=== PATIENT | female | born 1960 | race Caucasian/White ===

== ENCOUNTER 2016-11-11 08:10 | Outpatient (CLI) ==
[2015-05-18 16:23] VITALS: BMI 30.6
[2016-11-11 08:29] LABS: BASOPHILS % (AUTO) 0.4 % (0.0-3.0); EOSINOPHILS # (AUTO) 0.2 K/ul (0.0-0.7); EOSINOPHILS % (AUTO) 1.6 % (0.0-7.0); HEMOGLOBIN 14.2 g/dl (12.0-16.0); IMMATURE GRANULOCYTE % (AUTO) 0.6 % (0.0-5.0); MEAN CORPUSCULAR HEMOGLOBIN 30.6 pg (27.0-31.0); MEAN CORPUSCULAR HGB CONC 33.8 (31.8-35.4); MEAN CORPUSCULAR VOLUME 90.5 fl (81.0-99.0); MONOCYTES # (AUTO) 0.5 K/uL (0.4-2.0); MONOCYTES % (AUTO) 5.2 (0-10); NEUTROPHILS # (AUTO) 7.5 K/ul (2.0-6.9); NEUTROPHILS % (AUTO) 73.2; PLATELET COUNT 241 10^3/uL (140-440); RED BLOOD COUNT 4.64 10^6/ul (4.20-5.40); WHITE BLOOD COUNT 10.26 K/ul (4.6-10.2)
[2016-11-11 08:52] LABS: ALBUMIN 3.2 g/dL (3.4-5.0); ALBUMIN/GLOBULIN RATIO 1.03; ANION GAP 11.4; BILIRUBIN,TOTAL 0.73 mg/dL (0.00-1.20); BUN/CREATININE RATIO 14.47; CALCIUM 8.9 mg/dL (8.2-10.2); CHOL/HDL RATIO 3.5 (4.5-5.5); CREATININE 0.76 mg/dL (0.60-1.30); POTASSIUM 4.4 mmol/L (3.5-5.10); TOTAL PROTEIN 6.3 g/dL (6.4-8.2)
== END 2016-11-11 08:11 | disposition home or self-care (01) ==
LOC: LAB 08:10
PROVIDERS: ATTEND Nurse Practitioner Family
DX: E11.9 Type 2 diabetes mellitus without complications (principal); E78.5 Hyperlipidemia, unspecified; I10 Essential (primary) hypertension
CPT/HCPCS: 36415; 80053; 80061; 83036; 85025

== ENCOUNTER 2017-01-25 09:29 | Emergency (ER) ==
[2017-01-25 09:38] VITALS: BP 137/97; TEMP 98; BMI 30.2
[2017-01-25] MEDS ORDERED: DILAUDID 1 MG/ML SYRINGE ONE (09:46)
[2017-01-25] MEDS ORDERED: SODIUM CHLORIDE 1,000 ML IV STA (09:46)
[2017-01-25] MEDS ORDERED: ZOFRAN 4 MG/2 ML IVP STA (09:46)
[2017-01-25] MEDS ORDERED: DILAUDID 1 MG/ML SYRINGE IVP STA (09:46)
[2017-01-25] MEDS ORDERED: DUONEB NEB STA (09:47)
[2017-01-25] MEDS ORDERED: TORADOL IVP STA (09:50)
[2017-01-25 09:55] LABS: ABG PCO2 41.9 mmHg (35-45); ABG PH 7.372 (7.35-7.45)
[2017-01-25 09:56] LABS: ABG BASE EXCESS -1 (-2.0-2.0); ABG HCO3 24.4 (22.0-26.0); ABG TCO2 26 (22.0-28.0)
[2017-01-25 10:07] LABS: BASOPHILS # (AUTO) 0.1 K/uL (0-0.2); BASOPHILS % (AUTO) 0.5 % (0.0-3.0); EOSINOPHILS # (AUTO) 0.1 K/ul (0.0-0.7); EOSINOPHILS % (AUTO) 1.2 % (0.0-7.0); HEMOGLOBIN 14.8 g/dl (12.0-16.0); IMMATURE GRANULOCYTE % (AUTO) 0.6 % (0.0-5.0); LYMPHOCYTES % (AUTO) 20.2 (10.0-50.0); MEAN CORPUSCULAR HEMOGLOBIN 30.8 pg (27.0-31.0); MEAN CORPUSCULAR HGB CONC 34.4 (31.8-35.4); MEAN CORPUSCULAR VOLUME 89.6 fl (81.0-99.0); MONOCYTES # (AUTO) 0.5 K/uL (0.4-2.0); MONOCYTES % (AUTO) 4.6 (0-10); NEUTROPHILS # (AUTO) 7.4 K/ul (2.0-6.9); NEUTROPHILS % (AUTO) 72.9; PLATELET COUNT 250 10^3/uL (140-440); WHITE BLOOD COUNT 10.09 K/ul (4.6-10.2)
--- NOTE | 2017-01-25 10:22 | CT ---
Exam: CT of the chest without contrast History: Fall with back pain Technique: [address] of the chest without intravascular contrast FINDINGS: Moderate sized right pneumothorax accounting for about 60% lung volume. The left lung is clear. There is no pleural fluid. Atherosclerotic calcification of the aorta and coronary arterie s. Small hiatus hernia is present. Right chest wall subcutaneous emphysema. Right posterolateral 8th, 7th, 6th rib fractures. Rib fractures are nondisplaced. The thoracic spine is intact. Sternu m is intact. No acute findings of the upper abdomen. Impression: 1. Critical result: Right pneumothorax accounting for about 60% lung volume 2. Right posterior sixth, seventh, eighth rib fractures are nondisplaced. The findings were discussed with ordering physician at 1018 hours Central time.
[2017-01-25 10:38] LABS: ALANINE AMINOTRANSFERASE 17 U/L (12-78); ALBUMIN 3.3 g/dL (3.4-5.0); ALBUMIN/GLOBULIN RATIO 1.06; ALKALINE PHOSPHATASE 91 U/L (42-98); ASPARTATE AMINO TRANSFERASE 15 U/L (15-37); BILIRUBIN,TOTAL 1.05 mg/dL (0.00-1.20); BLOOD UREA NITROGEN 11 mg/dL (7-18); BUN/CREATININE RATIO 14.66; CALCIUM 8.8 mg/dL (8.2-10.2); CARBON DIOXIDE 24 mmol/L (21-32); CHLORIDE 108 mmol/L (98-107); CREATINE KINASE 26 U/L; CREATININE 0.75 mg/dL (0.60-1.30); GLUCOSE 234 mg/dL (70-110); SODIUM 140 mmol/L (136-145); TOTAL PROTEIN 6.4 g/dL (6.4-8.2)
--- NOTE | 2017-01-25 10:44 | ED.PDOC ---
General ED Provider: Dr. FENG MILLAN Chief Complaint: Fall Stated Complaint: Patient is a 56 year old female who has a history of DM and COPD who comes to the ER with right chest pain with difficuly breathing due to pain each time she tries to take a breath. She fell 7 steps also hit her head. Time Seen by Physician: 09:30 Mode of Arrival: Wheelchair Information Source: Patient, Family Exam Limitations: No limitations Primary Care Provider: SERA [facility] Nursing and Triage Documentation Reviewed and Agree: Yes Trauma/Injury Complaint Exam - Truncal Trauma Complaint/Exam Location of Pain: Reports: Right, Posterior, Chest Onset: just prior to arrival Symptoms Are: Still present Onset of Pain: Reports: Post accident Initial Severity: Severe Current Severity: Severe Mechanism: Reports: Blunt trauma, Fall Aggravating: Reports: Movement, Deep breathing Alleviating: Reports: None Associated Signs and Symptoms: Reports: Short of air, Chest pain Related History: Reports: COPD. Denies: Similar episode, Occupational injury, Anticoagulants, Prior rib fracture Immobilization Removed Post Exam: No Vertebral Tenderness Present: No Vertebral Deformity Present: No Trachial Deviation Present: No JVD Present: No Crepitus Present: No Diminished Breath Sounds: No Paradoxical Chest Wall Movement Present: No Abdominal Guarding Present: No Abdominal Rigidity Present: No Skin Findings: Present: Contusion Chest and Back Picture: 1 - subcutenous emphazema. Differential Diagnoses: Pneumothorax, Rib Fracture - Trauma Complaint/Exam Location of Pain or Injury: Reports: Head Mechanism of Injury: Reports: Fall Onset/Duration: just prior to arrival Symptoms Are: Still present Timing of Treatment: Immediate Initial Severity: Mild Current Severity: Mild Character: Reports: Aching Aggravating: Reports: None Alleviating: Reports: None Associated Signs and Symptoms: Reports: Swelling. Denies: LOC, Confusion, Memory loss, Lethargy, Vomiting, Bleeding, Extremity disuse, Painful respiration , Hoarseness, Dysphagia, Hemoptysis, Significant blood loss Related History: Denies: Similar episode, Alcohol abuse, Drug abuse, Alleged assault, Anticoagulants, Occupational injury Trauma Findings: Present: Decreased breath sounds (right lower lung ). Absent: Dental tenderness Skin Findings: Present: Normal findings, Tenderness Differential Diagnoses: Fracture Review of Systems - Review Of Systems Constitutional: Reports: No symptoms Eyes: Reports: No symptoms Ears, Nose, Mouth, Throat: Reports: No symptoms Respiratory: Reports: Short of air Cardiac: Reports: Chest pain GI: Reports: No symptoms : Reports: No symptoms Musculoskeletal: Reports: No symptoms Skin: Reports: No symptoms Neurological: Reports: Anxiety Endocrine: Reports: No symptoms Hematologic/Lymphatic: Reports: No symptoms All Other Systems: Reviewed and Negative Past Medical History - Past Medical History Endocrine: Reports: DM 2 Cardiovascular: Reports: Hypertension Respiratory: Reports: COPD Hematological: Reports: None Gastrointestinal: Reports: None Genitourinary: Reports: None Neuro/Psych: Reports: None Musculoskeletal: Reports: Arthritis Cancer: Reports: None Last Menstrual Period: menopause Other Pertinent Past Medical History: GALLBLADDER REMOVAL, APPENDECTOMY, HYSTERECTOMY - Surgical History General Surgical History: Reports: Hysterectomy, Appendectomy, Cholecystectomy - Family History Family History: Reports: Unknown - Social History Smoking Status: Current every day smoker Hx Substance Use: No Alcohol Screening: None Physical Exam - Physical Exam Appearance: Ill-appearing, Obese Ill-appearing: Severe Pain Distress: Severe Eyes: MELISSA, EOMI, Conjunctiva clear Neck: Supple (Trachia Midline.) Respiratory: Airway patent, Breath sounds equal, Breath sounds diminished (on the right base, good breath sounds on the right upper anterior chest. ), Respirations nonlabored Cardiovascular: RRR, Pulses normal, No rub, No murmur GI/: Soft, Nontender, No masses, Bowel sounds normal, No Organomegaly Musculoskeletal: Normal strength, ROM intact, No edema, No calf tenderness Skin: Warm, Dry Neurological: Sensation intact, Motor intact Psychiatric: Anxious Interpretation - Radiology Interpretation Radiology Interpretation By: Radiologist Radiology Results: Positive Exam Interpreted: CT Scan (6,7.8 non displaced rib fracture with 60% pneumonthorax. 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 hence no signs of Tension pneumothorax at this time. VS stable. Course - Course Hematology/Chemistry: 01/25/17 09:55 01/25/17 09:55 Orders, Labs, Meds: Lab Review 01/25/17 01/25/17 09:53 09:55 WBC 10.09 RBC 4.80 Hgb 14.8 Hct 43.0 MCV 89.6 MCH 30.8 MCHC 34.4 RDW Coeff of Balwinder 11.9 Plt Count 250 Immature Gran % (Auto) 0.6 Neut % (Auto) 72.9 Lymph % (Auto) 20.2 Graves % (Auto) 4.6 Eos % (Auto) 1.2 Baso % (Auto) 0.5 Immature Gran # (Auto) 0.1 Neut # 7.4 H Lymph # 2.0 Graves # 0.5 Eos # 0.1 Baso # 0.1 D-Dimer (Manual) 1254.43 Puncture Site Rrad O2 Saturation 89.0 L ABG pH 7.372 ABG pCO2 41.9 ABG pO2 57.0 L* ABG HCO3 24.4 ABG Total CO2 26 ABG Base Excess -1 Aniket Test + FiO2 % 21.0 Sodium 140 Potassium 4.0 Chloride 108 H Carbon Dioxide 24 Anion Gap 12.0 BUN 11 Creatinine 0.75 Estimated GFR (MDRD) 79.00 BUN/Creatinine Ratio 14.66 Glucose 234 H Lactic Acid 12.0 Calcium 8.8 Total Bilirubin 1.05 AST 15 ALT 17 Alkaline Phosphatase 91 Total Creatine Kinase 26 Troponin I < 0.0100 B-Natriuretic Peptide 118 H Total Protein 6.4 Albumin 3.3 L Globulin 3.1 Albumin/Globulin Ratio 1.06 Procalcitonin < 0.05 Orders Category Date Time Status ABG DRAW REQUEST Stat CARDIO 01/25/17 09:52 Completed EKG-(ED ONLY) Stat CARDIO 01/25/17 09:45 Completed NEBULIZER TREATMENT Stat CARDIO 01/25/17 09:47 Completed ABG Routine LAB 01/25/17 09:53 Completed B-TYPE NATRIURETIC PEPTIDE Stat LAB 01/25/17 09:55 Completed BLOOD CULTURE Stat LAB 01/25/17 09:55 Received CBC W/ AUTO DIFF Stat LAB 01/25/17 09:55 Completed COMPREHENSIVE METABOLIC PANEL Stat LAB 01/25/17 09:55 Completed CREATINE KINASE Stat LAB 01/25/17 09:55 Completed D-DIMER Stat LAB 01/25/17 09:55 Completed LACTIC ACID Stat LAB 01/25/17 09:55 Completed PROCALCITONIN Stat LAB 01/25/17 09:55 Completed TROPONIN I Stat LAB 01/25/17 09:55 Completed Hydromorphone HCl [Dilaudid 1 mg/ml Syringe] MEDS 01/25/17 09:46 Discontinued 1 mg .ROUTE .STK-MED ONE Hydromorphone HCl [Dilaudid 1 mg/ml Syringe] MEDS 01/25/17 09:46 Discontinued 1 mg IVP ONCE STA Ipratropium/Albuterol Neb [Duoneb] MEDS 01/25/17 09:47 Discontinued 1 vial NEB ONCE STA Ketorolac Tromethamine [Toradol] MEDS 01/25/17 09:50 Discontinued 30 mg IVP ONCE STA Ondansetron HCl/Pf [Zofran 4 mg/2 ml] MEDS 01/25/17 09:46 Discontinued 4 mg IVP ONCE STA Sodium Chloride 0.9% [Sodium Chloride] 1,000 ml MEDS 01/25/17 09:[address] CHEST W/O CONTRAST Stat RADS 01/25/17 09:[address] HEAD W/O CONTRAST Stat RADS 01/25/17 10:44 Completed Medications Discontinued Medications Generic Name Dose Route Start Last Admin Trade Name Freq PRN Reason Stop Dose Admin Albuterol/Ipratropium 1 vial 01/25/17 09:47 01/25/17 10:22 Duoneb NEB 01/25/17 09:48 1 vial ONCE STA Administration Hydromorphone HCl 1 mg 01/25/17 09:46 01/25/17 09:51 Dilaudid 1 Mg/Ml Syringe IVP 01/25/17 09:47 1 mg ONCE STA Administration Sodium Chloride 1,000 mls @ 1,000 mls/hr 01/25/17 09:46 01/25/17 10:14 Sodium Chloride IV 01/25/17 10:45 1,000 mls/hr BOLUS STA Administration Ketorolac Tromethamine 30 mg 01/25/17 09:50 01/25/17 10:17 Toradol IVP 01/25/17 09:51 30 mg ONCE STA Administration Ondansetron HCl 4 mg 01/25/17 09:46 01/25/17 10:14 Zofran 4 Mg/2 Ml IVP 01/25/17 09:47 4 mg ONCE STA Administration Vital Signs: Temp Pulse Resp BP Pulse Ox 01/25/17 09:29 98 F 101 H 20 137/97 H 94 L Departure - Departure Time of Disposition: 10:45 Disposition: TSF SHORT-TRM HOSP Discharge Problem: Ribs, multiple fractures Qualifiers: Encounter type: initial encounter Fracture type: closed Laterality: right Qualifier Code: (S22.41XA) Multiple fractures of ribs, right side, initial encounter for closed fracture Pneumothorax, closed, traumatic Qualifiers: Encounter type: initial encounter Qualifier Code: (S27.0XXA) Traumatic pneumothorax, initial encounter Condition: Stable Pt referred to PMD for follow-up: No Allergies/Adverse Reactions: Allergies iodine Adverse Reaction (Verified 01/25/17 09:50) Home Medications: Ambulatory Orders Glipizide [Glucotrol] 10 mg PO BID #60 tablet 01/02/15 Omeprazole [Prilosec] 20 mg PO DAILY #30 01/02/15 Aspirin 81 mg PO ONCE 05/25/15 Nitroglycerin 0.4 mg SL PRN 05/25/15 Metoprolol Succinate 75 mg PO BID 10/09/15 Clopidogrel Bisulfate [Clopidogrel] 75 mg PO DAILY 01/25/17 Mirabegron [Myrbetriq] 25 mg PO DAILY 01/25/17 Multivitamin [Multi-Vitamin Daily] 1 each PO DAILY 01/25/17
--- NOTE | 2017-01-25 11:07 | CT ---
EXAM: CT brain without contrast HISTORY: Fall with injury and pain TECHNIQUE: CT of the brain without intravenous contrast FINDINGS: There is no acute hemorrhage midline shift or mass effect. No hydrocephalus or abnormal extra-axial fluid collection. Generalized involutional atrophy, mild. Chronic microvascular change s of the white matter tracts, mild. No acute large vessel territorial infarct is seen. The bony cr anium appears normal. The visualized paranasal sinuses are clear. Right parietal scalp swelling. IMPRESSION: 1. Chronic changes as described. No acute intracranial abnormality is seen.
== END 2017-01-25 11:05 | disposition short-term general hospital (02) ==
LOC: ED 09:29
DX: S22.41XA Multiple fractures of ribs, right side, initial encounter for closed fracture (principal); S27.0XXA Traumatic pneumothorax, initial encounter; S09.90XA Unspecified injury of head, initial encounter; W10.9XXA Fall (on) (from) unspecified stairs and steps, initial encounter; E11.9 Type 2 diabetes mellitus without complications; I10 Essential (primary) hypertension; J44.9 Chronic obstructive pulmonary disease, unspecified; F17.210 Nicotine dependence, cigarettes, uncomplicated; Z79.899 Other long term (current) drug therapy
CPT/HCPCS: 36415; 80053; 82550; 82803; 83605; 83880; 84145; 84484; 85025; 85379; 87040; 93005; 93010; 94640; 96360; 96375; 99285

== ENCOUNTER 2017-01-25 11:15 | Outpatient (CLI) ==
[2017-01-25 09:38] VITALS: BMI 30.2
== END 2017-01-25 11:16 | disposition home or self-care (01) ==
LOC: AMBL 11:15
PROVIDERS: ATTEND Internal Medicine Geriatric Medicine
DX: S27.0XXA Traumatic pneumothorax, initial encounter (principal); S22.41XA Multiple fractures of ribs, right side, initial encounter for closed fracture; R06.9 Unspecified abnormalities of breathing; S09.90XA Unspecified injury of head, initial encounter; I49.3 Ventricular premature depolarization; W10.9XXA Fall (on) (from) unspecified stairs and steps, initial encounter

== ENCOUNTER 2017-02-24 16:06 | Outpatient (CLI) ==
--- NOTE | 2017-02-24 16:43 | DI ---
EXAM: Two views of the chest. History: Trauma and known rib fractures. Comparison: Chest radiograph 05/18/2015, chest CT 01/25/2017 Findings: Heart size is normal. No pneumothorax. No consolidation. No pleural fluid. Multiple d isplaced right rib fractures again noted with probable early callus formation. Impression: No acute cardiopulmonary process. Healing right rib fractures.
== END 2017-02-24 16:07 | disposition home or self-care (01) ==
LOC: RAD 16:06
PROVIDERS: ATTEND Nurse Practitioner Family
DX: S22.49XA Multiple fractures of ribs, unspecified side, initial encounter for closed fracture (principal); Z72.0 Tobacco use

== ENCOUNTER 2017-03-27 16:40 | Outpatient (CLI) ==
[2017-03-27 16:55] LABS: BASOPHILS % (AUTO) 0.6 % (0.0-3.0); EOSINOPHILS # (AUTO) 0.1 K/ul (0.0-0.7); EOSINOPHILS % (AUTO) 1.3 % (0.0-7.0); HEMATOCRIT 43.8 % (37.0-47.0); HEMOGLOBIN 14.7 g/dl (12.0-16.0); IMMATURE GRANULOCYTE % (AUTO) 0.4 % (0.0-5.0); LYMPHOCYTES # (AUTO) 2.4 K/uL (0.60-3.4); LYMPHOCYTES % (AUTO) 34.4 (10.0-50.0); MEAN CORPUSCULAR HEMOGLOBIN 29.9 pg (27.0-31.0); MEAN CORPUSCULAR HGB CONC 33.6 (31.8-35.4); MONOCYTES # (AUTO) 0.5 K/uL (0.4-2.0); MONOCYTES % (AUTO) 6.6 (0-10); NEUTROPHILS # (AUTO) 3.9 K/ul (2.0-6.9); NEUTROPHILS % (AUTO) 56.7; PLATELET COUNT 320 10^3/uL (140-440); RED BLOOD COUNT 4.92 10^6/ul (4.20-5.40); WHITE BLOOD COUNT 6.87 K/ul (4.6-10.2)
[2017-03-27 17:02] LABS: ALBUMIN 3.5 g/dL (3.4-5.0); ALBUMIN/GLOBULIN RATIO 1.06; ANION GAP 15.1; BILIRUBIN,TOTAL 1.11 mg/dL (0.00-1.20); BUN/CREATININE RATIO 16.16; CALCIUM 9.4 mg/dL (8.2-10.2); CREATININE 0.99 mg/dL (0.60-1.30); POTASSIUM 4.1 mmol/L (3.5-5.10); TOTAL PROTEIN 6.8 g/dL (6.4-8.2)
== END 2017-03-27 16:41 | disposition home or self-care (01) ==
LOC: LAB 16:40
PROVIDERS: ATTEND Nurse Practitioner Family
DX: E11.9 Type 2 diabetes mellitus without complications (principal); R11.2 Nausea with vomiting, unspecified; R53.83 Other fatigue
CPT/HCPCS: 36415; 80053; 83036; 85025

== ENCOUNTER 2017-04-10 08:17 | Emergency (ER) ==
[2017-04-10] MEDS ORDERED: ASPIRIN CHEWABLE ONE (08:21)
[2017-04-10] MEDS ORDERED: ASPIRIN CHEWABLE PO STA (08:21)
[2017-04-10 08:32] VITALS: BP 132/84; TEMP 96.3; BMI 32.5
[2017-04-10 08:35] LABS: BASOPHILS # (AUTO) 0.1 K/uL (0-0.2); BASOPHILS % (AUTO) 0.6 % (0.0-3.0); EOSINOPHILS # (AUTO) 0.1 K/ul (0.0-0.7); EOSINOPHILS % (AUTO) 0.7 % (0.0-7.0); HEMATOCRIT 40.1 % (37.0-47.0); HEMOGLOBIN 13.9 g/dl (12.0-16.0); IMMATURE GRANULOCYTE % (AUTO) 0.6 % (0.0-5.0); LYMPHOCYTES # (AUTO) 2.8 K/uL (0.60-3.4); MEAN CORPUSCULAR HEMOGLOBIN 30.2 pg (27.0-31.0); MEAN CORPUSCULAR HGB CONC 34.7 (31.8-35.4); MEAN CORPUSCULAR VOLUME 87.2 fl (81.0-99.0); MONOCYTES # (AUTO) 0.6 K/uL (0.4-2.0); MONOCYTES % (AUTO) 5.6 (0-10); NEUTROPHILS # (AUTO) 6.7 K/ul (2.0-6.9); NEUTROPHILS % (AUTO) 65.5; PLATELET COUNT 397 10^3/uL (140-440)
--- NOTE | 2017-04-10 08:50 | ED.PDOC ---
General ED Provider: Dr. SACHI SANCHEZ-ER Chief Complaint: Chest Pain Stated Complaint: im hurting and it feels like my heart attack last fall Time Seen by Physician: 08:30 Mode of Arrival: Walk-In Information Source: Patient Exam Limitations: No limitations [facility] and Triage Documentation Reviewed and Agree: Yes Cardiovascular Complaint Exam - Chest Pain Complaint/Exam Onset: Sudden Duration: 30 min Symptoms Are: Still present Timing: Constant Initial Severity: Moderate Current Severity: Moderate Location: Reports: Diffuse, Discrete Pain Radiates: Reports: Neck Character: Reports: Dull, Aching, Burning, Heaviness Aggravating: Reports: None Alleviating: Reports: Nitro Associated Signs and Symptoms: Reports: Diaphoresis, Nausea. Denies: Vomiting, Fever, Palpitations, Cough, Hemoptysis, Back pain, Abdominal pain, Dizziness, Short of air, Calf pain, Calf swelling Related History: Reports: Similar episode Related Surgical History: Reports: Cardiac Cath History of Healthcare-Acquired Pneumonia: Reports: No AMI/ACS Risk Factors: Reports: Myocardial Infarction TAD Risk Factors: Reports: None Pulmonary Embolism Risk Factors: Reports: None Prior Care for this Complaint: No Recent Stress Test: No Recent Echo/LV Function: No JVD Present: No Subcutaneous Emphysema Present: No Diminshed Breath Sounds: No Reproducible Chest Wall Pain: No Bilateral Pulses Present: Yes Unequal Pulses Noted: No If Risk Factors for AMI/ACS Consider: EKG, Cardiac Enzymes, Oxygen, Aspirin 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 Differential Diagnoses: Acute [place], ACS Quality Indicator For Non-Traumatic Chest Pain/Syncope: EKG Performed Review of Systems - Review Of Systems Constitutional: Reports: No symptoms Eyes: Reports: No symptoms Ears, Nose, Mouth, Throat: Reports: No symptoms Respiratory: Reports: Short of air Cardiac: Reports: Chest pain GI: Reports: No symptoms : Reports: No symptoms Musculoskeletal: Reports: No symptoms Skin: Reports: No symptoms Neurological: Reports: No symptoms Endocrine: Reports: No symptoms Hematologic/Lymphatic: Reports: No symptoms All Other Systems: Reviewed and Negative Past Medical History - Past Medical History Previously Healthy: No Endocrine: Reports: DM 2 Cardiovascular: Reports: CAD, UT, Hypertension Respiratory: Reports: COPD Hematological: Reports: None Gastrointestinal: Reports: None Genitourinary: Reports: None Neuro/Psych: Reports: None Musculoskeletal: Reports: Arthritis Cancer: Reports: None Last Menstrual Period: hysterectomy Other Pertinent Past Medical History: GALLBLADDER REMOVAL, APPENDECTOMY, HYSTERECTOMY - Surgical History General Surgical History: Reports: Hysterectomy, Appendectomy, Cholecystectomy - Family History Family History: Reports: Unknown - Social History Smoking Status: Former smoker Hx Substance Use: No Alcohol Screening: None Lives: With family Physical Exam - Physical Exam Appearance: Well-appearing, No pain distress, Well-nourished Pain Distress: Moderate Eyes: MELISSA, EOMI, Conjunctiva clear ENT: Ears normal, Nose normal, Oropharynx normal Neck: Supple Respiratory: Airway patent Cardiovascular: RRR, Pulses normal, No rub, No murmur GI/: Soft, Nontender, No masses, Bowel sounds normal, No Organomegaly Musculoskeletal: Normal strength, ROM intact, No edema, No calf tenderness Skin: Warm, Dry, Normal color Neurological: Sensation intact, Motor intact, Reflexes intact, Cranial nerves intact, Alert, Oriented Psychiatric: Affect appropriate, Mood appropriate Interpretation - EKG Interpretation Time of EKG #1: 08:50 Rate: Normal Rhythm: Sinus Ectopy: None [place]: NL ST Segment: Other Interpretation: st-t wave changes Re-Evaluation - Re-Evaluation Time of Re-Evaluation: 08:45 Status: Improved Vital Signs Stable: Yes Pain Level: 1 Appearance: NAD Lungs: Clear Skin: Warm and Dry Neuro: Alert and Oriented X3 CV: RRR Physician Notification - Case Discussed Physician Notified: dr jones(called transfer center--left two messages--we called dr cheung in [place] Critical Care Note - Critical Care Note Total Time (mins): 15 Course - Course Orders, Labs, Meds: Orders Category Date Time Status EKG-(ED ONLY) Stat CARDIO 04/10/17 08:20 Completed [employer] Analyst [ED DUMPSTER OPERATOR APPLIED] .ONCE EMERGENCY 04/10/17 08:21 Active IV [ED IV/MEDIPORT/POWERPORT] .ONCE EMERGENCY 04/10/17 08:20 Active OXYGEN [ED APPLY O2] .ONCE EMERGENCY 04/10/17 08:20 Active AMYLASE Stat LAB 04/10/17 08:24 Received BNP [B-TYPE NATRIURETIC PEPTIDE] Stat LAB 04/10/17 08:24 Received CBC W/ AUTO DIFF Stat LAB 04/10/17 08:24 Received COMPREHENSIVE METABOLIC PANEL Stat LAB 04/10/17 08:24 Received CREATINE KINASE Stat LAB 04/10/17 08:24 Received LIPASE Stat LAB 04/10/17 08:24 Received TROPONIN I Stat LAB 04/10/17 08:24 Received 0.9 % Sodium Chloride [Saline Flush] MEDS 04/10/17 08:20 Active 1 syr IVF PRN PRN Aspirin [Aspirin Chewable] MEDS 04/10/17 08:21 Discontinued 324 mg .ROUTE .STK-MED ONE Aspirin [Aspirin Chewable] MEDS 04/10/17 08:21 Discontinued 324 mg PO ONCE STA Medications Generic Name Dose Route Start Last Admin Trade Name Freq PRN Reason Stop Dose Admin Sodium Chloride 1 syr 04/10/17 08:20 Saline Flush IVF PRN PRN To flush IV Discontinued Medications Generic Name Dose Route Start Last Admin Trade Name Freq PRN Reason Stop Dose Admin Aspirin 324 mg 04/10/17 08:21 Aspirin Chewable PO 04/10/17 08:22 ONCE STA Vital Signs: Temp Pulse Resp BP Pulse Ox 04/10/17 08:25 96.3 F L 124 H 24 132/84 95 AKIL Risk Score AKIL Risk Score: Risk Score Odds of by 30D 0 0.1 (0.1-0.2) 1 0.3 (0.2-0.3) 2 0.4 (0.3-0.5) 3 0.7 (0.6-0.9) 4 1.2 (1.0-1.5) 5 2.2 (1.9-2.6) 6 3.0 (2.5-3.6) 7 4.8 (3.8-6.1) Departure - Departure Time of Disposition: 08:52 Disposition: TSF SHORT-TRM HOSP Discharge Problem: Chest pain Instructions: Chest Pain (ED) Condition: Fair Pt referred to PMD for follow-up: Yes Allergies/Adverse Reactions: Allergies iodine Adverse Reaction (Verified 01/25/17 09:50) Home Medications: Ambulatory Orders Glipizide [Glucotrol] 10 mg PO BID #60 tablet 01/02/15 Omeprazole [Prilosec] 20 mg PO DAILY #30 01/02/15 Aspirin 81 mg PO ONCE 05/25/15 Nitroglycerin 0.4 mg SL PRN 05/25/15 Clopidogrel Bisulfate [Clopidogrel] 75 mg PO DAILY 01/25/17 Mirabegron [Myrbetriq] 25 mg PO DAILY 01/25/17 Multivitamin [Multi-Vitamin Daily] 1 each PO DAILY 01/25/17 Aspirin 81 mg PO d 02/14/17 Cyanocobalamin (Vitamin B-12) [Liquid B-12] 5,000 mcg PO d 02/14/17 Glipizide 10 mg PO BID 02/14/17 Metoprolol Succinate 75 mg PO d 02/14/17 Transfer Form Completed: Yes Disposition Discussed With: Patient
[2017-04-10 09:06] LABS: ALBUMIN 3.7 g/dL (3.4-5.0); ALBUMIN/GLOBULIN RATIO 1.12; ANION GAP 19.8; BILIRUBIN,TOTAL 1.21 mg/dL (0.00-1.20); BUN/CREATININE RATIO 13.84; CALCIUM 10.1 mg/dL (8.2-10.2); CREATININE 1.95 mg/dL (0.60-1.30); POTASSIUM 3.8 mmol/L (3.5-5.10); TROPONIN I 0.017 ng/ml (0.0000-0.4000)
== END 2017-04-10 08:47 | disposition short-term general hospital (02) ==
LOC: ED 08:17
DX: R07.9 Chest pain, unspecified (principal); R06.02 Shortness of breath; I25.10 Atherosclerotic heart disease of native coronary artery without angina pectoris; E11.9 Type 2 diabetes mellitus without complications; I10 Essential (primary) hypertension; I25.2 Old myocardial infarction; J44.9 Chronic obstructive pulmonary disease, unspecified; Z79.899 Other long term (current) drug therapy
CPT/HCPCS: 36415; 80053; 82150; 82550; 83690; 83880; 84484; 85025; 93005; 93010; 99285

== ENCOUNTER 2017-04-10 08:47 | Outpatient (CLI) ==
[2017-04-10 08:32] VITALS: BMI 32.5
== END 2017-04-10 08:48 | disposition short-term general hospital (02) ==
LOC: AMBL 08:47
PROVIDERS: ATTEND Family Medicine
DX: R07.9 Chest pain, unspecified (principal)

== ENCOUNTER 2017-05-14 07:20 | Outpatient (CLI) ==
--- NOTE | 2017-05-14 08:31 | US ---
EXAM: Ultrasound retroperitoneal complete. HISTORY: Hematuria. Right renal cyst COMPARISON: CT 05/09/2017. TECHNIQUE: Multiple varghese scale and color Doppler images. FINDINGS: Right kidney measures 9.1 x 3.8 x 3.5 cm and contains a simple cyst measuring approximate ly 2.3 x 1.3 x 1.5 cm. The left kidney measures 11.6 x 4.7 x 4.3 cm. 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 Thi s makes assessment for focal cortical lesions in the left kidney difficult. The focal hypoechoic ar ea measuring approximately 3.7 x 3.4 cm in the mid left renal cortex was measured by the technologis t. Cortical echogenicity in both kidneys is normal. There is no hydronephrosis. Urinary bladder is unremarkable. IMPRESSION: 1. 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 Consider follow-up abdominal MRI contrast e nhanced CT to exclude a mass. 2. Simple right renal cyst.
== END 2017-05-14 07:21 | disposition home or self-care (01) ==
LOC: RAD 07:20
PROVIDERS: ATTEND Nurse Practitioner Family
DX: R31.9 Hematuria, unspecified (principal); N28.1 Cyst of kidney, acquired
CPT/HCPCS: 76770

== ENCOUNTER 2017-06-28 15:32 | Emergency (ER) ==
[2017-06-28 15:42] VITALS: BP 110/64; TEMP 98; BMI 33.6
--- NOTE | 2017-06-28 16:18 | ED.PDOC ---
General ED Provider: Dr. ADY JUAREZ Chief Complaint: Diabetes Stated Complaint: Feeling run down for one week. Home accuchecks running >400 every day, and >600 today. No dysuria but has increased urinary frequency. Also dx'd with "mass on my kidney" for which she's getting more work up on Friday. Time Seen by Physician: 16:06 Mode of Arrival: Walk-In Information Source: Patient Exam Limitations: No limitations [facility] and Triage Documentation Reviewed and Agree: Yes Miscellaneous Complaint Exam - Complex/Multi-System Complaint/Exam Onset/Duration: 1 week Symptoms Are: Still present Initial Severity: Mild Current Severity: Moderate Location of Pain: No pain Associated Signs and Symptoms: Reports: Weakness, Dysuria (no difficulty urinating but much increased frequency of urination) Recent Echo/LV Function: No Respiratory Distress: None JVD Present: No Tachypnea Present: No Stridor Present: No Abdominal Findings: Present: Normal findings (mild generalized tenderness, no rebound or guarding) Meningeal Signs Positive: No Focal Weakness: Present: None Gag Reflex Present: Yes Babinski Sign: Negative Right, Negative Left Skin Findings: Present: Normal findings Joint Swelling Present: No In-Dwelling Device Present: No Differential Diagnosis: Cardiac Ischemia, Metabolic Abnormality, Sepsis, UTI Quality Indicators For Pneumonia/CAP: SpO2 assessed, Vital signs, Mental status assessed Review of Systems - Review Of Systems Constitutional: Reports: Malaise Eyes: Reports: No symptoms Ears, Nose, Mouth, Throat: Reports: No symptoms Respiratory: Reports: No symptoms Cardiac: Reports: No symptoms GI: Reports: No symptoms : Reports: Frequency Musculoskeletal: Reports: No symptoms Skin: Reports: No symptoms Neurological: Reports: No symptoms Endocrine: Reports: Increased urine Hematologic/Lymphatic: Reports: No symptoms All Other Systems: Reviewed and Negative Past Medical History - Past Medical History Previously Healthy: No Endocrine: Reports: DM 2 Cardiovascular: Reports: CAD, ID, Hypertension Respiratory: Reports: COPD Hematological: Reports: None Gastrointestinal: Reports: GERD Genitourinary: Reports: None Neuro/Psych: Reports: None Musculoskeletal: Reports: Arthritis Cancer: Reports: None Last Menstrual Period: unknown Other Pertinent Past Medical History: GALLBLADDER REMOVAL, APPENDECTOMY, HYSTERECTOMY - Surgical History General Surgical History: Reports: Hysterectomy, Appendectomy, Cholecystectomy - Family History Family History: Reports: Unknown - Social History Smoking Status: Former smoker (quit Jan, 2017) Hx Substance Use: No Alcohol Screening: Occasionally Lives: With family - Immunizations Tetanus Shot up to Date: No Influenza Vaccine within 12 Months: No Pneumococcal Vaccine up to Date: No Physical Exam - Physical Exam Appearance: Ill-appearing, No pain distress, Well-nourished, Obese Ill-appearing: Moderate Pain Distress: None Eyes: MELISSA, EOMI, Conjunctiva clear ENT: Ears normal, Nose normal, Oropharynx normal Neck: Supple Respiratory: Airway patent, Breath sounds clear, Breath sounds equal, Respirations nonlabored Cardiovascular: RRR, Pulses normal, No rub, No murmur GI/: Soft, No masses, Bowel sounds normal, No Organomegaly, Tender (mild generalized tenderness) Musculoskeletal: Normal strength, ROM intact, No edema, No calf tenderness Skin: Warm, Dry, Normal color Neurological: Sensation intact, Motor intact, Reflexes intact, Cranial nerves intact, Alert, Oriented Psychiatric: Affect appropriate, Mood appropriate Interpretation - EKG Interpretation Time of EKG #1: 16:23 Rate: Normal Rhythm: Sinus Ectopy: None [place]: NL ST Segment: Normal Interpretation: possible anterolateral infarct, age undetermined Physician Notification - Case Discussed Endorsed To/Discussed With: Dr. Mao Time of Discussion: 19:00 Critical Care Note - Critical Care Note Total Time (mins): 0 Course - Course Hematology/Chemistry: 06/28/17 16:30 06/28/17 16:30 Orders, Labs, Meds: Lab Review 06/28/17 06/28/17 06/28/17 16:30 16:30 16:30 WBC 8.31 RBC 4.86 Hgb 14.4 Hct 42.2 MCV 86.8 MCH 29.6 MCHC 34.1 RDW Coeff of Balwinder 11.9 Plt Count 290 Immature Gran % (Auto) 0.6 Neut % (Auto) 73.5 Lymph % (Auto) 19.0 Glenn % (Auto) 5.7 Eos % (Auto) 0.6 Baso % (Auto) 0.6 Immature Gran # (Auto) 0.1 Neut # 6.1 Lymph # 1.6 Glenn # 0.5 Eos # 0.1 Baso # 0.1 Sodium Cancelled Potassium Cancelled Chloride Cancelled Carbon Dioxide Cancelled Anion Gap Cancelled BUN Cancelled Creatinine Cancelled Est Cr Clr Drug Dosing Cancelled Estimated GFR (MDRD) Cancelled BUN/Creatinine Ratio Cancelled Glucose Cancelled Lactic Acid 16.1 Calcium Cancelled Total Bilirubin Cancelled AST Cancelled ALT Cancelled Alkaline Phosphatase Cancelled Total Creatine Kinase Cancelled Troponin I Cancelled Total Protein Cancelled Albumin Cancelled Globulin Cancelled Albumin/Globulin Ratio Cancelled Urine Color Urine Clarity Urine pH Ur Specific [place] Urine Protein Urine Glucose (UA) Urine Ketones Urine Blood Urine Nitrite Urine Bilirubin Urine Urobilinogen Ur Leukocyte Esterase Urine Microscopic RBC Urine Microscopic WBC Ur Squamous Epith Cells 06/28/17 06/28/17 16:30 16:30 WBC RBC Hgb Hct MCV MCH MCHC RDW Coeff of Balwinder Plt Count Immature Gran % (Auto) Neut % (Auto) Lymph % (Auto) Glenn % (Auto) Eos % (Auto) Baso % (Auto) Immature Gran # (Auto) Neut # Lymph # Glenn # Eos # Baso # Sodium 134 L Potassium 3.8 Chloride 100 Carbon Dioxide 27 Anion Gap 10.8 BUN 15 Creatinine 1.29 Est Cr Clr Drug Dosing Estimated GFR (MDRD) 42.00 BUN/Creatinine Ratio 11.62 Glucose 498 H Lactic Acid Calcium 9.0 Total Bilirubin 0.96 AST 18 ALT 21 Alkaline Phosphatase 110 H Total Creatine Kinase 25 Troponin I 0.0160 Total Protein 6.7 Albumin 3.3 L Globulin 3.4 Albumin/Globulin Ratio 0.97 Urine Color Yellow Urine Clarity Clear Urine pH 5.0 Ur Specific [place] <=1.005 Urine Protein Negative Urine Glucose (UA) 2+ Urine Ketones Negative Urine Blood Trace-lysed Urine Nitrite Negative Urine Bilirubin Negative Urine Urobilinogen 0.2 Ur Leukocyte Esterase Negative Urine Microscopic RBC 5-10 Urine Microscopic WBC 0-2 Ur Squamous Epith Cells 0-2 Orders Category Date Time Status EKG-(ED ONLY) Stat CARDIO 06/28/17 16:15 Completed BLOOD GLUCOSE MONITORING Q1HR CARE 06/28/17 18:24 Active CBC W/ AUTO DIFF Stat LAB 06/28/17 16:30 Completed COMPREHENSIVE METABOLIC PANEL Routine LAB 06/28/17 16:30 Completed CREATINE KINASE Routine LAB 06/28/17 16:30 Completed LACTIC ACID Stat LAB 06/28/17 16:30 Completed TROPONIN I Routine LAB 06/28/17 16:30 Completed URINALYSIS C & S IF INDICATED Stat LAB 06/28/17 16:30 Completed Insulin Regular, Human [Humulin R] MEDS 06/28/17 18:23 Discontinued 15 unit SUBCUT ONCE STA Medications Discontinued Medications Generic Name Dose Route Start Last Admin Trade Name Zuri PRN Reason Stop Dose Admin Insulin Human Regular 15 unit 06/28/17 18:23 06/28/17 18:32 Humulin R SUBCUT 06/28/17 18:24 15 unit ONCE STA Administration Vital Signs: Temp Pulse Resp BP Pulse Ox 06/28/17 15:33 98.0 F 110 H 20 110/64 97 Departure - Departure Time of Disposition: 20:30 Disposition: HOME SELF-CARE Discharge Problem: Diabetes mellitus type 2, uncontrolled Instructions: Type 2 Diabetes in Adults (ED) Condition: Stable Pt referred to PMD for follow-up: Yes (follow up with own doctor LUZ MARIA) Additional Instructions: Follow up with your PCP as soon as possible Allergies/Adverse Reactions: Allergies iodine Adverse Reaction (Verified 06/28/17 15:43) Home Medications: Ambulatory Orders Glipizide [Glucotrol] 10 mg PO BID #60 tablet 01/02/15 Omeprazole [Prilosec] 20 mg PO DAILY #30 01/02/15 Nitroglycerin 0.4 mg SL PRN 05/25/15 Clopidogrel Bisulfate [Clopidogrel] 75 mg PO DAILY 01/25/17 Multivitamin [Multi-Vitamin Daily] 1 each PO DAILY 01/25/17 Aspirin 81 mg PO d 02/14/17 Cyanocobalamin (Vitamin B-12) [Liquid B-12] 5,000 mcg PO d 02/14/17 Metoprolol Succinate 75 mg PO d 02/14/17 Disposition Discussed With: Patient
[2017-06-28 16:36] LABS: BASOPHILS # (AUTO) 0.1 K/uL (0-0.2); BASOPHILS % (AUTO) 0.6 % (0.0-3.0); EOSINOPHILS # (AUTO) 0.1 K/ul (0.0-0.7); EOSINOPHILS % (AUTO) 0.6 % (0.0-7.0); HEMATOCRIT 42.2 % (37.0-47.0); HEMOGLOBIN 14.4 g/dl (12.0-16.0); IMMATURE GRANULOCYTE % (AUTO) 0.6 % (0.0-5.0); LYMPHOCYTES # (AUTO) 1.6 K/uL (0.60-3.4); MEAN CORPUSCULAR HEMOGLOBIN 29.6 pg (27.0-31.0); MEAN CORPUSCULAR HGB CONC 34.1 (31.8-35.4); MEAN CORPUSCULAR VOLUME 86.8 fl (81.0-99.0); MONOCYTES # (AUTO) 0.5 K/uL (0.4-2.0); MONOCYTES % (AUTO) 5.7 (0-10); NEUTROPHILS # (AUTO) 6.1 K/ul (2.0-6.9); NEUTROPHILS % (AUTO) 73.5; PLATELET COUNT 290 10^3/uL (140-440); RED BLOOD COUNT 4.86 10^6/ul (4.20-5.40); WHITE BLOOD COUNT 8.31 K/ul (4.6-10.2)
[2017-06-28 16:46] LABS: BILIRUBIN,URINE Negative (NEGATIVE); KETONES,URINE Negative (NEGATIVE); LEUKOCYTE ESTERASE ,URINE Negative (NEGATIVE); NITRITE,URINE Negative (NEGATIVE); PROTEIN,URINE Negative (NEGATIVE); URINE, BLOOD Trace-lysed (NEGATIVE)
[2017-06-28 16:49] LABS: ADD URINE MICROSCOPIC YES
[2017-06-28 18:15] LABS: ANION GAP 10.8; BUN/CREATININE RATIO 11.62; CREATININE 1.29 mg/dL (0.60-1.30); POTASSIUM 3.8 mmol/L (3.5-5.10)
[2017-06-28 18:16] LABS: ALBUMIN 3.3 g/dL (3.4-5.0); ALBUMIN/GLOBULIN RATIO 0.97; BILIRUBIN,TOTAL 0.96 mg/dL (0.00-1.20); TOTAL PROTEIN 6.7 g/dL (6.4-8.2); TROPONIN I 0.016 ng/ml (0.0000-0.4000)
[2017-06-28] MEDS: HUMULIN R SUBCUT STA (18:32)
== END 2017-06-28 20:33 | disposition home or self-care (01) ==
LOC: ED 15:32
DX: E11.65 Type 2 diabetes mellitus with hyperglycemia (principal); R53.1 Weakness; R35.0 Frequency of micturition; I25.2 Old myocardial infarction; I25.10 Atherosclerotic heart disease of native coronary artery without angina pectoris; I10 Essential (primary) hypertension; Z79.899 Other long term (current) drug therapy
CPT/HCPCS: 36415; 80053; 81001; 82550; 82962; 83605; 84484; 85025; 93005; 93010; 96372; 99284

== ENCOUNTER 2017-07-15 19:59 | Inpatient (IN) ==
[2017-07-15] MEDS ORDERED: SODIUM CHLORIDE 1,000 ML IV STA (20:01)
[2017-07-15] MEDS ORDERED: ZOFRAN 4 MG/2 ML IVP STA (20:07)
[2017-07-15 20:08] VITALS: BMI 33.0
[2017-07-15 20:22] LABS: BILIRUBIN,URINE Negative (NEGATIVE); KETONES,URINE Negative (NEGATIVE); LEUKOCYTE ESTERASE ,URINE Trace (NEGATIVE); NITRITE,URINE Negative (NEGATIVE); PROTEIN,URINE Negative (NEGATIVE); URINE, BLOOD 3+ (NEGATIVE)
--- NOTE | 2017-07-15 20:22 | ED.PDOC ---
General ED Provider: Dr. SACHI SANCHEZ-ER Chief Complaint: Diabetes Stated Complaint: joanie been vomiting and my bs is up Time Seen by Physician: 20:05 Mode of Arrival: Walk-In Information Source: Patient, Family Exam Limitations: No limitations Primary Care Provider: SERA B[facility] Nursing and Triage Documentation Reviewed and Agree: Yes GI Complaint Exam - Vomiting/Diarrhea Complaint/Exam Onset/Duration: 3 days Symptoms Are: Still present Episodes of Vomiting over last 24 Hours: 3 Initial Severity: Mild Current Severity: Mild Character of Vomiting: Reports: Non-bilious Aggravating: Reports: None Alleviating: Reports: None Associated Signs and Symptoms: Reports: Abdominal pain, Cramping Non-GI Risk Factors: Reports: None Abdominal Findings: Present: None Kussmaul Respirations Present: No Differential Diagnoses: Dehydration, Viral Gastroenteritis, Bacterial Gastroenteritis, Pancreatitis, UTI Review of Systems - Review Of Systems Constitutional: Reports: No symptoms Eyes: Reports: No symptoms Ears, Nose, Mouth, Throat: Reports: No symptoms Respiratory: Reports: No symptoms Cardiac: Reports: No symptoms GI: Reports: Nausea, Vomiting : Reports: No symptoms Musculoskeletal: Reports: No symptoms Skin: Reports: No symptoms Neurological: Reports: No symptoms Endocrine: Reports: No symptoms Hematologic/Lymphatic: Reports: No symptoms All Other Systems: Reviewed and Negative Past Medical History - Past Medical History Previously Healthy: No Endocrine: Reports: DM 2 Cardiovascular: Reports: CAD, OR, Hypertension Respiratory: Reports: COPD Hematological: Reports: None Gastrointestinal: Reports: GERD Genitourinary: Reports: None Neuro/Psych: Reports: None Musculoskeletal: Reports: Arthritis Cancer: Reports: None Last Menstrual Period: n/a Other Pertinent Past Medical History: GALLBLADDER REMOVAL, APPENDECTOMY, HYSTERECTOMY - Surgical History General Surgical History: Reports: Hysterectomy, Appendectomy, Cholecystectomy - Family History Family History: Reports: Unknown - Social History Smoking Status: Former smoker Hx Substance Use: No Alcohol Screening: Occasionally Lives: With family - Immunizations Influenza Vaccine within 12 Months: No Pneumococcal Vaccine up to Date: No Physical Exam - Physical Exam Appearance: Well-appearing Eyes: MELISSA, EOMI, Conjunctiva clear ENT: Ears normal, Nose normal, Oropharynx normal Neck: Supple Respiratory: Airway patent, Breath sounds clear, Breath sounds equal, Respirations nonlabored Cardiovascular: RRR, Pulses normal, No rub, No murmur GI/: Soft, Nontender, No masses, Bowel sounds normal, No Organomegaly Musculoskeletal: Normal strength, ROM intact, No edema, No calf tenderness Skin: Warm Neurological: Sensation intact Psychiatric: Affect appropriate, Mood appropriate Interpretation - Radiology Interpretation Radiology Interpretation By: Radiologist Radiology Results: Positive Exam Interpreted: CT Scan Physician Notification - Case Discussed Physician Notified: dr he Time of Notification: 21:01 Critical Care Note - Critical Care Note Total Time (mins): 0 Course - Course Hematology/Chemistry: 07/15/17 20:20 07/15/17 20:20 Orders, Labs, Meds: Lab Review 07/15/17 07/15/17 07/15/17 20:00 20:08 20:08 WBC RBC Hgb Hct MCV MCH MCHC RDW Coeff of Balwinder Plt Count Neutrophils % (Manual) Lymphocytes % (Manual) Monocytes % (Manual) Eosinophils % (Manual) Anisocytosis ESR Puncture Site Lb O2 Saturation 96.0 ABG pH 7.374 ABG pCO2 39.7 ABG pO2 84.0 L ABG HCO3 23.2 ABG Total CO2 24 ABG Base Excess -2 Aniket Test + FiO2 % 21.0 Sodium Potassium Chloride Carbon Dioxide Anion Gap BUN Creatinine Estimated GFR (MDRD) BUN/Creatinine Ratio Glucose Calcium Total Bilirubin AST ALT Alkaline Phosphatase Total Protein Albumin Globulin Albumin/Globulin Ratio Amylase Lipase Urine Color Yellow Urine Clarity Cloudy Urine pH 5.0 Ur Specific [place] <=1.005 Urine Protein Negative Urine Glucose (UA) 2+ Urine Ketones Negative Urine Blood 3+ Urine Nitrite Negative Urine Bilirubin Negative Urine Urobilinogen 0.2 Ur Leukocyte Esterase Trace Urine Microscopic RBC 30-50 Urine Microscopic WBC 5-10 Ur Squamous Epith Cells Not present Influenza A (Rapid) Negative Influenza B (Rapid) Negative 07/15/17 07/15/17 20:20 20:20 WBC 8.07 RBC 4.68 Hgb 13.9 Hct 40.6 MCV 86.8 MCH 29.7 MCHC 34.2 RDW Coeff of Balwinder 11.8 Plt Count 296 Neutrophils % (Manual) 70.0 Lymphocytes % (Manual) 22.0 Monocytes % (Manual) 7.0 Eosinophils % (Manual) 1.0 Anisocytosis Not present ESR 38 H Puncture Site O2 Saturation ABG pH ABG pCO2 ABG pO2 ABG HCO3 ABG Total CO2 ABG Base Excess Aniket Test FiO2 % Sodium 137 Potassium 3.9 Chloride 101 Carbon Dioxide 24 Anion Gap 15.9 BUN 15 Creatinine 1.13 Estimated GFR (MDRD) 49.00 BUN/Creatinine Ratio 13.27 Glucose 571 H* Calcium 9.3 Total Bilirubin 0.97 AST 14 L ALT 15 Alkaline Phosphatase 130 H Total Protein 7.0 Albumin 3.0 L Globulin 4.0 Albumin/Globulin Ratio 0.75 Amylase 34 Lipase 30 Urine Color Urine Clarity Urine pH Ur Specific [place] Urine Protein Urine Glucose (UA) Urine Ketones Urine Blood Urine Nitrite Urine Bilirubin Urine Urobilinogen Ur Leukocyte Esterase Urine Microscopic RBC Urine Microscopic WBC Ur Squamous Epith Cells Influenza A (Rapid) Influenza B (Rapid) Orders Category Date Time Status ABG DRAW REQUEST Stat CARDIO 07/15/17 20:00 Completed EKG-(ED ONLY) Stat CARDIO 07/15/17 20:00 Completed ACCUCHECK (ED) [ED ACCUCHECK ASSESSMENT] .ONCE EMERGENCY 07/15/17 20:05 Active IV [ED IV/MEDIPORT/POWERPORT] .ONCE EMERGENCY 07/15/17 20:00 Active ABG Stat LAB 07/15/17 20:00 Completed AMYLASE Stat LAB 07/15/17 20:20 Completed BLOOD CULTURE (ED ONLY) Stat LAB 07/15/17 20:20 Received CBC W/ AUTO DIFF Stat LAB 07/15/17 20:20 Completed COMPREHENSIVE METABOLIC PANEL Stat LAB 07/15/17 20:20 Completed ESR Stat LAB 07/15/17 20:20 Completed LIPASE Stat LAB 07/15/17 20:20 Completed MANUAL DIFFERENTIAL Stat LAB 07/15/17 20:20 Completed MOLECULAR GROUP A STREP Stat LAB 07/15/17 20:08 Results RAPID FLU A/B Stat LAB 07/15/17 20:08 Completed STREP SCREEN Stat LAB 07/15/17 20:08 Results URINALYSIS C & S IF INDICATED Stat LAB 07/15/17 20:08 Completed URINE CULTURE Stat LAB 07/15/17 20:29 Received 0.9 % Sodium Chloride [Saline Flush] MEDS 07/15/17 20:00 Ordered 1 syr IVF PRN PRN Ondansetron HCl/Pf [Zofran 4 mg/2 ml] MEDS 07/15/17 20:07 Discontinued 4 mg IVP ONCE STA Sodium Chloride 0.9% [Sodium Chloride] 1,000 ml MEDS 07/15/17 20:01 Active IV 100 mls/hr CT ABDOMEN/PELVIS WO CONTRAST Stat RADS 07/15/17 20:06 Completed CXR [CHEST, 2 VIEWS PA & LAT] Stat RADS 07/15/17 20:05 Taken Medications Generic Name Dose Route Start Last Admin Trade Name Freq PRN Reason Stop Dose Admin Sodium Chloride 1,000 mls @ 100 mls/hr 07/15/17 20:01 07/15/17 20:24 Sodium Chloride IV 07/16/17 06:00 100 mls/hr .Q10H STA Administration Sodium Chloride 1 syr 07/15/17 20:00 07/15/17 20:32 Saline Flush IVF 1 syr PRN PRN Administration To flush IV Discontinued Medications Generic Name Dose Route Start Last Admin Trade Name Freq PRN Reason Stop Dose Admin Ondansetron HCl 4 mg 07/15/17 20:07 07/15/17 20:26 Zofran 4 Mg/2 Ml IVP 07/15/17 20:08 4 mg ONCE STA Administration Vital Signs: Temp Pulse Resp BP Pulse Ox 07/15/17 20:00 98.6 F 80 16 144/79 H 96 Departure - Departure Time of Disposition: 21:01 Disposition: ADMITTED INPATIENT Discharge Problem: Pyelonephritis, acute Diabetes type 2, uncontrolled Qualifiers: Diabetes mellitus complication status: without complication 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 Qualified Code(s): E11.65 - Type 2 diabetes mellitus with hyperglycemia Instructions: Urinary Tract Infection in Women (ED) Condition: Good Pt referred to PMD for follow-up: Yes Allergies/Adverse Reactions: Allergies iodine Adverse Reaction (Verified 07/15/17 20:02) Home Medications: Ambulatory Orders Glipizide [Glucotrol] 10 mg PO BID #60 tablet 01/02/15 Omeprazole [Prilosec] 20 mg PO DAILY #30 01/02/15 Nitroglycerin 0.4 mg SL PRN 05/25/15 Multivitamin [Multi-Vitamin Daily] 1 each PO DAILY 01/25/17 Aspirin 81 mg PO d 02/14/17 Cyanocobalamin (Vitamin B-12) [Liquid B-12] 5,000 mcg PO d 02/14/17 Metoprolol Succinate 75 mg PO d 02/14/17 Disposition Discussed With: Patient
[2017-07-15 20:25] LABS: HEMATOCRIT 40.6 % (37.0-47.0); HEMOGLOBIN 13.9 g/dl (12.0-16.0); MEAN CORPUSCULAR HEMOGLOBIN 29.7 pg (27.0-31.0); MEAN CORPUSCULAR HGB CONC 34.2 (31.8-35.4); MEAN CORPUSCULAR VOLUME 86.8 fl (81.0-99.0); PLATELET COUNT 296 10^3/uL (140-440); RED BLOOD COUNT 4.68 10^6/ul (4.20-5.40); WHITE BLOOD COUNT 8.07 K/ul (4.6-10.2)
[2017-07-15 20:25] LABS: ADD URINE MICROSCOPIC YES
[2017-07-15 20:29] LABS: ANISOCYTOSIS NOT PRESENT (NOT PRESENT)
[2017-07-15 20:34] LABS: ABG BASE EXCESS -2 (-2.0-2.0); ABG PCO2 39.7 mmHg (35-45); ABG PH 7.374 (7.35-7.45)
[2017-07-15 20:35] LABS: ABG HCO3 23.2 (22.0-26.0); ABG TCO2 24 (22.0-28.0)
[2017-07-15 20:38] LABS: FLU INTERNAL QC INTERNAL QC VALID; RAPID FLU A NEGATIVE (NEGATIVE); RAPID FLU B NEGATIVE (NEGATIVE)
[2017-07-15 20:42] LABS: ALBUMIN/GLOBULIN RATIO 0.75; ANION GAP 15.9; BILIRUBIN,TOTAL 0.97 mg/dL (0.00-1.20); BUN/CREATININE RATIO 13.27; CALCIUM 9.3 mg/dL (8.2-10.2); CREATININE 1.13 mg/dL (0.60-1.30); POTASSIUM 3.9 mmol/L (3.5-5.10)
--- NOTE | 2017-07-15 20:51 | CT ---
EXAM: CT scan of the abdomen and pelvis without contrast HISTORY: Vomiting TECHNIQUE: Imaging of the abdomen and pelvis was performed without contrast. 3 mm thin axial images and coronal and sagittal reconstructions were provided for interpretation. Comparison to 05/09/2017 CT scan of the abdomen and pelvis. FINDINGS: The patient has had previous cholecystectomy. The liver, spleen, pancreas, adrenal glands appear within normal limits. The proximal ureters are normal size. Inflammatory changes are seen s urrounding the right kidney. There is no evidence of ureteral calculi. The small and large bowel lo ops are normal caliber. No acute abnormalities are seen within the anterior abdominal wall. The appe ndix was not seen. No definite inflammatory changes are seen in the right lower quadrant. There is s carring seen within the left kidney lower pole. The helical images obtained through the pelvis demonstrate a normal appearance of the rectum, urinary bladder. There is no free fluid seen within the pelvis. Scattered diverticula are seen within the sigmoid colon without acute inflammation. Lung bases are clear. No lytic or blastic lesions are seen within the osseous structures. IMPRESSION: No evidence for small bowel obstruction. Inflammatory changes are seen surrounding the right ureter suspicious for an ascending urinary tract infection on the right. No definite ureteral calculi are seen. Pyelonephritis of the right kidney ca nnot be excluded. The evaluation was limited without intravenous contrast.
[2017-07-15 20:54] LABS: ERYTHROCYTE SEDIMENTATION RATE 38 mm/hr (0-20); ESR INTERNAL QC INTERNAL QC VALID
[2017-07-15] MEDS ORDERED: NON-FORMULARY MEDICATION (Hydroxyzine Hcl [Hydroxyzine Hcl] 50 MG) PO PRN ×22 (21:05)
[2017-07-15] MEDS ORDERED: ZOFRAN 4 MG/2 ML IVP PRN (21:05)
[2017-07-15] MEDS ORDERED: HUMULIN R IVP STA (21:16)
[2017-07-15] MEDS ORDERED: TOPROL XL PO SCH (21:30)
[2017-07-15] MEDS ORDERED: NITROSTAT SL SCH (21:30)
[2017-07-15] MEDS: SODIUM CHLORIDE 1,000 ML IV SCH (22:30)
[2017-07-15] MEDS ORDERED: LEVAQUIN 500 MG in PREMIX 100 ML D5W 1 BAG IV STA (23:50)
[2017-07-15] MEDS ORDERED: TYLENOL ONE (23:53)
[2017-07-15] MEDS ORDERED: LEVAQUIN 100 ML IV ONE (23:53)
[2017-07-15] MEDS ORDERED: TYLENOL PO STA (23:54)
[2017-07-16 05:28] LABS: BASOPHILS % (AUTO) 0.5 % (0.0-3.0); EOSINOPHILS # (AUTO) 0.1 K/ul (0.0-0.7); EOSINOPHILS % (AUTO) 1.8 % (0.0-7.0); HEMATOCRIT 34.8 % (37.0-47.0); HEMOGLOBIN 12.1 g/dl (12.0-16.0); IMMATURE GRANULOCYTE % (AUTO) 0.5 % (0.0-5.0); LYMPHOCYTES # (AUTO) 2.1 K/uL (0.60-3.4); MEAN CORPUSCULAR HGB CONC 34.8 (31.8-35.4); MEAN CORPUSCULAR VOLUME 86.4 fl (81.0-99.0); MONOCYTES # (AUTO) 0.6 K/uL (0.4-2.0); MONOCYTES % (AUTO) 8.6 (0-10); NEUTROPHILS # (AUTO) 4.3 K/ul (2.0-6.9); NEUTROPHILS % (AUTO) 59.6; PLATELET COUNT 240 10^3/uL (140-440); RED BLOOD COUNT 4.03 10^6/ul (4.20-5.40)
[2017-07-16 05:53] LABS: ALBUMIN 2.5 g/dL (3.4-5.0); ALBUMIN/GLOBULIN RATIO 0.76; ANION GAP 10.8; BILIRUBIN,TOTAL 1.06 mg/dL (0.00-1.20); CALCIUM 8.7 mg/dL (8.2-10.2); CREATININE 0.75 mg/dL (0.60-1.30); POTASSIUM 3.8 mmol/L (3.5-5.10); TOTAL PROTEIN 5.8 g/dL (6.4-8.2)
[2017-07-16] MEDS: HUMULIN R SUBCUT PRN ×4 (06:40→20:55)
[2017-07-16] MEDS ORDERED: ATARAX PO PRN (07:30)
--- NOTE | 2017-07-16 07:30 | DI ---
EXAM: Chest two view, frontal and lateral views. HISTORY: Cough. COMPARISON: 05/09/2017, 12/30/2012. FINDINGS: The heart size is normal. Coronary artery stent is present. There is no pulmonary vascul ar congestion. The lungs are clear. No pleural effusion or pneumothorax is seen. No acute osseous abnormality identified. Old bilateral rib fractures noted. Since the prior study, there has been no significant interval change. IMPRESSION: No acute cardiopulmonary process.
[2017-07-16] MEDS: LOVENOX SUBCUT SCH (08:49)
[2017-07-16] MEDS: PROZAC PO SCH (08:49)
[2017-07-16] MEDS: TOPROL XL PO SCH ×2 (08:49→08:50)
[2017-07-16] MEDS: LIPITOR PO SCH (08:49)
[2017-07-16] MEDS: ZESTRIL PO SCH (08:49)
[2017-07-16] MEDS: ASPIRIN CHEWABLE PO SCH (08:49)
[2017-07-16] MEDS: PRILOSEC PO SCH (08:50)
[2017-07-16] MEDS: LEVAQUIN 500 MG in PREMIX 100 ML D5W 1 BAG IV SCH (08:50)
[2017-07-16] MEDS: TRADJENTA PO SCH (08:50)
[2017-07-16] MEDS ORDERED: NON-FORMULARY MEDICATION (Omeprazole [Prilosec] 20 MG) PO SCH ×22 (09:00)
[2017-07-16] MEDS ORDERED: NON-FORMULARY MEDICATION (Lisinopril [Zestril] 20 MG) PO SCH ×22 (09:00)
[2017-07-16] MEDS ORDERED: TYLENOL PO PRN (10:38)
[2017-07-16] MEDS: SODIUM CHLORIDE 1,000 ML IV SCH (11:54)
[2017-07-16] MEDS: TYLENOL PO PRN (15:46)
[2017-07-17] MEDS: SODIUM CHLORIDE 1,000 ML IV SCH (00:20)
[2017-07-17] MEDS: HUMULIN R SUBCUT PRN ×4 (05:49→20:38)
[2017-07-17] MEDS: PRILOSEC PO SCH (05:49)
[2017-07-17 06:11] LABS: BASOPHILS % (AUTO) 0.5 % (0.0-3.0); EOSINOPHILS # (AUTO) 0.1 K/ul (0.0-0.7); EOSINOPHILS % (AUTO) 1.6 % (0.0-7.0); HEMATOCRIT 37.5 % (37.0-47.0); HEMOGLOBIN 12.7 g/dl (12.0-16.0); IMMATURE GRANULOCYTE % (AUTO) 0.7 % (0.0-5.0); LYMPHOCYTES # (AUTO) 1.7 K/uL (0.60-3.4); LYMPHOCYTES % (AUTO) 31.1 (10.0-50.0); MEAN CORPUSCULAR HEMOGLOBIN 29.4 pg (27.0-31.0); MEAN CORPUSCULAR HGB CONC 33.9 (31.8-35.4); MEAN CORPUSCULAR VOLUME 86.8 fl (81.0-99.0); MONOCYTES # (AUTO) 0.4 K/uL (0.4-2.0); MONOCYTES % (AUTO) 7.3 (0-10); NEUTROPHILS # (AUTO) 3.2 K/ul (2.0-6.9); NEUTROPHILS % (AUTO) 58.8; PLATELET COUNT 262 10^3/uL (140-440); RED BLOOD COUNT 4.32 10^6/ul (4.20-5.40); WHITE BLOOD COUNT 5.46 K/ul (4.6-10.2)
[2017-07-17 06:39] LABS: ALBUMIN 2.4 g/dL (3.4-5.0); ALBUMIN/GLOBULIN RATIO 0.75; ANION GAP 10.9; BILIRUBIN,TOTAL 0.96 mg/dL (0.00-1.20); BUN/CREATININE RATIO 16.21; CALCIUM 8.8 mg/dL (8.2-10.2); CREATININE 0.74 mg/dL (0.60-1.30); POTASSIUM 3.9 mmol/L (3.5-5.10); TOTAL PROTEIN 5.6 g/dL (6.4-8.2)
[2017-07-17] MEDS: LOVENOX SUBCUT SCH (09:41)
[2017-07-17] MEDS: ASPIRIN CHEWABLE PO SCH (09:41)
[2017-07-17] MEDS: TRADJENTA PO SCH (09:41)
[2017-07-17] MEDS: LEVAQUIN 500 MG in PREMIX 100 ML D5W 1 BAG IV SCH (09:41)
[2017-07-17] MEDS: PROZAC PO SCH (09:42)
[2017-07-17] MEDS: LIPITOR PO SCH (09:42)
[2017-07-17] MEDS: TOPROL XL PO SCH ×2 (09:42)
[2017-07-17] MEDS: ZESTRIL PO SCH (09:42)
[2017-07-17] MEDS: JARDIANCE 10 MG PO SCH (10:16)
[2017-07-17] MEDS: TYLENOL PO PRN (20:38)
[2017-07-18] MEDS: SODIUM CHLORIDE 1,000 ML IV SCH (03:40)
[2017-07-18] MEDS: TYLENOL PO PRN (04:21)
[2017-07-18 05:21] VITALS: BP 151/76; TEMP 97.9
[2017-07-18 05:34] LABS: BASOPHILS % (AUTO) 0.8 % (0.0-3.0); EOSINOPHILS # (AUTO) 0.1 K/ul (0.0-0.7); EOSINOPHILS % (AUTO) 2.1 % (0.0-7.0); HEMATOCRIT 34.5 % (37.0-47.0); HEMOGLOBIN 12.3 g/dl (12.0-16.0); IMMATURE GRANULOCYTE % (AUTO) 0.8 % (0.0-5.0); LYMPHOCYTES # (AUTO) 1.9 K/uL (0.60-3.4); LYMPHOCYTES % (AUTO) 36.1 (10.0-50.0); MEAN CORPUSCULAR HEMOGLOBIN 30.4 pg (27.0-31.0); MEAN CORPUSCULAR HGB CONC 35.7 (31.8-35.4); MEAN CORPUSCULAR VOLUME 85.2 fl (81.0-99.0); MONOCYTES # (AUTO) 0.4 K/uL (0.4-2.0); NEUTROPHILS # (AUTO) 2.8 K/ul (2.0-6.9); NEUTROPHILS % (AUTO) 52.2; PLATELET COUNT 276 10^3/uL (140-440); RED BLOOD COUNT 4.05 10^6/ul (4.20-5.40); WHITE BLOOD COUNT 5.27 K/ul (4.6-10.2)
[2017-07-18] MEDS: HUMULIN R SUBCUT PRN (05:47)
[2017-07-18] MEDS: PRILOSEC PO SCH (05:47)
[2017-07-18 06:03] LABS: ALBUMIN 2.5 g/dL (3.4-5.0); ALBUMIN/GLOBULIN RATIO 0.76; ANION GAP 9.6; BILIRUBIN,TOTAL 0.57 mg/dL (0.00-1.20); CALCIUM 8.9 mg/dL (8.2-10.2); CREATININE 0.75 mg/dL (0.60-1.30); POTASSIUM 3.6 mmol/L (3.5-5.10); TOTAL PROTEIN 5.8 g/dL (6.4-8.2)
--- NOTE | 2017-07-18 07:13 | HP ---
DATE OF SERVICE: 07/15/17 CHIEF COMPLAINT: Elevated sugar and burning on urination HISTORY OF PRESENT ILLNESS: This is a 56-year-old female who has a history of diabetes. Her sugars have been running high and the machine is showing high. Also having burning on urination with frequency and foul smelling urine, nasal drainage, coughing, some congestion, body aches, feeling feverish with chills. She came to the emergency room and seen by Dr. Mao in the emergency room. Labs showed white count 8, ESR 38, ABGs: p02 84, blood sugar 571. AST/ALT was normal. Urine was positive for leukocyte esterase trace and blood 3+. Serology negative. CT of abdomen and pelvis was done which showed inflammatory changes surrounding the right ureter suspicious for an ascending urinary tract infection on the right, pylenonephritis of the right kidney cannot be excluded. The patient was also having some back pain and flank pain. At that time, the patient was admitted to the hospital with uncontrolled diabetes and right-sided pyelonephritis for IV antibiotics and control of sugars. REVIEW OF SYSTEMS: CONSTITUTIONAL: Feverish feeling. HEENT: Sinus congestion. ENDOCRINE: No weight gain; no weight loss. Elevated blood sugar. CVS: No chest pain. No PND, no orthopnea. No shortness of breath. No PND, no orthopnea. RESPIRATORY: Cough and congestion. No hemoptysis. GI: No nausea, no vomiting. No abdominal pain. No melena. : Burning and frequency of urination. Foul smelling urine. MUSCULOSKELETAL: Body aches. PSYCHIATRIC: Not anxious. No depression. No suicidal thoughts. No homicidal thoughts. SKIN: Intact, no open lesions. PAST MEDICAL HISTORY: Coronary artery disease 05/18/15 Status post stent Diabetes mellitus Hypertension Dyslipidemia Sleep apnea Headaches GERD Depression Sleep apnea PAST SURGICAL HISTORY: Hysterectomy PERSONAL HISTORY: Does not smoke now quitting January 2017. FAMILY HISTORY: Heart problems MEDICATIONS: (HOME) Glucotrol Prilosec Nitroglycerin Glucophage Hydroxyzine Tradgenta Multivitamin Metoprolol Aspirin Vitamin B12 Lisinopril Atorvastatin Fluoxetine ALLERGIES: IODINE PHYSICAL EXAMINATION: V/S: BP 144/79, respiratory rate 16, heart rate 80, temperature 98.6, saturation 96. GENERAL: Sick looking lady lying in bed not in any distress. HEENT: Atraumatic, normocephalic. No scleral icterus. Pallor positive. Mucosa dry. NECK: Supple. No JVD, no bruit. No lymphadenopathy. No thyromegaly. HEART: S1, S2 normal. No murmur. No cyanosis or clubbing. No ascites. LUNGS: Clear to auscultation. No rales or rhonchi. ABDOMEN: Soft, nontender. Bowel sounds are active. No CVA tenderness. No rigidity or guarding. EXTREMITIES: No cyanosis, clubbing or pedal edema. MUSCULOSKELETAL: Right lower back pain and flank pain, paraspinal tenderness is present. Warm to touch. NEUROLOGIC: The patient is awake, alert and oriented times three. SKIN: Intact; no open lesions. LYMPHATIC: No lymph nodes palpable. LABS: White count 8.07, hemoglobin 13.9, hematocrit 40.6, platelet count 296. Sodium 137, potassium 3.9, chloride 101, bicarb 24, BUN 15, creatinine 1.13, glucose 551. Alkaline phosphatase 130. Urine - blood positive. Leukocyste esterase is trace. CT scan showed right-sided acute pyelonephritis. ASSESSMENT: 1. UNCONTROLLED DIABETES WITH ELEVATED BLOOD SUGARS 2. UTI WITH PYELONEPHRITIS PER CT SCAN 3. HISTORY OF DIABETES 4. CORONARY ARTERY DISEASE STATUS POST STENT 5. HYPERTENSION 6. DYSLIPIDEMIA 7. DEPRESSION PLAN: 1. Admit the patient to the regular floor 2. CBC, CMP today and daily 3. Cardiac enzymes and troponins 4. IV fluids 5. Accu-Cheks with coverage 6. Tylenol for fever 7. Lovenox for DVT prophylaxis 8. Levaquin 9. Accu-Cheks with coverage 10. Continue home medications 11. Diabetic diet TIME SPENT: MORE THAN 70 minutes MTDD
[2017-07-18] MEDS: LEVAQUIN 500 MG in PREMIX 100 ML D5W 1 BAG IV SCH (08:55)
[2017-07-18] MEDS: ZESTRIL PO SCH (08:55)
[2017-07-18] MEDS: TOPROL XL PO SCH ×2 (08:55)
[2017-07-18] MEDS: ASPIRIN CHEWABLE PO SCH (08:55)
[2017-07-18] MEDS: TRADJENTA PO SCH (08:55)
[2017-07-18] MEDS: LOVENOX SUBCUT SCH (08:55)
[2017-07-18] MEDS: LIPITOR PO SCH (08:55)
[2017-07-18] MEDS: PROZAC PO SCH (08:55)
[2017-07-18] MEDS: JARDIANCE 10 MG PO SCH (08:55)
--- NOTE | 2017-07-18 10:59 | PN ---
DATE OF SERVICE: 07/16/17 SUBJECTIVE: The patient was admitted with hyperglycemia, uncontrolled diabetes and sugars in the morning 266. Still having the flank pain. REVIEW OF SYSTEMS: CONSTITUTIONAL: No fever, no chills. HEENT: Normal. ENDOCRINE: No weight gain, no weight loss. CVS: No angina symptoms. No CHF symptoms. No palpitations. No atypical chest pain for CAD. No shortness of breath. No PND, no orthopnea. RESPIRATORY: No cough, no hemoptysis. GI: No nausea, no vomiting. No abdominal pain. : No hematuria. No polyuria. MUSCULOSKELETAL:. No joint swelling. PSYCHIATRIC: Not anxious. No depression. No suicidal thoughts. No homicidal thoughts. SKIN: Intact. No rash. PHYSICAL EXAMINATION: V/S: blood pressure 144/78, temperature 97.9, saturation 97%, heart rate 60. HEENT: Normocephalic, atraumatic. Mucosa dry. Pallor positive. No icterus. NECK: Supple. No JVD, no carotid bruit. No lymphadenopathy. LUNGS: Clear to auscultation. No rales or rhonchi. HEART: S1, S2 normal. No S3. No murmur, gallop or regurgitation. ABDOMEN: Soft, nontender. Bowel sounds active. No rigidity. No rebound or guarding. No CVA tenderness. Right sided flank pain and left sided flank pain is present. EXTREMITIES: No clubbing, cyanosis or pedal edema. MUSCULOSKELETAL: No joint swelling. NEUROLOGIC: Awake, alert, oriented times three. No focal deficit. LYMPHATIC: No lymph nodes palpable. SKIN: Intact. LABS: Sodium 138, potassium 3.8, chloride 102, bicarb 28, BUN 12, creatinine 0.75, glucose 266. WBC 4.03, hgb 12.1, hct 34.8, plt count 240. ASSESSMENT: 1. Acute right sided pyelonephritis 2. Uncontrolled diabetes 3. Coronary artery disease status post stent 4. Hypertension 5. Dyslipidemia 6. Sleep apnea 7. Depression PLAN: 1. Continue the Levaquin 2. IV fluids 3. Accu-check with coverage 4. Will check the HPA1c TIME SPENT: More than 35 minutes MTDD
--- NOTE | 2017-08-24 16:37 | PN ---
DATE OF SERVICE: 07/17/17 SUBJECTIVE: The patient is admitted with uncontrolled diabetes, pyelonephritis. No fever. Sugars were still elevated. The patient refuses to take insulin so we stopped the Glipizide in view of hypoglycemia episodes in the past, started Jardiance, samples given from office along with Glucophage. We did explain that this dosage is not enough and the patient has to be on more medication. The patient again clearly said that she doesn't want to use insulin. REVIEW OF SYSTEMS: CONSTITUTIONAL: No fever, no chills. HEENT: Normal. ENDOCRINE: No weight gain, no weight loss. CVS: No angina symptoms. No CHF symptoms. No palpitations. No atypical chest pain for CAD. No shortness of breath. No PND, no orthopnea. RESPIRATORY: No cough, no hemoptysis. GI: No nausea, no vomiting. No abdominal pain. : No hematuria. No polyuria. MUSCULOSKELETAL:. No joint swelling. PSYCHIATRIC: Not anxious. No depression. No suicidal thoughts. No homicidal thoughts. SKIN: Intact. No rash. PHYSICAL EXAMINATION: V/S: BP 158/83, respiratory rate 18, heart rate 66, temperature 98. HEENT: Normocephalic, atraumatic. Mucosa dry, pallor positive. No icterus. NECK: Supple. No JVD, no carotid bruit. No lymphadenopathy. LUNGS: Clear to auscultation. No rales or rhonchi. HEART: S1, S2 normal. No S3. No murmur, gallop or regurgitation. ABDOMEN: Soft, nontender. Bowel sounds active. No rigidity. No rebound or guarding. Left-sided CVA tenderness is positive. EXTREMITIES: No clubbing, cyanosis or pedal edema. MUSCULOSKELETAL: No joint swelling. NEUROLOGIC: Awake, alert, oriented times three. No focal deficit. LYMPHATIC: No lymph nodes palpable. SKIN: Intact. LABS: Sodium 140, potassium 3.9, chloride 105, bicarb 28, BUN 12, creatinine 0.74, glucose 213. White count 5.46, hemoglobin 12.7, hematocrit 37.5, platelet count 262. ASSESSMENT: 1. PYELONEPHRITIS 2. UNCONTROLLED DIABETES 3. HYPERTENSION 4. OBESITY 5. DYSLIPIDEMIA 6. SLEEP APNEA 7. HISTORY OF HEADACHES 8. CAD STATUS POST STENT 9. DEPRESSION PLAN: 1. Jardiance 10 mg p.o. daily 2. Glucophage 1000 mg twice a day 3. Accu-Cheks with coverage 4. Out of bed to chair 5. Activity as tolerated 6. Hypoglycemia discussed. TIME SPENT: More than 35 minutes MTDD
--- NOTE | 2017-08-24 16:56 | DS ---
DATE OF SERVICE: 07/18/17 FINAL DIAGNOSIS: 1. ACUTE PYELONEPHRITIS 2. DIABETES MELLITUS, UNCONTROLLED 3. HYPERTENSION 4. DYSLIPIDEMIA 5. METABOLIC SYNDROME 6. OBESITY 7. CAD STATUS POST STENTING 8. HISTORY OF HEADACHES 9. DEPRESSION DISCHARGE INSTRUCTIONS: Discharge the patient home. Followup appointment: Return to [facility] to see Dr. Carvalho on 07/25/17 at 9:30 a.m. MEDICATIONS AT DISCHARGE: Aspirin Atorvastatin B12 Prozac Prilosec NEW PRESCRIPTIONS: Jardiance 10 mg p.o. daily Levaquin 500 mg twice daily for four days Humulin R as per sliding scale Accu-Cheks a.c. and h.s. Glucophage 1000 mg twice a day Stop Glucotrol DIET INSTRUCTIONS: 1800 ADA diet ACTIVITY: As much as tolerated SMOKING: Former smoker DISEASE SPECIFIC EDUCATION: Diabetes DKA Hyperosmolar/hyperglycemia Urinary tract infection Increasing hydration discussed All the above discussed and patient verbalized understanding HOSPITAL COURSE: This is a 56-year-old female with a history of diabetes, poorly controlled with A1C of 10.1 came to the emergency room with burning, frequency of urination and flank pain. CT of abdomen and pelvis done which showed pyelonephritis. White count was normal. Sugars were 571, ABGs done which was not acidotic. Serology acetones were negative. Influenza was negative. Ketones were negative in the urine. At that time, the patient was admitted to the hospital, started on IV fluids and antibiotic, Levaquin. Accu-Cheks were done with coverage. Urine did grow E. coli due to Levaquin. Gradually patient was feeling better from pain, burning and frequency of urination. Sugars were persistently high, 266, 213, 170. The patient was covered with Accu-Cheks and coverage. Glipizide was discontinued as the patient had history of hypoglycemic episodes, started on Jardiance 10 mg along with Glucophage 1000 twice a day. The patient refused again to take insulin. Advised that if she can take temporary insulin for one week so that meanwhile we can add more medication, verbalized understanding as the patient was up and about walking, did not have any complications, patient was discharged home. TIME SPENT: MORE THAN 55 MINUTES MTDD
== END 2017-07-18 11:00 | disposition home or self-care (01) | DRG 690 ==
LOC: ED 19:59 → MEDSURG B 21:17
PROVIDERS: ADMIT Emergency Medicine; ATTEND Emergency Medicine
DX: N10 Acute pyelonephritis (principal); E11.65 Type 2 diabetes mellitus with hyperglycemia; I10 Essential (primary) hypertension; R10.9 Unspecified abdominal pain; I25.2 Old myocardial infarction; E78.5 Hyperlipidemia, unspecified; E88.81 Metabolic syndrome and other insulin resistance; E66.9 Obesity, unspecified; I25.10 Atherosclerotic heart disease of native coronary artery without angina pectoris; F32.9 Major depressive disorder, single episode, unspecified; G47.30 Sleep apnea, unspecified; R11.10 Vomiting, unspecified; Z95.5 Presence of coronary angioplasty implant and graft; Z86.69 Personal history of other diseases of the nervous system and sense organs; Z79.899 Other long term (current) drug therapy
CPT/HCPCS: 36415; 80053; 81001; 82150; 82803; 82962; 83036; 83690; 85007; 85025; 85651; 87040; 87086; 87186; 87651; 87804; 87880; 93005; 93010; 96374; 96375; 99284

== ENCOUNTER 2017-11-03 20:09 | Emergency (ER) ==
[2017-11-03 20:13] VITALS: BP 131/54; TEMP 98.1; BMI 34.7
[2017-11-03] MEDS ORDERED: SODIUM CHLORIDE 1,000 ML IV STA (21:19)
[2017-11-03] MEDS ORDERED: ANCEF 1 GM in SODIUM CHLORIDE 100 ML IV STA (21:19)
[2017-11-03] MEDS ORDERED: HUMALOG SUBCUT STA (21:59)
[2017-11-03] MEDS ORDERED: BACTRIM DS 800/160 MG PO STA (22:00)
--- NOTE | 2017-11-03 22:01 | ED.PDOC ---
General ED Provider: Dr. FENG MILLAN Chief Complaint: Abscess Stated Complaint: Patient states she has an abscess on he left buttock. The states that by the way her blood glucose has been elevated at 600 and has not been able to bring it down. She states that she could not afford to get her other diabetic medication. state she has had some mild chest pain this morning. Time Seen by Physician: 21:00 Mode of Arrival: Walk-In Information Source: Patient Exam Limitations: No limitations Primary Care Provider: SERA [facility] Nursing and Triage Documentation Reviewed and Agree: Yes Reviewed sepsis parameters & appropriate labs ordered?: Yes System Inflammatory Response Syndrome: Not Applicable Sepsis Protocol: For patient's 13 years and over: Temp is 96.8 and below OR 101 and greater Pulse >90 BPM Resp >20/minute Acutely Altered Mental Status Are patient's symptoms suggestive of a new infection, such as: -Pneumonia -Skin, Soft Tissue -Endocarditis -UTI -Bone, Joint Infection -Implantable Device -Acute Abdominal Infection -Wound Infection -Meningitis -Blood Stream Catheter Infection -Unknown System Inflammatory Response Syndrome: Not Applicable Skin Complaint Exam - Skin/Soft Tissue Complaint/Exam Onset/Duration: 3 days Symptoms Are: Still present Timing: Constant Initial Severity: Moderate Current Severity: Moderate Location: Left Buttock Character: Reports: Redness, Painful. Denies: Swelling (flat and not flactuate ), Raised Aggravating: Reports: None Alleviating: Reports: None Associated Signs and Symptoms: Reports: Drainage (minimal ), Tenderness. Denies : Fever, Chills, Itching, Bruising, Red streaks, Joint swelling Related History: Denies: Recent travel Related Surgical History: Reports: None Recent Exposure to Others w/Similar Symptoms: No Skin Findings: Present: Erythema, Induration. Absent: Fluctuant mass Joint Tenderness Present: No Differential Diagnoses: Abscess, Cellulitis Review of Systems - Review Of Systems Constitutional: Reports: No symptoms Eyes: Reports: No symptoms Ears, Nose, Mouth, Throat: Reports: No symptoms Respiratory: Reports: No symptoms Cardiac: Reports: Chest pain (mild chest pain this morning none right now. ) GI: Reports: No symptoms : Reports: No symptoms Musculoskeletal: Reports: No symptoms Skin: Reports: Rash Neurological: Reports: Anxiety Endocrine: Reports: No symptoms Hematologic/Lymphatic: Reports: No symptoms All Other Systems: Reviewed and Negative Past Medical History - Past Medical History Previously Healthy: No Endocrine: Reports: DM 2 Cardiovascular: Reports: CAD, HI, Hypertension Respiratory: Reports: COPD Hematological: Reports: None Gastrointestinal: Reports: GERD Genitourinary: Reports: None Neuro/Psych: Reports: None Musculoskeletal: Reports: Arthritis Cancer: Reports: None Last Menstrual Period: HYSTERECTOMY Other Pertinent Past Medical History: GALLBLADDER REMOVAL, APPENDECTOMY, HYSTERECTOMY - Surgical History General Surgical History: Reports: Hysterectomy, Appendectomy, Cholecystectomy - Family History Family History: Reports: Unknown - Social History Smoking Status: Former smoker Hx Substance Use: No Alcohol Screening: Occasionally - Immunizations Tetanus Shot up to Date: Yes Influenza Vaccine within 12 Months: No Pneumococcal Vaccine up to Date: No Physical Exam - Physical Exam Appearance: Well-appearing, No pain distress, Well-nourished Eyes: MELISSA, EOMI, Conjunctiva clear ENT: Ears normal, Nose normal, Oropharynx normal Respiratory: Airway patent, Breath sounds clear, Breath sounds equal, Respirations nonlabored Cardiovascular: RRR, Pulses normal, No rub, No murmur GI/: Soft, Nontender, No masses, Bowel sounds normal, No Organomegaly Musculoskeletal: Normal strength, ROM intact, No edema, No calf tenderness Skin: Warm, Dry Neurological: Sensation intact, Motor intact, Reflexes intact, Cranial nerves intact, Alert, Oriented Psychiatric: Anxious Interpretation - Radiology Interpretation Radiology Interpretation By: Radiologist Radiology Results: Negative Exam Interpreted: Portable CXR - EKG Interpretation Time of EKG #1: 21:24 Rate: Normal Rhythm: Sinus Ectopy: None [place]: [place] Interpretation: Low voltage EKG Critical Care Note - Critical Care Note Total Time (mins): 0 Course - Course Hematology/Chemistry: 11/03/17 21:20 11/03/17 23:00 Orders, Labs, Meds: Lab Review 11/03/17 11/03/17 11/03/17 21:20 21:20 21:20 WBC 6.90 RBC 4.60 Hgb 13.5 Hct 37.9 MCV 82.4 MCH 29.3 MCHC 35.6 H RDW Coeff of Balwinder 12.5 Plt Count 227 Immature Gran % (Auto) 1.0 Neut % (Auto) 64.0 Lymph % (Auto) 26.1 [facility] % (Auto) 7.8 Eos % (Auto) 0.7 Baso % (Auto) 0.4 Immature Gran # (Auto) 0.1 Neut # 4.4 Lymph # 1.8 [facility] # 0.5 Eos # 0.1 Baso # 0.0 Sodium 133 L Potassium 4.3 Chloride 97 L Carbon Dioxide 27 Anion Gap 13.3 BUN 14 Creatinine 1.08 Estimated GFR (MDRD) 52.00 BUN/Creatinine Ratio 12.96 Glucose 602 H* Calcium 8.7 Total Bilirubin 0.9 AST 15 ALT 23 Alkaline Phosphatase 101 Total Creatine Kinase 27 Troponin I 0.0100 Total Protein 6.3 L Albumin 3.1 L Globulin 3.2 Albumin/Globulin Ratio 0.97 Acetone, Qual None 11/03/17 23:00 WBC RBC Hgb Hct MCV MCH MCHC RDW Coeff of Balwinder Plt Count Immature Gran % (Auto) Neut % (Auto) Lymph % (Auto) [facility] % (Auto) Eos % (Auto) Baso % (Auto) Immature Gran # (Auto) Neut # Lymph # [facility] # Eos # Baso # Sodium Potassium Chloride Carbon Dioxide Anion Gap BUN Creatinine Estimated GFR (MDRD) BUN/Creatinine Ratio Glucose 477 H D Calcium Total Bilirubin AST ALT Alkaline Phosphatase Total Creatine Kinase Troponin I 0.0100 Total Protein Albumin Globulin Albumin/Globulin Ratio Acetone, Qual Orders Category Date Time Status EKG-(ED ONLY) Stat CARDIO 11/03/17 21:16 Completed BLOOD GLUCOSE MONITORING Q1HR CARE 11/03/17 22:00 Active ED IV/MEDIPORT/POWERPORT .ONCE EMERGENCY 11/03/17 21:19 Inactive ACETONE, QUALITATIVE Stat LAB 11/03/17 21:20 Completed CBC W/ AUTO DIFF Stat LAB 11/03/17 21:20 Completed COMPREHENSIVE METABOLIC PANEL Stat LAB 11/03/17 21:20 Completed CREATINE KINASE Stat LAB 11/03/17 21:20 Completed GLUCOSE Stat LAB 11/03/17 23:00 Completed TROPONIN I Stat LAB 11/03/17 21:20 Completed TROPONIN I Stat LAB 11/03/17 23:00 Completed Insulin Regular, Human [Humulin R] MEDS 11/03/17 23:38 Discontinued 12 unit .ROUTE .STK-MED ONE Insulin Regular, Human [Humulin R] MEDS 11/03/17 22:18 Discontinued 12 unit SUBCUT ONCE STA Sulfamethoxazole/Trimethoprim [Bactrim Ds 800/160 mg] MEDS 11/03/17 22:00 Discontinued 1 tab PO ONCE STA CHEST, 1V AP ONLY Stat RADS 11/03/17 21:16 Taken Medications Discontinued Medications Generic Name Dose Route Start Last Admin Trade Name Zuri PRN Reason Stop Dose Admin Insulin Human Regular 12 unit 11/03/17 22:18 11/03/17 22:27 Humulin R SUBCUT 11/03/17 22:19 12 unit ONCE STA Administration Trimethoprim/Sulfamethoxazole 1 tab 11/03/17 22:00 11/03/17 22:27 Bactrim Ds 800/160 Mg PO 11/03/17 22:01 1 tab ONCE STA Administration Vital Signs: Temp Pulse Resp BP Pulse Ox 11/03/17 20:10 98.1 F 74 20 131/54 L 97 Departure - Departure Time of Disposition: 21:58 Disposition: HOME SELF-CARE Discharge Problem: Abscess, Hyperglycemia Instructions: Abscess (ED), Diabetic Hyperglycemia (ED) Condition: Fair Pt referred to PMD for follow-up: Yes IPMP verified?: No Additional Instructions: FOLLOW UP WITH PCP ABOUT MEDICATION FOR BLOOD SUGAR WITH PCP. Prescriptions: Sulfamethoxazole/Trimethoprim [Bactrim Ds Tablet] 1 each PO BID #20 tablet Allergies/Adverse Reactions: Allergies iodine Adverse Reaction (Verified 11/03/17 20:14) INCLUDES IV CONTRAST Home Medications: Ambulatory Orders Omeprazole [Prilosec] 20 mg PO DAILY #30 01/02/15 Nitroglycerin 0.4 mg SL PRN 05/25/15 Multivitamin [Multi-Vitamin Daily] 1 each PO DAILY 01/25/17 Aspirin 81 mg PO d 02/14/17 Cyanocobalamin (Vitamin B-12) [Liquid B-12] 5,000 mcg PO d 02/14/17 Metoprolol Succinate 75 mg PO d 02/14/17 Insulin Regular, Human [Humulin R] 100 unit IJ ACHS PRN #1 vial 07/18/17 Sulfamethoxazole/Trimethoprim [Bactrim Ds Tablet] 1 each PO BID #20 tablet 11/04 Disposition Discussed With: Patient
[2017-11-03] MEDS ORDERED: HUMULIN R SUBCUT STA (22:18)
[2017-11-03] MEDS ORDERED: HUMULIN R ONE (23:38)
--- NOTE | 2017-11-04 07:32 | DI ---
EXAM: Chest one view, frontal view only. HISTORY: Chest pain. COMPARISON: 07/15/2017. FINDINGS: The heart size is normal. There is no pulmonary vascular congestion. The lungs are clear . No pleural effusion or pneumothorax is seen. No acute osseous abnormality is identified. Old rig ht rib fractures noted. Since the prior study, there has been no significant interval change. IMPRESSION: No acute cardiopulmonary process.
== END 2017-11-03 23:40 | disposition home or self-care (01) ==
LOC: ED 20:09
DX: L02.31 Cutaneous abscess of buttock (principal); E11.65 Type 2 diabetes mellitus with hyperglycemia; R07.9 Chest pain, unspecified; I10 Essential (primary) hypertension; I25.10 Atherosclerotic heart disease of native coronary artery without angina pectoris; I25.2 Old myocardial infarction; J44.9 Chronic obstructive pulmonary disease, unspecified
CPT/HCPCS: 36415; 80053; 82009; 82550; 82947; 84484; 85025; 93005; 93010; 96372; 96375; 99283

== ENCOUNTER 2017-11-06 16:41 | Outpatient (CLI) | END 2017-11-06 16:42 | disposition home or self-care (01) | LOC: RHC-LAB 16:41 | PROVIDERS: ATTEND Nurse Practitioner Family | DX: E11.9 Type 2 diabetes mellitus without complications (principal) | CPT/HCPCS: 36415; 83037 ==

== ENCOUNTER 2017-11-12 12:10 | Outpatient (CLI) | END 2017-11-12 12:11 | disposition home or self-care (01) | LOC: RHC-LAB 12:10 | PROVIDERS: ATTEND Nurse Practitioner Family | DX: J02.9 Acute pharyngitis, unspecified (principal); R52 Pain, unspecified; R68.83 Chills (without fever) | CPT/HCPCS: 87651; 87804 ==

== ENCOUNTER 2017-11-12 12:46 | Inpatient (IN) ==
[2017-11-12] MEDS ORDERED: TOPROL XL PO SCH (13:30)
[2017-11-12] MEDS ORDERED: NITROSTAT SL SCH (13:30)
[2017-11-12 13:36] VITALS: BMI 33.7
--- NOTE | 2017-11-12 15:14 | DI ---
Exam: Two x-rays of the chest. Comparison: 11/03/2017. Reason for exam: Coughing. FINDINGS: No pneumothorax, pleural effusion, or focal consolidation. The cardiac silhouette is not enlarged. The imaged osseous structures appear grossly unremarkable without acute fracture. Impression: No acute cardiopulmonary process.
[2017-11-12] MEDS: HUMULIN R SUBCUT STA ×2 (15:15→16:14)
--- NOTE | 2017-11-12 15:15 | CT ---
EXAM: CT abdomen pelvis without contrast HISTORY: Nausea and vomiting with history of hysterectomy and cholecystectomy COMPARISON: CT abdomen pelvis 07/15/2017 and multiple priors TECHNIQUE: Serial axial images of the abdomen pelvis were performed from the lung bases through the inferior pelvis without contrast. These were viewed in multiple planes. FINDINGS: The lung bases are clear. The heart demonstrates mild fatty hypertrophy of the interatria l septum. This is unchanged. Evaluation is limited due to lack of contrast. There is a small hiatal hernia. The liver is unremar kable. The gallbladder has been removed. The adrenal glands are unremarkable. Low attenuation exop hytic lesion off the anterior right kidney is stable. Spleen is unremarkable. The pancreas is unrem arkable. The stomach is nondistended. Small bowel in the abdomen pelvis is unremarkable. The colon is unremarkable. There is mild scatter ed atherosclerotic disease. Urinary bladder is distended. There has been a prior hysterectomy. The re is no free air or free fluid. There is no lymphadenopathy. The osseous structures are unremarkab le. IMPRESSION: 1. No acute intra-abdominal or pelvic process to account for patient's symptoms. 2. Small hiatal hernia. 3. Prior cholecystectomy and hysterectomy. 4. Diverticulosis. 5. Stable fatty hypertrophy of the interatrial septum.
[2017-11-12] MEDS ORDERED: HUMULIN R SUBCUT STA (16:06)
[2017-11-12] MEDS: SODIUM CHLORIDE 1,000 ML IV SCH (16:15)
[2017-11-12] MEDS: PROZAC PO SCH (16:17)
[2017-11-12] MEDS: ZOFRAN 4 MG/2 ML IVP PRN (16:44)
[2017-11-12] MEDS: DEMEROL 25 MG/ML VIAL IVP PRN (17:30)
[2017-11-12] MEDS: HUMULIN R SUBCUT PRN ×2 (19:18→22:57)
[2017-11-13] MEDS: HUMULIN R SUBCUT PRN ×7 (00:42→21:07)
[2017-11-13] MEDS: SODIUM CHLORIDE 1,000 ML IV SCH ×2 (02:21→12:17)
[2017-11-13] MEDS: DEMEROL 25 MG/ML VIAL IVP PRN (06:02)
[2017-11-13] MEDS: ZOFRAN 4 MG/2 ML IVP PRN (06:02)
[2017-11-13] MEDS ORDERED: NON-FORMULARY MEDICATION (Lisinopril [Zestril] 20 MG) PO SCH (09:00)
[2017-11-13] MEDS: LOVENOX SUBCUT SCH (09:12)
[2017-11-13] MEDS: TOPROL XL PO SCH ×2 (09:13→09:14)
[2017-11-13] MEDS: PROZAC PO SCH (09:13)
[2017-11-13] MEDS: ZESTRIL PO SCH (09:13)
[2017-11-13] MEDS ORDERED: NON-FORMULARY MEDICATION (Omeprazole [Prilosec] 20 MG) PO SCH (20:30)
[2017-11-13] MEDS ORDERED: NON-FORMULARY MEDICATION (Hydroxyzine Hcl [Hydroxyzine Hcl] 50 MG) PO SCH (21:00)
[2017-11-13] MEDS ORDERED: LANTUS SUBCUT SCH (21:00)
[2017-11-13] MEDS ORDERED: PRILOSEC ONE (21:04)
[2017-11-13] MEDS ORDERED: ATARAX ONE ×2 (21:12→21:15)
[2017-11-14] MEDS: HUMULIN R SUBCUT PRN ×4 (06:03→21:32)
[2017-11-14] MEDS ORDERED: NITROSTAT SL PRN (07:30)
[2017-11-14] MEDS: LOVENOX SUBCUT SCH (08:42)
[2017-11-14] MEDS: ASPIRIN CHEWABLE PO SCH (08:43)
[2017-11-14] MEDS: TOPROL XL PO SCH ×2 (08:43)
[2017-11-14] MEDS: ZESTRIL PO SCH (08:43)
[2017-11-14] MEDS: LIPITOR PO SCH (08:44)
[2017-11-14] MEDS: MULTIVITAMIN TABLET PO SCH (08:44)
[2017-11-14] MEDS ORDERED: PRILOSEC PO SCH (09:00)
[2017-11-14] MEDS: PROZAC PO SCH (10:01)
[2017-11-14] MEDS: CYMBALTA PO SCH (10:02)
[2017-11-14] MEDS: PRILOSEC PO SCH ×2 (10:02→17:52)
[2017-11-14] MEDS: SODIUM CHLORIDE 1,000 ML IV SCH ×2 (10:18→12:05)
--- NOTE | 2017-11-14 14:15 | PN ---
DATE OF SERVICE: 11/13/17 SUBJECTIVE: The patient was admitted from the office yesterday for the uncontrolled diabetes. Sugar was more than 664 yesterday. She was started on Accu-Checks with coverage every hour. This morning sugar was 137. Nausea and vomiting is better. Amylase, lipase are normal. Flu and strep were negative in the office. REVIEW OF SYSTEMS: CONSTITUTIONAL: No fever, no chills. HEENT: Normal. ENDOCRINE: No weight gain, no weight loss. CVS: No angina symptoms. No CHF symptoms. No palpitations. No atypical chest pain for CAD. No shortness of breath. No PND, no orthopnea. RESPIRATORY: No cough, no hemoptysis. GI: Nausea and vomiting better. No abdominal pain. : No hematuria. No polyuria. MUSCULOSKELETAL: Hurting all over body. PSYCHIATRIC: Not anxious. No depression. No suicidal thoughts. No homicidal thoughts. SKIN: Intact. No rash. PHYSICAL EXAMINATION: GENERAL: Sick-looking lady lying in bed not in any distress, still complains of pain and hurting all over. V/S: BP 124/69, respiratory rate 20, heart rate 69, temperature 98.2, saturation 97. HEENT: Normocephalic, atraumatic. Mucosa dry. Pallor positive. No icterus. NECK: Supple. No JVD, no carotid bruit. No lymphadenopathy. LUNGS: Clear to auscultation. No rales or rhonchi. HEART: S1, S2 normal. No S3. No murmur, gallop or regurgitation. ABDOMEN: Soft, nontender. Bowel sounds active. No rigidity. No rebound or guarding. No CVA tenderness. EXTREMITIES: No pedal edema. No clubbing or cyanosis MUSCULOSKELETAL: No joint swelling. NEUROLOGIC: Awake, alert, oriented times three. No focal deficit. LYMPHATIC: No lymph nodes palpable. SKIN: Intact. LABS: Sodium 139, potassium 3.6, chloride 102, bicarb 26, BUN 16, creatinine 0.84, glucose 137. White count 7.61, hemoglobin 13.3, hematocrit 39.1, platelet count 296. ASSESSMENT: 1. UNCONTROLLED DIABETES 2. ACUTE GASTROENTERITIS 3. CAD STATUS POST STENT 4. SLEEP APNEA 5. DIABETES MELLITUS, LABILE 6. DEPRESSION PLAN: 1. Lovenox for DVT prophylaxis 2. Resume home medications but will not give oral antiglycemics as the patient can be controlled with parenteral insulin. Discussed with the patient and verbalized understanding. 3. Lantus 10 units daily. TIME SPENT: More than 35 minutes MTDD
[2017-11-14] MEDS: ATARAX PO SCH (21:31)
[2017-11-14] MEDS: LANTUS SUBCUT SCH (21:33)
[2017-11-15] MEDS: PRILOSEC PO SCH ×2 (06:04→17:26)
[2017-11-15] MEDS: CYMBALTA PO SCH (09:55)
[2017-11-15] MEDS: ASPIRIN CHEWABLE PO SCH (09:55)
[2017-11-15] MEDS: LOVENOX SUBCUT SCH (09:56)
[2017-11-15] MEDS: LIPITOR PO SCH (09:56)
[2017-11-15] MEDS: PROZAC PO SCH (09:57)
[2017-11-15] MEDS: MULTIVITAMIN TABLET PO SCH (09:57)
[2017-11-15] MEDS: TOPROL XL PO SCH ×2 (09:58)
[2017-11-15] MEDS: ZESTRIL PO SCH (09:58)
[2017-11-15] MEDS: HUMULIN R SUBCUT PRN ×3 (11:30→21:32)
[2017-11-15] MEDS ORDERED: TYLENOL PO STA (20:18)
[2017-11-15] MEDS: LANTUS SUBCUT SCH (21:31)
[2017-11-15] MEDS: ATARAX PO SCH (21:32)
[2017-11-16] MEDS: PRILOSEC PO SCH (05:37)
[2017-11-16] MEDS: ASPIRIN CHEWABLE PO SCH (08:12)
[2017-11-16] MEDS: SODIUM CHLORIDE 1,000 ML IV SCH (08:12)
[2017-11-16] MEDS: LIPITOR PO SCH (09:35)
[2017-11-16] MEDS: PROZAC PO SCH (09:36)
[2017-11-16] MEDS: CYMBALTA PO SCH (09:36)
[2017-11-16] MEDS: ZESTRIL PO SCH (09:36)
[2017-11-16] MEDS: TOPROL XL PO SCH ×2 (09:36→09:37)
[2017-11-16] MEDS: LOVENOX SUBCUT SCH (09:37)
[2017-11-16] MEDS: MULTIVITAMIN TABLET PO SCH (09:37)
[2017-11-16 10:15] VITALS: BP 101/64; TEMP 96.7
[2017-11-16] MEDS: HUMULIN R SUBCUT PRN (11:25)
--- NOTE | 2017-12-12 11:46 | PN ---
DATE OF SERVICE: 11/14/17 SUBJECTIVE: The patient has been tearful and when asked about the depression, she says that she has been depressed and not enjoying her life. Tearful. Also had some homicidal thoughts and crying a lot. Sadness most of the days. She has to take care of almost six grandchildren at home. Hurting all over the body. Nausea, but able to eat food. Sugars are getting better. The patient's oral antidiabetic medication of Metformin, Tradjenta have been on hold. Increasing the Lantus from 10 units to 14 units. REVIEW OF SYSTEMS: CONSTITUTIONAL: No fever, no chills. HEENT: Normal. ENDOCRINE: No weight gain, no weight loss. CVS: No angina symptoms. No CHF symptoms. No palpitations. No atypical chest pain for CAD. No shortness of breath. No PND, no orthopnea. RESPIRATORY: No cough, no hemoptysis. GI: No nausea, no vomiting. No abdominal pain. : No hematuria. No polyuria. MUSCULOSKELETAL: No joint swelling. PSYCHIATRIC: Not anxious. Depression. No suicidal thoughts. No homicidal thoughts. SKIN: Intact. No rash. PHYSICAL EXAMINATION: V/S: Blood pressure 130/72, respiratory rate 12, heart rate 56, temperature 97.8 , saturation 95. HEENT: Normocephalic, atraumatic. Mucosa dry. Pallor positive. No icterus. NECK: Supple. No JVD, no carotid bruit. No lymphadenopathy. LUNGS: Decreased and clear. No rales or rhonchi. HEART: S1, S2 normal. No S3. No murmur, gallop or regurgitation. ABDOMEN: Soft, nontender. Bowel sounds active. No rigidity. No rebound or guarding. No CVA tenderness. EXTREMITIES: No pedal edema. No clubbing or cyanosis MUSCULOSKELETAL: No joint swelling. NEUROLOGIC: Depression, crying episodes and sadness. Awake, alert, oriented times three. No focal deficit. LYMPHATIC: No lymph nodes palpable. SKIN: Intact. LABS: White count 7.04, hemoglobin 12.3, hematocrit 36.7, platelet count 252, sodium 140, potassium 4.1, chloride 107, bicarb 26, BUN 12, creatinine 0.81. Glucose is 151. ASSESSMENT: 1. STATUS UNCONTROLLED DIABETES 2. STATUS POST DEHYDRATION AND GASTROENTERITIS 3. DEPRESSION, NEW DIAGNOSIS 4. DIABETES POORLY CONTROLLED 5. HYPERTENSION 6. DYSLIPIDEMIA 7. CORONARY ARTERY DISEASE 8. STATUS POST STENT IN 2014 PLAN: 1. Start the patient on Cymbalta. 2. Increase the Lantus to 14 units. 3. Continue Prozac. 4. Out of bed to chair. 5. Activity as tolerated. 6. Demerol for pain as needed. TIME SPENT: More than 35 minutes MTDD
--- NOTE | 2017-12-12 13:38 | PN ---
DATE OF SERVICE: 11/15/17 SUBJECTIVE: She is still feeling weak and tired. The patient's home medications of Metformin and Tradjenta have been stopped and the Lantus has been increased to the 14 units. Sugars are 155. Weakness, tiredness with depression and medication Cymbalta was been started. No crying today. REVIEW OF SYSTEMS: CONSTITUTIONAL: No fever, no chills. Weakness and tiredness. HEENT: Normal. ENDOCRINE: No weight gain, no weight loss. CVS: No angina symptoms. No CHF symptoms. No palpitations. No atypical chest pain for CAD. No shortness of breath. No PND, no orthopnea. RESPIRATORY: No cough, no hemoptysis. GI: No nausea, no vomiting. No abdominal pain. : No hematuria. No polyuria. MUSCULOSKELETAL: No joint swelling. PSYCHIATRIC: Not anxious. Depression. No suicidal thoughts. No homicidal thoughts. SKIN: Intact. No rash. PHYSICAL EXAMINATION: V/S: Blood pressure is 129/67, respiratory rate 18, heart rate 59, temperature 97.7, saturation 96. HEENT: Normocephalic, atraumatic. Mucosa dry. NECK: Supple. No JVD, no carotid bruit. No lymphadenopathy. LUNGS: Decreased and clear. No rales or rhonchi. HEART: S1, S2 normal. No S3. No murmur, gallop or regurgitation. ABDOMEN: Soft, nontender. Bowel sounds active. No rigidity. No rebound or guarding. No CVA tenderness. EXTREMITIES: No pedal edema. No clubbing or cyanosis MUSCULOSKELETAL: No joint swelling. NEUROLOGIC:Awake, alert, oriented times three. No focal deficit. LYMPHATIC: No lymph nodes palpable. SKIN: Intact. LABS: Sodium is 140, potassium 4.1, chloride 107, bicarb 27, BUN 12, creatinine 0.81, glucose 155, white count 7.04, hemoglobin 12.3, hematocrit 36.7 , platelet count 252. ASSESSMENT: 1. STATUS POST UNCONTROLLED DIABETES 2. GASTROENTERITIS AND DEHYDRATION 3. DEPRESSION 4. OSTEOARTHRITIS 5. DJD OF THE SPINE 6. ANXIETY DISORDER 7. SLEEP APNEA ON C-PAP 8. CORONARY ARTERY DISEASE, STATUS POST STENT PLAN: 1. Continue the Lantus 14 units. 2. Accuchecks with the coverage. 3. Out of bed to chair. 4. Demerol for pain. 5. Will see the patient on daily rounds. TIME SPENT: More than 35 minutes MTDD
--- NOTE | 2017-12-12 14:49 | DS ---
DATE OF SERVICE: 11/16/17 FINAL DIAGNOSIS: 1. UNCONTROLLED DIABETES WITH A1C 11.9 2. ACUTE GASTROENTERITIS, INFLUENZA NEGATIVE 3. DEPRESSION, WHICH WAS NOT CONTROLLED WITH THE SINGLE MEDICATION 4. CORONARY ARTERY DISEASE, STATUS POST STENT IN 2014 5. HISTORY OF HEADACHES 6. SLEEP APNEA ON C-PAP 7. GERD 8. OSTEOARTHRITIS 9. DJD OF THE SPINE 10. HISTORY OF NICOTINE USE IN THE PAST PLAN: 1. Discharge the patient home. 2. Stop oral antidiabetic medications., Jardiance, Tradjenta and Metformin. 3. New change: Lantus was increased to 14 units, along with Humulin R coverage per sliding scale. 4. Added Cymbalta 60 mg p.o. daily, Despite the patient was on Prozac, which now the Cymbalta is helping more. 5. Continue the rest of the home medications of Aspirin, Lipitor, Dicyclomine, Prozac, Hydroxyzine, Humulin R with regular insulin coverage, Zestril, Metoprolol, Multivitamin, Nitroglycerin, Prilosec. 6. Diet: 1800 ADA diet. 7. Activity: As much as tolerated. DISEASE SPECIFIC EDUCATION: Diabetes, dehydration, risk of diabetic ketoacidosis was discussed. The patient verbalized understanding. HOSPITAL COURSE: Josefina Rivera, who is 57 year old female, came to the [facility] office and seen by Belia Johns. The patient was actually seen 2- 3 days prior for follow up of respiratory infection and symptoms. She did not get better and her condition was getting worse and she came back to see Belia Johns for nausea, vomiting, not able to keep anything down. Sugars were more than 500 when she was seen in the office. At that time, the patient was a direct admission from the hospital office. Toxicology was negative for Acetone. Urine was negative for the ketones. Initial sugar was 664. Bicarb was normal, so ABG was not done. CT of the abdomen showed the gastroenteritis. Chest x-ray was normal. We started accuchecks with the coverage. IV fluids. We keep her NPO for one day and by the next day the patient was hungry and started on clear liquid diet. Zofran was helping her. The patient started feeling better and she was started on a regular diet. She did not have any problems. As the patient's A1C was almost 12 at 11.8, the patient is already on the Lantus 10 units, so I did stop the oral diabetic medications and increased the Lantus to 14 units. Every since the sugars were better, all below 200. Meanwhile, the patient expressed her depression, but she takes Prozac, but she feels like she is still in a hole and not feeling good and does not enjoy her life. At that time, Cymbalta 60 mg was started. The patient was up and about and more happy. The patient has to take care of the six grandkids at home. Meanwhile, the patient is up and about and did not have any problems and was feeling better. At that time, the patient is being discharged today to home and will be followed in the [facility] within 4-5 days. TIME SPENT: MORE THAN 65 MINUTES AMILCAR
== END 2017-11-16 15:10 | disposition home or self-care (01) | DRG 202 ==
LOC: MEDSURG B 12:46
PROVIDERS: ADMIT Emergency Medicine; ATTEND Emergency Medicine
DX: J20.9 Acute bronchitis, unspecified (principal); R45.851 Suicidal ideations; K52.9 Noninfective gastroenteritis and colitis, unspecified; F32.9 Major depressive disorder, single episode, unspecified; I25.10 Atherosclerotic heart disease of native coronary artery without angina pectoris; E11.65 Type 2 diabetes mellitus with hyperglycemia; G47.30 Sleep apnea, unspecified; K21.9 Gastro-esophageal reflux disease without esophagitis; M19.90 Unspecified osteoarthritis, unspecified site; M47.9 Spondylosis, unspecified; Z79.84 Long term (current) use of oral hypoglycemic drugs; Z86.69 Personal history of other diseases of the nervous system and sense organs; Z87.891 Personal history of nicotine dependence; Z95.5 Presence of coronary angioplasty implant and graft; R68.83 Chills (without fever); R52 Pain, unspecified
CPT/HCPCS: 36415; 80053; 81001; 82009; 82150; 82550; 82962; 83690; 84484; 85025; 87651; 87804; 93005; 93010; 97802

== ENCOUNTER 2018-02-27 19:52 | Inpatient (IN) | payer OTHER ==
[2018-02-27] MEDS ORDERED: SODIUM CHLORIDE 1,000 ML IV STA (20:28)
[2018-02-27] MEDS ORDERED: ASPIRIN CHEWABLE PO STA (20:28)
[2018-02-27] MEDS ORDERED: ZOFRAN 4 MG/2 ML IVP STA (20:28)
[2018-02-27] MEDS ORDERED: NITROSTAT SL STA (20:29)
[2018-02-27] MEDS ORDERED: DUONEB NEB STA (20:29)
[2018-02-27] MEDS ORDERED: HUMULIN R SUBCUT STA (21:01)
--- NOTE | 2018-02-27 21:35 | ED.PDOC ---
General ED Provider: Dr. FENG MILLAN Chief Complaint: Chest Pain Stated Complaint: Patient has a history of MT, diabetes, CVA, COPD. who comes to the ER with c/o chest pain, shortness of breath, dizziness, nausea w/ vomiting and hyperglycemia. States she has been drinking regular soda this week. Has been out of her medications and unable to afford them Time Seen by Physician: 20:00 Mode of Arrival: Walk-In Information Source: Patient Exam Limitations: No limitations Primary Care Provider: [facility] Nursing and Triage Documentation Reviewed and Agree: Yes Reviewed sepsis parameters & appropriate labs ordered?: No System Inflammatory Response Syndrome: Not Applicable Sepsis Protocol: For patient's 13 years and over: Temp is 96.8 and below OR 101 and greater Pulse >90 BPM Resp >20/minute Acutely Altered Mental Status Are patient's symptoms suggestive of a new infection, such as: -Pneumonia -Skin, Soft Tissue -Endocarditis -UTI -Bone, Joint Infection -Implantable Device -Acute Abdominal Infection -Wound Infection -Meningitis -Blood Stream Catheter Infection -Unknown Cardiovascular Complaint Exam - Chest Pain Complaint/Exam Onset: Gradual Duration: off and on Symptoms Are: Still present Timing: Constant Length of Chest Pain Episodes: few min Initial Severity: Moderate Current Severity: Mild Location: Reports: Midsternal Pain Radiates: Reports: None Character: Reports: Pressure Aggravating: Reports: None Alleviating: Reports: Nitro Associated Signs and Symptoms: Reports: Nausea, Vomiting, Cough Related History: Reports: Similar episode, Current Beta Demetrius, Other ( nitroglycerine) Related Surgical History: Reports: None History of Healthcare-Acquired Pneumonia: Reports: No AMI/ACS Risk Factors: Reports: Myocardial Infarction, Diabetes, Obesity TAD Risk Factors: Reports: None Pulmonary Embolism Risk Factors: Reports: None Prior Care for this Complaint: Yes Recent Stress Test: No Recent Echo/LV Function: No JVD Present: No Subcutaneous Emphysema Present: No Diminshed Breath Sounds: No Reproducible Chest Wall Pain: No Bilateral Pulses Present: No Unequal Pulses Noted: No If Risk Factors for AMI/ACS Consider: EKG, Cardiac Enzymes, Serial Studies, Oxygen, Aspirin Care and Dx Studies Discussed With: Family, PCP Director [employer] Consulted: No Differential Diagnoses: Stable Angina Review of Systems - Review Of Systems Constitutional: Reports: Loss of appetite Eyes: Reports: No symptoms Respiratory: Reports: No symptoms Cardiac: Reports: Chest pain GI: Reports: Nausea, Poor appetite, Vomiting : Reports: No symptoms Musculoskeletal: Reports: No symptoms Skin: Reports: No symptoms Neurological: Reports: Anxiety, Depressed Endocrine: Reports: Increased thirst, Increased urine All Other Systems: Reviewed and Negative Past Medical History - Past Medical History Previously Healthy: No Endocrine: Reports: DM 2 Cardiovascular: Reports: CAD, MT, Hypertension Respiratory: Reports: COPD Hematological: Reports: None Gastrointestinal: Reports: GERD Genitourinary: Reports: None Neuro/Psych: Reports: None Musculoskeletal: Reports: Arthritis Cancer: Reports: None Last Menstrual Period: hysterectomy Other Pertinent Past Medical History: GALLBLADDER REMOVAL, APPENDECTOMY, HYSTERECTOMY - Surgical History General Surgical History: Reports: Hysterectomy, Appendectomy, Cholecystectomy - Family History Family History: Reports: Unknown - Social History Smoking Status: Former smoker Hx Substance Use: No Alcohol Screening: None - Immunizations Tetanus Shot up to Date: Yes Influenza Vaccine within 12 Months: No Pneumococcal Vaccine up to Date: No Physical Exam - Physical Exam Appearance: Ill-appearing, Obese Ill-appearing: Mild Pain Distress: Mild Neck: Supple Respiratory: Rhonchi Cardiovascular: RRR GI/: Soft, Nontender, No masses, Bowel sounds normal, No Organomegaly Musculoskeletal: Normal strength, ROM intact, No edema, No calf tenderness Skin: Warm, Dry Neurological: Sensation intact, Alert, Oriented Psychiatric: Anxious Interpretation - Radiology Interpretation Radiology Interpretation By: ED Physician Radiology Results: Negative Exam Interpreted: Portable CXR - EKG Interpretation Rate: Tachy Rhythm: Sinus Ectopy: PVCs Re-Evaluation - Re-Evaluation Time of Re-Evaluation: 23:35 Status: Improved (but blood glucose still elevated > 500) Vital Signs Stable: Yes Pain Level: chest pain gone Appearance: NAD Physician Notification - Case Discussed Physician Notified: Dr he Time of Notification: 23:45 (Admits to SCU place on insulin Drip for possible hyperosmolar non ketotic state. ) Critical Care Note - Critical Care Note Total Time (mins): 45 Course - Course Hematology/Chemistry: 02/27/18 20:33 02/27/18 20:33 Orders, Labs, Meds: Lab Review 02/27/18 02/27/18 02/27/18 20:18 20:33 20:33 WBC 6.72 RBC 4.68 Hgb 13.5 Hct 39.6 MCV 84.6 MCH 28.8 MCHC 34.1 RDW Coeff of Balwinder 12.5 Plt Count 238 Neutrophils % (Manual) 76.0 H Lymphocytes % (Manual) 19.0 Monocytes % (Manual) 3.0 Reactive Lymphocytes 2.0 Anisocytosis Not present Puncture Site Lb O2 Saturation 97.0 ABG pH 7.457 H ABG pCO2 32.4 L ABG pO2 80.0 L ABG HCO3 22.9 ABG Total CO2 24 ABG Base Excess -1 Aniket Test + FiO2 % 21.0 Sodium 133 L Potassium 3.1 L Chloride 96 L Carbon Dioxide 25 Anion Gap 15.1 BUN 8 Creatinine 1.24 Estimated GFR (MDRD) 44.00 BUN/Creatinine Ratio 6.45 Glucose 756 H* Hemoglobin A1c Lactic Acid Calcium 8.7 Total Bilirubin 0.5 AST 12 L ALT 16 Alkaline Phosphatase 110 Total Creatine Kinase 19 Troponin I 0.0190 Total Protein 6.1 L Albumin 2.5 L Globulin 3.6 Albumin/Globulin Ratio 0.69 Procalcitonin Acetone, Qual 02/27/18 02/27/18 02/27/18 20:33 20:33 20:33 WBC RBC Hgb Hct MCV MCH MCHC RDW Coeff of Balwinder Plt Count Neutrophils % (Manual) Lymphocytes % (Manual) Monocytes % (Manual) Reactive Lymphocytes Anisocytosis Puncture Site O2 Saturation ABG pH ABG pCO2 ABG pO2 ABG HCO3 ABG Total CO2 ABG Base Excess Aniket Test FiO2 % Sodium Potassium Chloride Carbon Dioxide Anion Gap BUN Creatinine Estimated GFR (MDRD) BUN/Creatinine Ratio Glucose Hemoglobin A1c Lactic Acid 39.8 H Calcium Total Bilirubin AST ALT Alkaline Phosphatase Total Creatine Kinase Troponin I Total Protein Albumin Globulin Albumin/Globulin Ratio Procalcitonin < 0.05 Acetone, Qual None 02/27/18 20:33 WBC RBC Hgb Hct MCV MCH MCHC RDW Coeff of Balwinder Plt Count Neutrophils % (Manual) Lymphocytes % (Manual) Monocytes % (Manual) Reactive Lymphocytes Anisocytosis Puncture Site O2 Saturation ABG pH ABG pCO2 ABG pO2 ABG HCO3 ABG Total CO2 ABG Base Excess Aniket Test FiO2 % Sodium Potassium Chloride Carbon Dioxide Anion Gap BUN Creatinine Estimated GFR (MDRD) BUN/Creatinine Ratio Glucose Hemoglobin A1c 14.4 H D Lactic Acid Calcium Total Bilirubin AST ALT Alkaline Phosphatase Total Creatine Kinase Troponin I Total Protein Albumin Globulin Albumin/Globulin Ratio Procalcitonin Acetone, Qual Orders Category Date Time Status ABG DRAW REQUEST Routine CARDIO 02/27/18 20:18 Completed EKG-(ED ONLY) Stat CARDIO 02/27/18 20:05 Completed NEBULIZER TREATMENT Stat CARDIO 02/27/18 20:32 Completed Glucose [ED ACCUCHECK ASSESSMENT] .ONCE EMERGENCY 02/27/18 20:04 Active O2 [ED APPLY O2] .ONCE EMERGENCY 02/27/18 20:05 Active ABG Stat LAB 02/27/18 20:18 Completed ACETONE, QUALITATIVE Stat LAB 02/27/18 20:33 Completed BLOOD CULTURE (ED ONLY) Stat LAB 02/27/18 20:33 Received CBC W/ AUTO DIFF Stat LAB 02/27/18 20:33 Completed COMPREHENSIVE METABOLIC PANEL Stat LAB 02/27/18 20:33 Completed CREATINE KINASE Stat LAB 02/27/18 20:33 Completed HEMOGLOBIN A1C Stat LAB 02/27/18 20:33 Completed LACTIC ACID Stat LAB 02/27/18 20:33 Completed MANUAL DIFFERENTIAL Stat LAB 02/27/18 20:33 Completed PROCALCITONIN Stat LAB 02/27/18 20:33 Completed TROPONIN I Stat LAB 02/27/18 20:33 Completed Aspirin [Aspirin Chewable] MEDS 02/27/18 20:28 Discontinued 324 mg PO ONCE STA Insulin Regular, Human [Humulin R] MEDS 02/27/18 21:01 Discontinued 12 unit SUBCUT ONCE STA Ipratropium/Albuterol Neb [Duoneb] MEDS 02/27/18 20:29 Discontinued 1 vial NEB ONCE STA Nitroglycerin [Nitrostat] MEDS 02/27/18 20:29 Discontinued 0.4 mg SL ONCE STA Ondansetron HCl/Pf [Zofran 4 mg/2 ml] MEDS 02/27/18 20:28 Discontinued 4 mg IVP ONCE STA Sodium Chloride 0.9% [Sodium Chloride] 1,000 ml MEDS 02/27/18 20:28 Active IV BOLUS CHEST, 1V AP ONLY Stat RADS 02/27/18 20:18 Taken Medications Generic Name Dose Route Start Last Admin Trade Name Freq PRN Reason Stop Dose Admin Albuterol/Ipratropium 1 vial 02/28/18 06:00 Duoneb NEB RTQID CORNELIO Enoxaparin Sodium 40 mg 02/28/18 09:00 Lovenox SUBCUT DAILY CORNELIO Sodium Chloride 1,000 mls @ 100 mls/hr 02/27/18 20:28 02/27/18 20:34 Sodium Chloride IV 02/28/18 06:27 100 mls/hr BOLUS STA Administration Potassium Chloride/Sodium Chloride 1,000 mls @ 125 mls/hr 02/27/18 23:30 00:56 Sodium Chloride 0.9%-Kcl 20 Meq IV 125 mls/hr .Q8H CORNELIO Administration Insulin Human Regular 100 unit 100 mls @ 5 mls/hr 02/27/18 23:45 02/28/18 00: 56 / Sodium Chloride IV 5 unit/hr .Q20H CORNELIO 5 mls/hr Administration Protocol 5 UNIT/HR Ondansetron HCl 4 mg 02/27/18 23:30 Zofran 4 Mg/2 Ml IVP Q6H PRN Nausea / Vomiting Discontinued Medications Generic Name Dose Route Start Last Admin Trade Name Freq PRN Reason Stop Dose Admin Albuterol/Ipratropium 1 vial 02/27/18 20:29 02/27/18 20:30 Duoneb NEB 02/27/18 20:30 1 vial ONCE STA Administration Aspirin 324 mg 02/27/18 20:28 02/27/18 20:34 Aspirin Chewable PO 02/27/18 20:29 324 mg ONCE STA Administration Insulin Human Regular 12 unit 02/27/18 21:01 02/27/18 21:08 Humulin R SUBCUT 02/27/18 21:02 12 unit ONCE STA Administration Nitroglycerin 0.4 mg 02/27/18 20:29 02/27/18 20:34 Nitrostat SL 02/27/18 20:30 0.4 mg ONCE STA Administration Ondansetron HCl 4 mg 02/27/18 20:28 02/27/18 20:34 Zofran 4 Mg/2 Ml IVP 02/27/18 20:29 4 mg ONCE STA Administration Vital Signs: Temp Pulse Resp BP Pulse Ox 02/27/18 19:55 98 F 91 H 24 188/101 H 98 AKIL Risk Score Age >/= 65: No >/= 3 CAD Risk Factors: Yes Known CAD (Stenosis >/= 50%): Yes ASA Use in Past 7 Days: Yes Severe Angina (>/= 2 episodes in 24 hours): No EKG ST Changes >/= 0.5mm: No Postive Cardiac Marker: No AKIL Total Score: 3 AKIL Risk Score: Risk Score Odds of by 30D 0 0.1 (0.1-0.2) 1 0.3 (0.2-0.3) 2 0.4 (0.3-0.5) 3 0.7 (0.6-0.9) 4 1.2 (1.0-1.5) 5 2.2 (1.9-2.6) 6 3.0 (2.5-3.6) 7 4.8 (3.8-6.1) Departure - Departure Time of Disposition: 23:40 Disposition: ADMITTED INPATIENT Discharge Problem: Hyperosmolar non-ketotic state in patient with type 2 diabetes mellitus, Non- compliance with treatment, Angina pectoris syndrome Diabetes type 2, uncontrolled Qualifiers: Diabetes mellitus buttermaker helper insulin use: with buttermaker helper use Diabetes mellitus complication status: with unspecified complications Qualified Code(s): E11.8 - Type 2 diabetes mellitus with unspecified complications Condition: Stable Pt referred to PMD for follow-up: No (admitted ) IPMP verified?: No Allergies/Adverse Reactions: Allergies iodine Adverse Reaction (Verified 02/27/18 20:06) INCLUDES IV CONTRAST Home Medications: Ambulatory Orders Omeprazole [Prilosec] 20 mg PO DAILY #30 01/02/15 Nitroglycerin 0.4 mg SL PRN 05/25/15 Multivitamin [Multi-Vitamin Daily] 1 each PO DAILY 01/25/17 Aspirin 81 mg PO d 02/14/17 Metoprolol Succinate 75 mg PO d 02/14/17 Insulin Glargine,Hum.rec.anlog [Lantus] 14 unit SUBCUT BEDTIME syr 11/16/17
[2018-02-27] MEDS ORDERED: ZOFRAN 4 MG/2 ML IVP PRN (23:30)
[2018-02-27] MEDS ORDERED: HUMULIN R 100 UNIT in SODIUM CHLORIDE 100 ML IV SCH (23:45)
[2018-02-28 00:17] VITALS: BMI 33.1
[2018-02-28] MEDS: SODIUM CHLORIDE 0.9%-KCL 20 MEQ 1,000 ML IV SCH ×3 (00:56→20:39)
[2018-02-28] MEDS ORDERED: HUMULIN R ONE (01:22)
[2018-02-28] MEDS ORDERED: NON-FORMULARY MEDICATION (Hydroxyzine Hcl [Hydroxyzine Hcl] 50 MG) PO PRN (01:27)
[2018-02-28] MEDS ORDERED: NITROSTAT SL PRN (01:30)
[2018-02-28] MEDS: DUONEB NEB SCH ×4 (05:13→22:12)
[2018-02-28] MEDS ORDERED: PRILOSEC ONE (05:56)
[2018-02-28] MEDS ORDERED: NON-FORMULARY MEDICATION (Omeprazole [Prilosec] 20 MG) PO SCH ×2 (06:30→09:00)
--- NOTE | 2018-02-28 07:11 | DI ---
EXAM: Single view of the chest. History: Chest pain. Comparison: Chest radiograph 11/12/2017 Findings: Heart size is within normal limits. No focal consolidation. No appreciable pleural fluid and no pneumothorax. Coronary artery calcifications or stents. Old right-sided rib fractures. Impression: 1. No acute cardiopulmonary process. 2. Coronary artery disease is suspected
[2018-02-28] MEDS ORDERED: ATARAX PO PRN (07:49)
[2018-02-28] MEDS: LIPITOR PO SCH (08:50)
[2018-02-28] MEDS: ZESTRIL PO SCH (08:50)
[2018-02-28] MEDS: ASPIRIN CHEWABLE PO SCH (08:51)
[2018-02-28] MEDS: TOPROL XL PO SCH (08:51)
[2018-02-28] MEDS: PROZAC PO SCH (08:51)
[2018-02-28] MEDS: TYLENOL PO PRN (08:52)
[2018-02-28] MEDS: LOVENOX SUBCUT SCH (08:52)
[2018-02-28] MEDS ORDERED: NON-FORMULARY MEDICATION (Lisinopril [Zestril] 20 MG) PO SCH (09:00)
[2018-02-28] MEDS: MULTIVITAMIN TABLET PO SCH (09:40)
[2018-02-28] MEDS: HUMULIN R 100 UNIT in SODIUM CHLORIDE 100 ML IV SCH (10:26)
[2018-02-28] MEDS ORDERED: K-DUR PO STA (13:09)
[2018-02-28] MEDS ORDERED: POTASSIUM CHLORIDE 20 MEQ VIAL-ADDITIVE ONLY 20 MEQ in SODIUM CHLORIDE 100 ML IV STA (13:09)
--- NOTE | 2018-02-28 14:04 | CT ---
EXAM: CT abdomen pelvis with contrast TECHNIQUE: Helical axial CT of the abdomen and pelvis was performed with contrast with coronal and s agittal reconstructions. COMPARISON: CT abdomen pelvis from 11/12/2017 HISTORY: Abdominal pain FINDINGS: There is no acute abnormality. Specifically there is no mesenteric inflammation, free air, free fluid or bowel wall thickening or edema or pathologic lymph nodes or obstruction or ileus. The liver, spleen, pancreas,and adrenal glands show no acute abnormality. Lung bases are well-aerate d. There is a small hiatal hernia. There has been prior cholecystectomy. There is no biliary or panc reatic ductal dilatation. There are no suspicious renal masses and no hydronephrosis. There is a small exophytic cyst arising from the anterior aspect of the right kidney. There are no kidney stones. Both ureters demonstrate no rmal course and caliber. There is no filling defect in the urinary bladder. There has been prior hys terectomy. The appendix is not definitely seen. There are no inflamed colonic diverticula. There are no abdomin al wall hernias. There is calcific atherosclerosis of the aorta. There are no acute osseous abnormali ties. There is stable fatty hypertrophy of the interatrial septum. IMPRESSION: 1. No acute abnormality in the abdomen or pelvis. 2. Multiple nonacute findings as listed above.
[2018-02-28] MEDS ORDERED: MORPHINE 4 MG/ML VIAL IVP PRN (14:54)
[2018-02-28] MEDS ORDERED: POTASSIUM CHLORIDE 10 MEQ VIAL-ADDITIVE ONLY 20 MEQ in SODIUM CHLORIDE 1,000 ML IV SCH (15:00)
[2018-02-28] MEDS ORDERED: ROCEPHIN ONE (16:26)
[2018-02-28] MEDS ORDERED: SODIUM CHLORIDE 50 ML IV ONE (16:35)
[2018-02-28] MEDS: ROCEPHIN 1 GM in SODIUM CHLORIDE 50 ML IV SCH (16:36)
[2018-02-28] MEDS ORDERED: MORPHINE 2 MG/ML SYRINGE ONE (18:02)
[2018-02-28] MEDS: LANTUS SUBCUT SCH (20:49)
[2018-03-01] MEDS: TYLENOL PO PRN ×2 (00:17→21:44)
[2018-03-01] MEDS: DUONEB NEB SCH ×4 (04:45→20:42)
[2018-03-01] MEDS: SODIUM CHLORIDE 0.9%-KCL 20 MEQ 1,000 ML IV SCH ×3 (05:51→19:02)
[2018-03-01] MEDS: PRILOSEC PO SCH (05:51)
[2018-03-01] MEDS: ASPIRIN CHEWABLE PO SCH (08:40)
[2018-03-01] MEDS: ZESTRIL PO SCH (08:40)
[2018-03-01] MEDS: LIPITOR PO SCH (08:40)
[2018-03-01] MEDS: MULTIVITAMIN TABLET PO SCH (08:40)
[2018-03-01] MEDS: PROZAC PO SCH (08:41)
[2018-03-01] MEDS: LOVENOX SUBCUT SCH (08:41)
[2018-03-01] MEDS: TOPROL XL PO SCH (08:41)
[2018-03-01] MEDS: ROCEPHIN 1 GM in SODIUM CHLORIDE 50 ML IV SCH (08:41)
[2018-03-01] MEDS: HUMULIN R SUBCUT PRN ×4 (10:43→21:42)
[2018-03-01] MEDS ORDERED: HUMULIN R ONE (16:30)
[2018-03-01] MEDS: HUMULIN R 100 UNIT in SODIUM CHLORIDE 100 ML IV SCH (20:55)
[2018-03-01] MEDS: LANTUS SUBCUT SCH (21:43)
[2018-03-02] MEDS: SODIUM CHLORIDE 0.9%-KCL 20 MEQ 1,000 ML IV SCH (03:22)
[2018-03-02] MEDS: DUONEB NEB SCH ×4 (04:33→19:39)
[2018-03-02] MEDS ORDERED: LASIX IVP STA (05:13)
[2018-03-02] MEDS ORDERED: VASOTEC IV IVP STA (05:13)
[2018-03-02] MEDS ORDERED: SODIUM CHLORIDE 0.9%-KCL 20 MEQ 1,000 ML IV SCH (05:30)
[2018-03-02] MEDS: PRILOSEC PO SCH (06:10)
[2018-03-02] MEDS: ROCEPHIN 1 GM in SODIUM CHLORIDE 50 ML IV SCH (09:21)
[2018-03-02] MEDS: ASPIRIN CHEWABLE PO SCH (09:22)
[2018-03-02] MEDS: TOPROL XL PO SCH (09:23)
[2018-03-02] MEDS: ZESTRIL PO SCH (09:23)
[2018-03-02] MEDS: PROZAC PO SCH (09:26)
[2018-03-02] MEDS: MULTIVITAMIN TABLET PO SCH (09:26)
[2018-03-02] MEDS: LIPITOR PO SCH (09:26)
[2018-03-02] MEDS: LOVENOX SUBCUT SCH (09:27)
[2018-03-02] MEDS: HUMULIN R SUBCUT PRN ×3 (11:53→20:15)
--- NOTE | 2018-03-02 13:07 | DI ---
EXAM: Single view of the chest. History: Cough and dyspnea. Comparison: Chest radiograph 02/27/2018 Findings: Heart size is normal. No focal consolidation. No appreciable pleural fluid and no pneumo thorax. No acute osseous abnormalities. Old right-sided rib fractures again noted. Coronary calcifi cations again noted. Impression: No acute cardiopulmonary process. No change compared to the prior study.
--- NOTE | 2018-03-02 13:24 | PN ---
DATE OF SERVICE: 02/28/18 SUBJECTIVE: Still coughing and congested. Still feeling weak and tired and abdomen has been hurting. Blood sugars are 365 and insulin drip is running at the 3 units per hour. REVIEW OF SYSTEMS: CONSTITUTIONAL: No fever, no chills. HEENT: Normal. ENDOCRINE: No weight gain, no weight loss. CVS: No angina symptoms. No CHF symptoms. No palpitations. No atypical chest pain for CAD. No shortness of breath. No PND, no orthopnea. RESPIRATORY: No cough, no hemoptysis. GI: No nausea, no vomiting. No abdominal pain. : No hematuria. No polyuria. MUSCULOSKELETAL: No joint swelling. PSYCHIATRIC: Not anxious. No depression. No suicidal thoughts. No homicidal thoughts. SKIN: Intact. No rash. PHYSICAL EXAMINATION: V/S: Blood pressure 157/84, respiratory rate 18, heart rate 62, temperature 97.9 and saturation 96. HEENT: Normocephalic, atraumatic. Mucosa dry. Pallor positive. No icterus. NECK: Supple. No JVD, no carotid bruit. No lymphadenopathy. LUNGS: Decreased and basilar crackles. Clear to auscultation. No rales or rhonchi. HEART: S1, S2 normal. No S3. No murmur, gallop or regurgitation. ABDOMEN: Soft, nontender. Bowel sounds active. No rigidity. No rebound or guarding. No CVA tenderness. EXTREMITIES: No cyanosis, clubbing or pedal edema. MUSCULOSKELETAL: No joint swelling. NEUROLOGIC: Awake, alert, oriented times three. No focal deficit. LYMPHATIC: No lymph nodes palpable. SKIN: Intact. LABS: WBC 6.90, hgb 12.0, hct 35.1, plt count 197, sodium 141, potassium 2.9, chloride 107, bicarb 27, BUN 8, creatinine 0.75 and glucose 188. ASSESSMENT: 1. Hyperosmolar hyperglycemia 2. Upper respiratory infection 3. Hypokalemia 4. Chest pain rule out ACS 5. History of CAD status post stent 6. Hypertension 7. Dyslipidemia PLAN: 1. CT of abdomen and pelvis 2. Continue the insulin drip at 3 units 3. Replace the potassium 4. Lovenox for the DVT prophylaxis 5. Troponin and cardiac enzymes are within normal limits at this time. TIME SPENT: More than 35 minutes which is critical care time. [facility]
--- NOTE | 2018-03-02 13:46 | HP ---
DATE OF SERVICE: 02/27/18 CHIEF COMPLAINT: Shortness, coughing and congestion getting yellow/green phlegm. HISTORY OF PRESENT ILLNESS: The patient started having the sharp chest pain with the breathing. The patient has history of diabetes and sugars been high. She came to the emergency room and the blood pressure was 188/101. Sugars were 756, sodium 133, potassium 3.1, ABG showed the pH 7.457, pCO2 32.5, pO2 80. Acetone is negative. Dr. Mariano gave the patient 2 more units of insulin and still the sugars were around 300. At that time she was admitted to the hospital with the hyperosmolar hyperglycemia, upper respiratory infection and chest pain most like pleuritic with insulin drip to the SCU. REVIEW OF SYSTEMS: CONSTITUTIONAL: No fever, no chills. Weakness and tiredness. HEENT: Normal. ENDOCRINE: No weight gain; no weight loss. CVS: Chest pain sharp type of pain. No PND, no orthopnea. Shortness of breath. No PND, no orthopnea. RESPIRATORY: Cough, Congestion. No hemoptysis. GI: No nausea, no vomiting. No abdominal pain. No melena. : No hematuria. No polyuria. MUSCULOSKELETAL: No joint swelling. PSYCHIATRIC: Not anxious. No depression. No suicidal thoughts. No homicidal thoughts. SKIN: Intact, no open lesions. PAST MEDICAL HISTORY: CAD status post stent May 18 2015 Hypertension History of TIA CVA Asthma Sleep apnea Diabetes poor controlled Depression PAST SURGICAL HISTORY: Cholecystectomy Appendectomy PERSONAL HISTORY: The patient used to smoking and quit in January 2017. FAMILY HISTORY: Heart problems MEDICATIONS: Prilosec Nitroglycerin Multivitamin Metoprolol Aspirin Zestril Hydroxyzine Insulin regular Insulin Fluoxetine Atorvastatin ALLERGIES: Iodine PHYSICAL EXAMINATION: V/S: Blood pressure 188/101, respiratory rate 24, hear rate 91, temperature 98 and saturation 98%. HEENT: Atraumatic, normocephalic. No scleral icterus. Pallor positive. Mucosa dry. Sick looking lady laying in the bed and not in any distress. NECK: Supple. No JVD, no bruit. No lymphadenopathy. No thyromegaly. HEART: S1, S2 normal. No murmur. No cyanosis or clubbing. No ascites. LUNGS: Decreased and basilar crackles. Expiratory wheezing is present. Clear to auscultation. No rales or rhonchi. ABDOMEN: Soft, Tender in left lower quadrant and right lower quadrant. Bowel sounds are active. No CVA tenderness. No rigidity or guarding. Epigastric discomfort present. EXTREMITIES: No pedal edema. No cyanosis or clubbing MUSCULOSKELETAL: Normal joints, no swelling. NEUROLOGIC: The patient is awake and alert. SKIN: Intact; no open lesions. LYMPHATIC: No lymph nodes palpable. LABS: WBC 6.72, hgb 13.5, hct 39.6, plt count 238, sodium 133, potassium 3.1, chloride 96, bicarb 25, BUN 8, creatinine 1.24, glucose 756, lactic acid is 39.8 and acetone is negative. Troponin and creatinine kinase are negative. A1c 14.4. ASSESSMENT: 1. Hyperosmolar hyperglycemia 2. COPD exacerbation secondary to the bronchitis/pleuritis 3. CAD status post stent 4. Hypertension 5. Dyslipidemia 6. Osteoarthritis 7. DJD spine PLAN: 1. Admit patient to the SCU 2. Insulin drip 3. Lovenox 4. Accu-checks with coverage 5. CMP in the morning 6. Replace the Potassium TIME SPENT: MORE THAN 75 minutes, ICU time. The patient was seen and examined in the emergency room. [facility]
[2018-03-02] MEDS: HUMULIN R 100 UNIT in SODIUM CHLORIDE 100 ML IV SCH (18:52)
[2018-03-02] MEDS ORDERED: HUMULIN R ONE (20:06)
[2018-03-02] MEDS: LANTUS SUBCUT SCH (20:16)
[2018-03-02] MEDS: TYLENOL PO PRN (23:05)
[2018-03-03] MEDS: DUONEB NEB SCH ×4 (05:28→20:09)
[2018-03-03] MEDS: PRILOSEC PO SCH (05:55)
[2018-03-03] MEDS ORDERED: HUMULIN R ONE (06:14)
[2018-03-03] MEDS: HUMULIN R SUBCUT PRN ×3 (06:20→21:50)
[2018-03-03] MEDS: ZESTRIL PO SCH (08:32)
[2018-03-03] MEDS: TOPROL XL PO SCH (08:32)
[2018-03-03] MEDS: ROCEPHIN 1 GM in SODIUM CHLORIDE 50 ML IV SCH (08:32)
[2018-03-03] MEDS: MULTIVITAMIN TABLET PO SCH (08:33)
[2018-03-03] MEDS: ASPIRIN CHEWABLE PO SCH (08:33)
[2018-03-03] MEDS: PROZAC PO SCH (08:33)
[2018-03-03] MEDS: LIPITOR PO SCH (08:33)
[2018-03-03] MEDS: LOVENOX SUBCUT SCH (08:34)
[2018-03-03] MEDS ORDERED: DECADRON 4 MG/ML SDV IM STA (08:47)
[2018-03-03] MEDS: MUCINEX DM ER 600-30 MG TABLET PO SCH ×2 (09:23→21:01)
--- NOTE | 2018-03-03 10:01 | PN ---
DATE OF SERVICE: 03/02/18 SUBJECTIVE: The patient was admitted with the hyperosmolar hyperglycemia and sugars are better 188-180. The patient is off of the insulin drip. Still coughing and congestion. Chest x-ray negative for the pneumonia. Getting breathing treatments and antibiotics. Blood pressure was elevated yesterday for which Vasotec IV push was given. REVIEW OF SYSTEMS: CONSTITUTIONAL: No fever, no chills. HEENT: Normal. ENDOCRINE: No weight gain, no weight loss. CVS: No angina symptoms. No CHF symptoms. No palpitations. No atypical chest pain for CAD. No shortness of breath. No PND, no orthopnea. RESPIRATORY: No cough, no hemoptysis. GI: No nausea, no vomiting. No abdominal pain. : No hematuria. No polyuria. MUSCULOSKELETAL: No joint swelling. PSYCHIATRIC: Not anxious. No depression. No suicidal thoughts. No homicidal thoughts. SKIN: Intact. No rash. PHYSICAL EXAMINATION: V/S: Blood pressure 156/91, respiratory rate 23, heart rate 66, temperature 98.2 with saturation 97%. HEENT: Normocephalic, atraumatic. Mucosa dry. NECK: Supple. No JVD, no carotid bruit. No lymphadenopathy. LUNGS: Decreased and basilar crackles. No rales or rhonchi. HEART: S1, S2 normal. No S3. No murmur, gallop or regurgitation. ABDOMEN: Soft, nontender. Bowel sounds active. No rigidity. No rebound or guarding. No CVA tenderness. EXTREMITIES: No cyanosis, clubbing or pedal edema. MUSCULOSKELETAL: No joint swelling. NEUROLOGIC: Awake, alert, oriented times three. No focal deficit. LYMPHATIC: No lymph nodes palpable. SKIN: Intact. LABS: Sodium 139, potassium 4.0, chloride 108, bicarb 25, BUN 10, creatinine 0.74, glucose 180. WBC 8.0, hgb 12.0, hct 36.2, plt count 195. ASSESSMENT: 1. Hyperosmolar hyperglycemia 2. Uncontrolled hypertension 3. Upper respiratory infection 4. Anxiety 5. Depression 6. CAD status post stent 7. TIA 8. Asthma 9. Sleep apnea on CPAP PLAN: 1. Continue the Rocephin 2. Stop the IV fluids 3. DUO NEBS 4. Daily I&O's 5. Accu-checks with coverage TIME SPENT: More than 35 minutes MTDD
--- NOTE | 2018-03-03 10:27 | PN ---
DATE OF SERVICE: 03/01/18 SUBJECTIVE: Still feeling weak and tired. Cough and congestion with no fever or chills. Sugars are around 300's. Drip was started again. REVIEW OF SYSTEMS: CONSTITUTIONAL: No fever, no chills. HEENT: Normal. ENDOCRINE: No weight gain, no weight loss. CVS: No angina symptoms. No CHF symptoms. No palpitations. No atypical chest pain for CAD. No shortness of breath. No PND, no orthopnea. RESPIRATORY: Cough, no hemoptysis. GI: No nausea, no vomiting. No abdominal pain. : No hematuria. No polyuria. MUSCULOSKELETAL: No joint swelling. PSYCHIATRIC: Not anxious. No depression. No suicidal thoughts. No homicidal thoughts. SKIN: Intact. No rash. PHYSICAL EXAMINATION: V/S: Blood pressure 162/74, respiratory rate 20, heart rate 64, temperature 98.4 with saturation 98%. GENERAL: Sick looking lady laying in the bed not in any distress. HEENT: Normocephalic, atraumatic. Mucosa dry. Pallor positive. No icterus. NECK: Supple. No JVD, no carotid bruit. No lymphadenopathy. LUNGS: Bibasilar crackles and mild expiratory wheezing. Clear to auscultation. No rales or rhonchi. HEART: S1, S2 normal. No S3. No murmur, gallop or regurgitation. ABDOMEN: Soft, nontender. Bowel sounds active. No rigidity. No rebound or guarding. No CVA tenderness. EXTREMITIES: No cyanosis, clubbing or pedal edema. MUSCULOSKELETAL: No joint swelling. NEUROLOGIC: Awake, alert, oriented times three. No focal deficit. LYMPHATIC: No lymph nodes palpable. SKIN: Intact. LABS: WBC 8.0, hgb 12.0, hct 36.2, plt count 195, sodium 139, potassium 4.0, chloride 108, bicarb 25, BUN 10, creatinine 0.70 and glucose 180. A1c 14.4. ASSESSMENT: 1. Hyperosmolar hyperglycemia 2. Upper respiratory infection 3. Chest pain noncardiac 4. Depression 5. Anxiety 6. CAD status post stent, May 18, 2015 7. TIA 8. GERD PLAN: 1. Slowly ween off the insulin 2. DUO NEBS 3. Rocephin 1 gram daily 4. Lovenox for the DVT prophylaxis 5. Continue IV fluids at 70ml per hours. TIME SPENT: More than 35 minutes MTDD
--- NOTE | 2018-03-03 13:47 | US ---
EXAM: Carotid ultrasound HISTORY: Hypertension COMPARISON: 01/02/2015 TECHNIQUE: Carotid ultrasound was performed using varghese scale, color, and Doppler imaging was perform ed. FINDINGS: Right carotid: There is atherosclerotic plaque in the common carotid and bulb/proximal internal lorenzo tid artery. Peak systolic velocity measurement in the right internal carotid artery is 0.8 meters pe r second. End-diastolic velocity measurement in the right internal carotid artery is 0.2 meters per second. Right internal to common carotid artery peak systolic velocity ratio is 1.0. Flow in the ri ght vertebral artery is antegrade. Left carotid: There is atherosclerotic plaque in the common carotid and bulb/proximal internal carot id artery. Peak systolic velocity measurement in the left internal carotid artery is 0.7 meters per second. End-diastolic velocity measurement in the left internal carotid artery is 0.2 meters per sec ond. Left internal to common carotid artery peak systolic velocity ratio measures 1.1. Flow in the left vertebral artery is antegrade. IMPRESSION: 1. Right internal carotid: Peak systolic velocity corresponds with mild (less than 50%) stenosis 2. Left internal carotid: Peak systolic velocity corresponds with mild (less than 50%) stenosis
[2018-03-03] MEDS: HUMULIN R 100 UNIT in SODIUM CHLORIDE 100 ML IV SCH (13:58)
[2018-03-03] MEDS: TYLENOL PO PRN (18:53)
[2018-03-03] MEDS: KEFLEX PO SCH (21:02)
[2018-03-03] MEDS: LANTUS SUBCUT SCH (21:02)
[2018-03-04] MEDS: DUONEB NEB SCH ×4 (05:48→19:55)
[2018-03-04] MEDS: PRILOSEC PO SCH ×3 (05:56→16:32)
[2018-03-04] MEDS: HUMULIN R SUBCUT PRN ×4 (05:56→20:56)
--- NOTE | 2018-03-04 09:02 | PN ---
DATE OF SERVICE: 03/03/18 SUBJECTIVE: Still coughing and congestion feeling somewhat better. Sugars are 188 and 180. REVIEW OF SYSTEMS: CONSTITUTIONAL: No fever, no chills. HEENT: Normal. ENDOCRINE: No weight gain, no weight loss. CVS: No angina symptoms. No CHF symptoms. No palpitations. No atypical chest pain for CAD. No shortness of breath. No PND, no orthopnea. RESPIRATORY: No cough, no hemoptysis. GI: No nausea, no vomiting. No abdominal pain. : No hematuria. No polyuria. MUSCULOSKELETAL: No joint swelling. PSYCHIATRIC: Not anxious. No depression. No suicidal thoughts. No homicidal thoughts. SKIN: Intact. No rash. PHYSICAL EXAMINATION: V/S: Blood pressure 143/87, respiratory rate 20, heart rate 64, temperature 97.8 with saturation 99.%. HEENT: Normocephalic, atraumatic. Mucosa dry, Pallor positive. No icterus. NECK: Supple. No JVD, no carotid bruit. No lymphadenopathy. LUNGS: Decreased and basilar crackles. Clear to auscultation. No rales or rhonchi. HEART: S1, S2 normal. No S3. No murmur, gallop or regurgitation. ABDOMEN: Soft, nontender. Bowel sounds active. No rigidity. No rebound or guarding. No CVA tenderness. EXTREMITIES: No cyanosis, clubbing or pedal edema. MUSCULOSKELETAL: No joint swelling. NEUROLOGIC: Awake, alert, oriented times three. No focal deficit. LYMPHATIC: No lymph nodes palpable. SKIN: Intact. LABS: Sodium 139, potassium 4.0, chloride 108, bicarb 25, BUN 10, creatinine 0.74, glucose 180, A1c 14.4, WBC 8.0, hgb 12.0, hct 36.2, plt count 195. ASSESSMENT: 1. Status post hyperosmolar hyperglycemia 2. Upper respiratory infection 3. CAD status post stent 4. Hypertension 5. Dyslipidemia 6. Osteoarthritis PLAN: 1. Stop the IV fluids 2. Stop the Rocephin 3. Start the Keflex 4. 1cc Decadron 5. Vasotec PRN 6. Daily I&O's TIME SPENT: More than 35 minutes MTDD
[2018-03-04] MEDS: TOPROL XL PO SCH (09:45)
[2018-03-04] MEDS: ASPIRIN CHEWABLE PO SCH (09:45)
[2018-03-04] MEDS: MUCINEX DM ER 600-30 MG TABLET PO SCH ×2 (09:46→20:55)
[2018-03-04] MEDS: LIPITOR PO SCH (09:46)
[2018-03-04] MEDS: MULTIVITAMIN TABLET PO SCH (09:46)
[2018-03-04] MEDS: ZESTRIL PO SCH (09:46)
[2018-03-04] MEDS: PROZAC PO SCH (09:46)
[2018-03-04] MEDS: JARDIANCE PO SCH (09:47)
[2018-03-04] MEDS: LOVENOX SUBCUT SCH (09:47)
[2018-03-04] MEDS: KEFLEX PO SCH ×2 (09:47→20:55)
[2018-03-04] MEDS: LEXAPRO PO SCH (16:32)
[2018-03-04] MEDS ORDERED: LANTUS SUBCUT SCH (21:00)
[2018-03-05] MEDS: DUONEB NEB SCH ×2 (04:45→10:14)
[2018-03-05] MEDS: PRILOSEC PO SCH (05:56)
[2018-03-05] MEDS: HUMULIN R SUBCUT PRN ×2 (06:22→12:14)
[2018-03-05] MEDS: JARDIANCE PO SCH (08:41)
[2018-03-05] MEDS: KEFLEX PO SCH (08:41)
[2018-03-05] MEDS: TOPROL XL PO SCH (08:42)
[2018-03-05] MEDS: LIPITOR PO SCH (08:43)
[2018-03-05] MEDS: ASPIRIN CHEWABLE PO SCH (08:52)
[2018-03-05] MEDS: ZESTRIL PO SCH (08:52)
[2018-03-05] MEDS: LEXAPRO PO SCH (08:52)
[2018-03-05] MEDS: PROZAC PO SCH (08:52)
[2018-03-05] MEDS: MUCINEX DM ER 600-30 MG TABLET PO SCH (08:52)
[2018-03-05] MEDS: MULTIVITAMIN TABLET PO SCH (08:53)
[2018-03-05] MEDS: LOVENOX SUBCUT SCH (08:54)
[2018-03-05 10:19] VITALS: BP 120/62; TEMP 98.1
--- NOTE | 2018-03-05 14:12 | PN ---
DATE OF SERVICE: 03/04/18 SUBJECTIVE: The patient is still coughing and sugars are still up and down. They went up to 500 yesterday night. Extra coverage was given. Up and about walking. REVIEW OF SYSTEMS: CONSTITUTIONAL: No fever, no chills. HEENT: Normal. ENDOCRINE: No weight gain, no weight loss. CVS: No angina symptoms. No CHF symptoms. No palpitations. No atypical chest pain for CAD. No shortness of breath. No PND, no orthopnea. RESPIRATORY: No cough, no hemoptysis. GI: No nausea, no vomiting. No abdominal pain. : No hematuria. No polyuria. MUSCULOSKELETAL: No joint swelling. PSYCHIATRIC: Not anxious. No depression. No suicidal thoughts. No homicidal thoughts. SKIN: Intact. No rash. PHYSICAL EXAMINATION: V/S: Blood pressure 110/60, respiratory rate 20, heart rate 68, temperature 97.9 with saturation 99%. HEENT: Normocephalic, atraumatic. Mucosa dry. Pallor positive. No icterus. NECK: Supple. No JVD, no carotid bruit. No lymphadenopathy. LUNGS: Decreased and basilar crackles. Clear to auscultation. No rales or rhonchi. HEART: S1, S2 normal. No S3. No murmur, gallop or regurgitation. ABDOMEN: Soft, nontender. Bowel sounds active. No rigidity. No rebound or guarding. No CVA tenderness. EXTREMITIES: No cyanosis, clubbing or pedal edema. MUSCULOSKELETAL: No joint swelling. NEUROLOGIC: Awake, alert, oriented times three. No focal deficit. LYMPHATIC: No lymph nodes palpable. SKIN: Intact. LABS: Sodium 135, potassium 3.9, chloride 98, bicarb 27, BUN 13, creatinine 0.85, glucose 397, WBC 8.74, hgb 12.3, hct 36.3, plt count 286. ASSESSMENT: 1. Hyperosmolar hyperglycemia 2. COPD exacerbation secondary to bronchitis 3. CAD status post stent 4. Hypertension 5. Dyslipidemia 6. Osteoarthritis 7. DJD spine PLAN: 1. Continue monitor the Accu-checks 2. Keflex 500mg twice a day 3. DUO NEBS 4. Lovenox for the DVT prophylaxis. 5. Out of bed to chair activity as tolerated 6. Increase the Lantus insulin to 18 units 7. Continue the coverage Will follow the patient in daily rounds. TIME SPENT: More than 35 minutes MTDD
--- NOTE | 2018-03-09 13:59 | DS ---
DATE OF SERVICE: 03/05/18 FINAL DIAGNOSIS: 1. HYPEROSMOLAR HYPERGLYCEMIA 2. UPPER RESPIRATORY INFECTION 3. DEPRESSION/ANXIETY 4. CHRONIC PAIN SYNDROME 5. CAD STATUS POST STENT 05/2015 6. HISTORY OF TIA AND CVA, NO RESIDUAL WEAKNESS 7. HYSTERECTOMY 8. DEPRESSION 9. NICOTINE USE 10. CHOLECYSTECTOMY 11. APPENDECTOMY DISCHARGE INSTRUCTIONS: Followup appointment at the [facility] on 03/10/18 @ 10:30 a.m. MEDICATION CHANGES: Lisinopril 20 mg Stop Lantus 14 units at bedtime MEDICATIONS AT DISCHARGE: Lantus 18 units Lipitor Prozac Hydroxyzine Aspirin Metoprolol Multivitamin Nitroglycerin Jardiance Lexapro Zestril Prilosec NEW PRESCRIPTIONS: Lisinopril 40 mg one daily Lexapro 10 mg one daily DIET INSTRUCTIONS: Diabetic - Consistent carbs (avoid regular sodas) Heart Healthy ACTIVITY: Resume as tolerated DISEASE SPECIFIC EDUCATION: Diabetes, uncontrolled, risk of DKA, hyperosmolar and hyperglycemia discussed, verbalized understanding. Coronary artery disease HOSPITAL COURSE: This is a 57-year-old female having some cough, congestion, and shortness of breath started having elevated sugars, came to the emergency room and sugars were 756. At that time, the patient was admitted with an insulin drip to SCU. The patient's A1C was 14.4, lactic acid 39.8, empirically started treating with Rocephin, potassium 3.1 which was replaced. Gradually tapered the insulin drip, was able to go back to the regular home medications. The patient has cough and congestion. Continued with the Rocephin and breathing treatment, Duonebs. She started feeling better, up and about. Potassium went up to 2.9 which has been replaced. Hemoglobin and hematocrit stable. Chest x-ray and CT scan of the chest were negative. Hospital course was uneventful. As the patient was feeling better, the patient was noticed to have a lot of depression and anxiety problems so Lexapro was added, which did help the patient, more awake and more active. Repeat chest x-ray did not show any acute infiltrates. Meanwhile blood pressure was high. Lisinopril was increased to 40 mg and Lantus insulin drip to 18 units by which measures. Blood pressure was controlled and blood sugars below 200. At that time, the patient was discharged home. TIME SPENT: MORE THAN 65 MINUTES MTDD
== END 2018-03-05 12:25 | disposition home or self-care (01) | DRG 641 ==
LOC: ED 19:52 → SCU 23:22
PROVIDERS: ADMIT Emergency Medicine; ATTEND Emergency Medicine
DX: R73.9 Hyperglycemia, unspecified (principal); J44.1 Chronic obstructive pulmonary disease with (acute) exacerbation; J44.0 Chronic obstructive pulmonary disease with (acute) lower respiratory infection; J06.9 Acute upper respiratory infection, unspecified; J20.9 Acute bronchitis, unspecified; I10 Essential (primary) hypertension; E78.5 Hyperlipidemia, unspecified; E87.6 Hypokalemia; M47.9 Spondylosis, unspecified; M19.90 Unspecified osteoarthritis, unspecified site; F41.8 Other specified anxiety disorders; G89.4 Chronic pain syndrome; K21.9 Gastro-esophageal reflux disease without esophagitis; G47.30 Sleep apnea, unspecified; R06.02 Shortness of breath; R07.9 Chest pain, unspecified; R11.2 Nausea with vomiting, unspecified; R42 Dizziness and giddiness; I25.2 Old myocardial infarction; G45.9 Transient cerebral ischemic attack, unspecified; I25.10 Atherosclerotic heart disease of native coronary artery without angina pectoris; Z72.0 Tobacco use; Z79.4 Long term (current) use of insulin
CPT/HCPCS: 36415; 80048; 80053; 80306; 81001; 82009; 82550; 82803; 82962; 83036; 83605; 84145; 84484; 85007; 85025; 87040; 87081; 93005; 93010; 94640; 96361; 96372; 96374; 96375; 97802; 99285

== ENCOUNTER 2018-04-15 09:09 | Inpatient (IN) | payer OTHER ==
--- NOTE | 2018-04-15 10:35 | DI ---
EXAM: Chest one view, frontal view only. HISTORY: Chest pain. COMPARISON: 03/02/2018. FINDINGS: The heart size is normal. There is no pulmonary vascular congestion. The lungs are clear . No pleural effusion or pneumothorax is seen. No acute osseous abnormality is identified. Old rig ht rib fractures again noted. Since the prior study, there has been no significant interval change. IMPRESSION: No acute cardiopulmonary process.
--- NOTE | 2018-04-15 10:50 | ED.PDOC ---
General ED Provider: Dr. TAMARA EDWARDS Chief Complaint: Chest Pain Stated Complaint: chest pain Time Seen by Physician: 09:14 (seen with entire nursing staff) Mode of Arrival: Walk-In Information Source: Patient Exam Limitations: No limitations [facility] Nursing and Triage Documentation Reviewed and Agree: Yes Does patient meet sepsis criteria?: No System Inflammatory Response Syndrome: Not Applicable Sepsis Protocol: For patient's 13 years and over: Temp is 96.8 and below OR 101 and greater Pulse >90 BPM Resp >20/minute Acutely Altered Mental Status Are patient's symptoms suggestive of a new infection, such as: -Pneumonia -Skin, Soft Tissue -Endocarditis -UTI -Bone, Joint Infection -Implantable Device -Acute Abdominal Infection -Wound Infection -Meningitis -Blood Stream Catheter Infection -Unknown Cardiovascular Complaint Exam - Chest Pain Complaint/Exam Onset: Gradual Duration: 5am today Symptoms Are: Still present Timing: Intermittent Initial Severity: Moderate Current Severity: None Location: Reports: Discrete, Midsternal Pain Radiates: Reports: None Character: Reports: Aching Aggravating: Reports: None Alleviating: Reports: None Associated Signs and Symptoms: Reports: Nausea. Denies: Diaphoresis, Vomiting, Fever, Palpitations, Cough, Hemoptysis, Back pain, Abdominal pain, Dizziness, Short of air, Calf pain, Calf swelling Related History: Reports: Similar episode Related Surgical History: Reports: None History of Healthcare-Acquired Pneumonia: Reports: No AMI/ACS Risk Factors: Reports: Diabetes, Obesity, Hypertension TAD Risk Factors: Reports: Hypertension Pulmonary Embolism Risk Factors: Reports: Bedrest Recent Stress Test: No Recent Echo/LV Function: No JVD Present: No Subcutaneous Emphysema Present: No Diminshed Breath Sounds: No Reproducible Chest Wall Pain: No Bilateral Pulses Present: Yes Unequal Pulses Noted: No If Risk Factors for AMI/ACS Consider: EKG, Cardiac Enzymes Review of Systems - Review Of Systems Constitutional: Reports: Malaise Eyes: Reports: No symptoms Ears, Nose, Mouth, Throat: Reports: No symptoms Respiratory: Reports: Cough Cardiac: Reports: Chest pain GI: Reports: No symptoms : Reports: No symptoms Musculoskeletal: Reports: No symptoms Skin: Reports: No symptoms Neurological: Reports: No symptoms Endocrine: Reports: No symptoms Hematologic/Lymphatic: Reports: No symptoms All Other Systems: Reviewed and Negative Past Medical History - Past Medical History Previously Healthy: No Endocrine: Reports: DM 2 Cardiovascular: Reports: CAD, [place], Hypertension Respiratory: Reports: COPD Hematological: Reports: None Gastrointestinal: Reports: GERD Genitourinary: Reports: None Neuro/Psych: Reports: None Musculoskeletal: Reports: Arthritis Cancer: Reports: None Last Menstrual Period: hysterectomy Other Pertinent Past Medical History: GALLBLADDER REMOVAL, APPENDECTOMY, HYSTERECTOMY - Surgical History General Surgical History: Reports: Hysterectomy, Appendectomy, Cholecystectomy - Family History Family History: Reports: Unknown - Social History Smoking Status: Former smoker Hx Substance Use: No Alcohol Screening: None - Immunizations Influenza Vaccine within 12 Months: No Pneumococcal Vaccine up to Date: No Physical Exam - Physical Exam Appearance: Well-appearing, No pain distress, Well-nourished Eyes: MELISSA, EOMI, Conjunctiva clear ENT: Ears normal, Nose normal, Oropharynx normal Respiratory: Airway patent, Breath sounds clear, Breath sounds equal, Respirations nonlabored Cardiovascular: RRR, Pulses normal, No rub, No murmur GI/: Soft, Nontender, No masses, Bowel sounds normal, No Organomegaly Musculoskeletal: Normal strength, ROM intact, No edema, No calf tenderness Skin: Warm, Dry, Normal color Neurological: Sensation intact, Motor intact, Reflexes intact, Cranial nerves intact, Alert, Oriented Psychiatric: Affect appropriate, Mood appropriate Interpretation - Radiology Interpretation Radiology Interpretation By: Radiologist Radiology Results: No acute changes - Inspector Plating Rate: Tachy Rhythm: Sinus - EKG Interpretation Rate: Tachy Rhythm: Sinus Re-Evaluation - Re-Evaluation Time of Re-Evaluation: 10:00 Status: Improved Vital Signs Stable: Yes Pain Level: 0 Appearance: NAD Lungs: Clear Skin: Warm and Dry Neuro: Alert and Oriented X3 CV: RRR - Re-Evaluation Time of Re-Evaluation: 10:50 Status: Improved Vital Signs Stable: Yes Pain Level: 0 Appearance: NAD Skin: Warm and Dry Neuro: Alert and Oriented X3 CV: RRR Physician Notification - Case Discussed Physician Notified: pmd Time of Notification: 10:50 Admit To: Inpatient Critical Care Note - Critical Care Note Total Time (mins): 0 Course - Course Hematology/Chemistry: 04/15/18 09:15 04/15/18 09:15 Orders, Labs, Meds: Lab Review 04/15/18 04/15/18 09:15 09:15 WBC 10.17 RBC 5.14 Hgb 15.0 Hct 43.1 MCV 83.9 MCH 29.2 MCHC 34.8 RDW Coeff of Balwinder 13.5 Plt Count 325 Immature Gran % (Auto) 0.8 Neut % (Auto) 60.6 Lymph % (Auto) 29.2 [place] % (Auto) 8.6 Eos % (Auto) 0.2 Baso % (Auto) 0.6 Immature Gran # (Auto) 0.1 Neut # (Auto) 6.2 Lymph # (Auto) 3.0 [place] # (Auto) 0.9 Eos # (Auto) 0.0 Baso # (Auto) 0.1 Sodium 129 L Potassium 2.9 L Chloride 90 L Carbon Dioxide 21 Anion Gap 20.9 BUN 11 Creatinine 1.77 H Estimated GFR (MDRD) 29.00 BUN/Creatinine Ratio 6.21 Glucose 647 H* Calcium 10.0 Total Bilirubin 1.3 H AST 18 ALT 23 Alkaline Phosphatase 119 Total Creatine Kinase 29 Troponin I 0.0160 Total Protein 7.2 Albumin 3.6 Globulin 3.6 Albumin/Globulin Ratio 1.00 Orders Category Date Time Status EKG-(ED ONLY) Stat CARDIO 04/15/18 09:20 Completed EKG-(IP & OP ONLY) DAILY CARDIO 04/16/18 06:00 Ordered EKG-(IP & OP ONLY) DAILY CARDIO 04/17/18 06:00 Ordered EKG-(IP & OP ONLY) DAILY CARDIO 04/18/18 06:00 Ordered ACTIVITY .Complete BR CARE 04/15/18 10:45 Ordered BLOOD GLUCOSE MONITORING ACCUCHECK Q6H CARE 04/15/18 10:45 Ordered GIVE HS SNACK 2100 CARE 04/15/18 10:46 Ordered VITAL SIGNS Q8HR CARE 04/15/18 10:45 Ordered ADA 1800 RENÉE. DIET DIETARY 04/15/18 Lunch Ordered HS SNACK DIETARY 04/15/18 Dinner Ordered CBC W/ AUTO DIFF DAILY@0600 LAB 04/16/18 06:00 Ordered CBC W/ AUTO DIFF DAILY@0600 LAB 04/17/18 06:00 Ordered CBC W/ AUTO DIFF Stat LAB 04/15/18 09:15 Completed COMPREHENSIVE METABOLIC PANEL DAILY@0600 LAB 04/16/18 06:00 Ordered COMPREHENSIVE METABOLIC PANEL DAILY@0600 LAB 04/17/18 06:00 Ordered COMPREHENSIVE METABOLIC PANEL Stat LAB 04/15/18 09:15 Completed CREATINE KINASE Q8H LAB 04/15/18 17:00 Ordered CREATINE KINASE Q8H LAB 04/16/18 01:00 Ordered CREATINE KINASE Stat LAB 04/15/18 09:15 Completed TROPONIN I Q8H LAB 04/15/18 17:00 Ordered TROPONIN I Q8H LAB 04/16/18 01:00 Ordered TROPONIN I Stat LAB 04/15/18 09:15 Completed Aspirin [Aspirin Chewable] MEDS 04/15/18 11:00 Ordered 81 mg PO d Atorvastatin Calcium [Lipitor] MEDS 04/16/18 09:00 Ordered 20 mg PO DAILY Dapagliflozin Propanediol [Farxiga] MEDS 04/16/18 09:00 Ordered 10 mg PO DAILY Escitalopram Oxalate [Lexapro] MEDS 04/16/18 09:00 Ordered 10 mg PO DAILY Insulin Regular, Human [Humulin R] MEDS 04/15/18 10:46 Ordered See Protocol SUBCUT PRN PRN Metoprolol Succinate [Toprol Xl] MEDS 04/15/18 11:00 Ordered 75 mg PO d Nitroglycerin [Nitrostat] MEDS 04/15/18 11:00 Ordered 0.4 mg SL PRN Omeprazole [Prilosec] MEDS 04/16/18 09:00 Ordered 20 mg PO DAILY Sodium Chloride 0.9% [Sodium Chloride] 1,000 ml MEDS 04/15/18 11:00 Ordered IV 75 mls/hr CHEST, 1V AP ONLY Stat RADS 04/15/18 09:19 Completed Medications Generic Name Dose Route Start Last Admin Trade Name Freq PRN Reason Stop Dose Admin Aspirin 81 mg 04/15/18 11:00 Aspirin Chewable PO d CORNELIO Atorvastatin Calcium 20 mg 04/16/18 09:00 Lipitor PO DAILY CORNELIO Escitalopram Oxalate 10 mg 04/16/18 09:00 Lexapro PO DAILY CORNELIO Sodium Chloride 1,000 mls @ 75 mls/hr 04/15/18 11:00 Sodium Chloride IV .[id number] CORNELIO Insulin Human Regular 0 unit 04/15/18 10:46 Humulin R SUBCUT PRN PRN Hyperglycemica Protocol Metoprolol Succinate 75 mg 04/15/18 11:00 Toprol Xl PO d CORNELIO Nitroglycerin 0.4 mg 04/15/18 11:00 Nitrostat SL PRN CORNELIO Non-Formulary Medication 10 mg 04/16/18 09:00 Dapagliflozin Propanediol [Farxiga] PO DAILY [facility] Non-Formulary Medication 20 mg 04/16/18 09:00 Omeprazole [Prilosec] PO DAILY CORNELIO Vital Signs: Temp Pulse Resp BP Pulse Ox 04/15/18 09:10 97.0 F L 101 H 24 153/93 H 98 AKIL Risk Score AKIL Risk Score: Risk Score Odds of by 30D 0 0.1 (0.1-0.2) 1 0.3 (0.2-0.3) 2 0.4 (0.3-0.5) 3 0.7 (0.6-0.9) 4 1.2 (1.0-1.5) 5 2.2 (1.9-2.6) 6 3.0 (2.5-3.6) 7 4.8 (3.8-6.1) Departure - Departure Time of Disposition: 10:50 Disposition: HOME SELF-CARE Discharge Problem: Chest pain Instructions: Angina (DC) Condition: Good Pt referred to PMD for follow-up: Yes IPMP verified?: No Additional Instructions: Please call your Family Physician as soon as possible to schedule a follow-up appointment. Allergies/Adverse Reactions: Allergies iodine Adverse Reaction (Verified 04/15/18 09:18) INCLUDES IV CONTRAST Home Medications: Ambulatory Orders Omeprazole [Prilosec] 20 mg PO DAILY #30 01/02/15 Nitroglycerin 0.4 mg SL PRN 05/25/15 Multivitamin [Multi-Vitamin Daily] 1 each PO DAILY 01/25/17 Aspirin 81 mg PO d 02/14/17 Metoprolol Succinate 75 mg PO d 02/14/17 Disposition Discussed With: Patient
[2018-04-15] MEDS ORDERED: NITROSTAT SL PRN (11:00)
[2018-04-15 12:13] VITALS: BMI 30.2
[2018-04-15] MEDS ORDERED: SODIUM CHLORIDE IV STA (12:32)
[2018-04-15] MEDS ORDERED: POTASSIUM CHLORIDE IV STA (12:32)
[2018-04-15] MEDS ORDERED: K-DUR PO STA (12:33)
[2018-04-15] MEDS: TOPROL XL PO SCH (13:28)
[2018-04-15] MEDS: SODIUM CHLORIDE 1,000 ML IV SCH (13:28)
[2018-04-15] MEDS: ASPIRIN CHEWABLE PO SCH (13:29)
[2018-04-15] MEDS: TORADOL IVP PRN (13:36)
[2018-04-15] MEDS ORDERED: PRILOSEC PO STA (13:37)
[2018-04-15] MEDS: HUMULIN R SUBCUT PRN ×3 (13:49→17:56)
[2018-04-15] MEDS ORDERED: ZOFRAN 4 MG/2 ML IVP PRN (15:25)
[2018-04-15] MEDS: PROTONIX PO SCH (16:20)
[2018-04-15] MEDS ORDERED: DEMEROL 100 MG/ML SYRINGE IVP PRN (17:38)
--- NOTE | 2018-04-15 18:25 | CT ---
EXAM: CT of the abdomen pelvis without contrast History: Midsternal chest pain, vomiting. Comparison: CT abdomen pelvis 02/28/2018 Technique: Multiplanar CT images through the abdomen pelvis were obtained without the administration of IV contrast Findings: Lung bases are free of consolidation. No acute osseous abnormalities. Status post cholecystectomy. No focal liver or splenic lesions. Atherosclerotic vascular calcificat ions. No peripancreatic inflammation. Adrenal glands are unremarkable. No renal stones and no hydr onephrosis. No change in the simple right renal cyst. No dilated loops of bowel. The appendix is n ot seen. Scattered colonic stool. Bladder is not well distended. No perirectal inflammation. No f ree air and no ascites. There is circumferential wall thickening of the distal esophagus. Uterus is not seen. Impression: Circumferential wall thickening of the distal esophagus could represent esophagitis or n eoplasm. Recommend correlation with upper endoscopy.
[2018-04-15] MEDS ORDERED: GI COCKTAIL PO PRN (19:40)
[2018-04-16] MEDS: SODIUM CHLORIDE 1,000 ML IV SCH ×2 (02:02→16:27)
[2018-04-16] MEDS: PROTONIX PO SCH ×2 (06:00→16:28)
[2018-04-16] MEDS ORDERED: PRILOSEC PO SCH (06:30)
[2018-04-16] MEDS: HUMULIN R SUBCUT PRN ×4 (06:44→20:21)
[2018-04-16] MEDS: LEXAPRO PO SCH (08:51)
[2018-04-16] MEDS: TOPROL XL PO SCH (08:51)
[2018-04-16] MEDS: LIPITOR PO SCH (08:51)
[2018-04-16] MEDS: JARDIANCE PO SCH (08:52)
[2018-04-16] MEDS ORDERED: NON-FORMULARY MEDICATION (Omeprazole [Prilosec] 20 MG) PO SCH (09:00)
[2018-04-16] MEDS ORDERED: NON-FORMULARY MEDICATION (Dapagliflozin Propanediol [Farxiga] 10 MG) PO SCH (09:00)
[2018-04-16] MEDS: ASPIRIN CHEWABLE PO SCH (10:07)
--- NOTE | 2018-04-16 13:16 | HP ---
DATE OF SERVICE: 04/15/18 CHIEF COMPLAINT: Chest pain. HISTORY OF PRESENT ILLNESS: This is a 57-year-old female, who came to the emergency room with midsternal chest pain, feels like someone is sitting on chest. She woke up at 5:30 a.m. Chest heaviness started a few minutes later. History of [place] a little over a year ago. The patient is anxious. She checked her sugars and sugar was high. At that time, she came to the emergency room and was seen by Dr. Lopez in the emergency room. CBC was normal. Sugars were 647. Creatinine 1.77. Sodium 129. Potassium 2.9. At that time, the patient was admitted to the hospital with chest pain. EKG was normal sinus. Rule out ACS and hyperosmolar, hyperglycemia. REVIEW OF SYSTEMS: CONSTITUTIONAL: Weakness, tiredness. No fever, no chills. HEENT: Normal. ENDOCRINE: Elevated blood sugar. No weight gain; no weight loss. CVS: Chest pain. No PND, no orthopnea. No shortness of breath. No PND, no orthopnea. RESPIRATORY: No cough, no congestion. No hemoptysis. GI: No nausea, no vomiting. No abdominal pain. No melena. : No hematuria. No polyuria. MUSCULOSKELETAL: No joint swelling. PSYCHIATRIC: Not anxious. No depression. No suicidal thoughts. No homicidal thoughts. SKIN: Intact, no open lesions. PAST MEDICAL HISTORY: CAD status post stent in 2014 Dyslipidemia Hypertension CVA TIA Asthma Sleep apnea CPAP GERD Osteoarthritis DJD spine Depression/anxiety PAST SURGICAL HISTORY: Cholecystectomy Appendectomy PERSONAL HISTORY: The patient use to smoke but quit January 2017. FAMILY HISTORY: Cardiac problems. MEDICATIONS: (HOME) Prilosec Nitroglycerin Multivitamin Metoprolol Aspirin Hydroxyzine Humulin Prozac Atorvastatin Lisinopril Farxiga ALLERGIES: IODINE PHYSICAL EXAMINATION: GENERAL: Sick looking lady, lying in bed not in any distress. V/S: BP 153/93, respiratory rate 24, heart rate 101, temperature 97.0, saturation 98. HEENT: Atraumatic, normocephalic. No scleral icterus. Pallor positive. Mucosa dry. NECK: Supple. No JVD, no bruit. No lymphadenopathy. No thyromegaly. HEART: S1, S2 normal. No murmur. No cyanosis or clubbing. No ascites. LUNGS: Decreased entry. Clear to auscultation. No rales or rhonchi. ABDOMEN: Soft, nontender. Bowel sounds are active. No CVA tenderness. No rigidity or guarding. EXTREMITIES: No pedal edema. No cyanosis or clubbing MUSCULOSKELETAL: Normal joints, no swelling. NEUROLOGIC: The patient is awake and alert. SKIN: Intact; no open lesions. LYMPHATIC: No lymph nodes palpable. LABS: Sodium 129, potassium 2.9, chloride 90, bicarb 21, BUN 11, creatinine 1.77, glucose 647. ASSESSMENT: 1. HYPEROSMOLAR 2. HYPERGLYCEMIA 3. CHEST PAIN 4. HISTORY OF CAD STATUS POST STENT 5. DIABETES 6. HYPERTENSION 7. DYSLIPIDEMIA PLAN: 1. Admit the patient to the regular floor. 2. CBC, CMP today and daily. 3. Cardiac enzymes and troponins. 4. IV fluids. 5. Accu-Cheks every hour with coverage. 6. Continue home medications. 7. Zofran for nausea. 8. Replace potassium. TIME SPENT: MORE THAN 75 minutes MTDD
[2018-04-16] MEDS: CARAFATE PO SCH ×3 (13:38→20:12)
[2018-04-16] MEDS: TORADOL IVP PRN (19:51)
[2018-04-16] MEDS: DEMEROL 50 MG/ML SYRINGE IVP PRN (21:56)
[2018-04-17] MEDS: SODIUM CHLORIDE 1,000 ML IV SCH (06:33)
[2018-04-17] MEDS: PROTONIX PO SCH ×2 (09:17→17:13)
[2018-04-17] MEDS: LEXAPRO PO SCH (09:17)
[2018-04-17] MEDS: CARAFATE PO SCH ×4 (09:17→22:22)
[2018-04-17] MEDS: TOPROL XL PO SCH (09:17)
[2018-04-17] MEDS: ASPIRIN CHEWABLE PO SCH (09:18)
[2018-04-17] MEDS: JARDIANCE PO SCH (09:18)
[2018-04-17] MEDS: LIPITOR PO SCH (09:18)
--- NOTE | 2018-04-17 09:31 | DI ---
EXAM: Esophogram HISTORY: Reflux, difficulty swallowing COMPARISON: None FINDINGS: Esophogram was performed using barium. Esophageal motility is normal. Esophageal caliber i s normal. Esophogeal mucosal pattern is grossly normal, noting portions of the esophogus demonstrate single contrast opacification which limits evaluation. No filling defect is seen in the esophagus. Sm all hiatal hernia. During patient maneuvering, reflux was seen to the upper thoracic esophagus. IMPRESSION: Small hiatal hernia. During patient maneuvering, reflux was seen to the upper thoracic e sophagus.
--- NOTE | 2018-04-17 10:13 | PN ---
DATE OF SERVICE: 04/16/18 SUBJECTIVE: The patient was admitted from the emergency room for the hyperosmolar hyperglycemia. Blood sugars been getting better. CT of the abdomen and pelvis was showing thickening of the esophageal wall. She never had endoscopy or colonoscopy. No weight loss. REVIEW OF SYSTEMS: CONSTITUTIONAL: No fever, no chills. HEENT: Normal. ENDOCRINE: No weight gain, no weight loss. CVS: No angina symptoms. No CHF symptoms. No palpitations. No atypical chest pain for CAD. No shortness of breath. No PND, no orthopnea. RESPIRATORY: No cough, no hemoptysis. GI: No nausea, no vomiting. No abdominal pain. : No hematuria. No polyuria. MUSCULOSKELETAL: No joint swelling. PSYCHIATRIC: Not anxious. No depression. No suicidal thoughts. No homicidal thoughts. SKIN: Intact. No rash. PHYSICAL EXAMINATION: V/S: Blood pressure 103/61, respiratory rate 20, heart rate 68, temperature 98.2 with saturation 99%. HEENT: Normocephalic, atraumatic. Mucosa dry. Pallor positive. NECK: Supple. No JVD, no carotid bruit. No lymphadenopathy. LUNGS: Clear to auscultation. No rales or rhonchi. HEART: S1, S2 normal. No S3. No murmur, gallop or regurgitation. ABDOMEN: Soft, nontender. Bowel sounds active. No rigidity. No rebound or guarding. No CVA tenderness. No epigastric tenderness present. EXTREMITIES: No cyanosis, clubbing or pedal edema. MUSCULOSKELETAL: No joint swelling. NEUROLOGIC: Awake, alert. No focal deficit. LYMPHATIC: No lymph nodes palpable. SKIN: Intact. LABS: Sodium 138, potassium 3.5, chloride 100, bicarb 28, BUN 12, creatinine 1.07, glucose 145, WBC 6.73, hgb 13.8, hct 40.1 and plt count 238. ASSESSMENT: 1. Hyperosmolar hypoglycemia 2. Esophageal thickness on CT of abdomen and pelvis 3. COPD 4. Noncompliance 5. CAD status post stent 2014 6. History of CVA and TIA PLAN: 1. Soft diet 2. Barium swallow 3. Accu-checks with coverage 4. Toradol and Demerol 5. IV fluids TIME SPENT: More than 35 minutes MTDD
[2018-04-17] MEDS: DEMEROL 50 MG/ML SYRINGE IVP PRN ×2 (10:56→22:23)
[2018-04-17] MEDS: HUMULIN R SUBCUT PRN (17:54)
[2018-04-17] MEDS: JANUVIA PO SCH (22:22)
[2018-04-18] MEDS: PROTONIX PO SCH ×2 (05:31→16:51)
[2018-04-18] MEDS: CARAFATE PO SCH ×4 (05:31→21:10)
[2018-04-18] MEDS: HUMULIN R SUBCUT PRN ×4 (06:03→22:45)
[2018-04-18] MEDS: LEXAPRO PO SCH (09:07)
[2018-04-18] MEDS: JARDIANCE PO SCH (09:07)
[2018-04-18] MEDS: ASPIRIN CHEWABLE PO SCH (09:07)
[2018-04-18] MEDS: TOPROL XL PO SCH (09:08)
[2018-04-18] MEDS: LIPITOR PO SCH (09:08)
[2018-04-18] MEDS: LANTUS SUBCUT SCH (09:08)
[2018-04-18] MEDS: JANUVIA PO SCH (09:08)
[2018-04-18] MEDS: DEMEROL 50 MG/ML SYRINGE IVP PRN (09:09)
[2018-04-19] MEDS: CARAFATE PO SCH (05:37)
[2018-04-19] MEDS: PROTONIX PO SCH (05:38)
[2018-04-19 05:48] VITALS: BP 135/74; TEMP 98.4
[2018-04-19] MEDS: HUMULIN R SUBCUT PRN (06:44)
[2018-04-19] MEDS: ASPIRIN CHEWABLE PO SCH (08:01)
[2018-04-19] MEDS: JARDIANCE PO SCH (08:02)
[2018-04-19] MEDS: TOPROL XL PO SCH (08:02)
[2018-04-19] MEDS: LIPITOR PO SCH (08:02)
[2018-04-19] MEDS: JANUVIA PO SCH (08:02)
[2018-04-19] MEDS: LEXAPRO PO SCH (08:03)
[2018-04-19] MEDS: LANTUS SUBCUT SCH (08:03)
--- NOTE | 2018-04-19 08:12 | PCM.HOSP ---
- Initial Hospital Care [id number] 70 Minutes Bedside ([id number]): 04/15 - Subsequent Care [id number] 35 Minutes per Day ([id number]): 04/16. /. 04/18 - Hospital Discharge [id number] More than 30 Minutes ([id number]): 04/19
--- NOTE | 2018-04-21 13:40 | PN ---
DATE OF SERVICE: 04/17/18 SUBJECTIVE: The patient was admitted with hyperosmolar hyperglycemia. Sugars have been better. Her A1c is at 15. Abdominal pain and the epigastric pain has improved. REVIEW OF SYSTEMS: CONSTITUTIONAL: No fever, no chills. HEENT: Normal. ENDOCRINE: No weight gain, no weight loss. CVS: No angina symptoms. No CHF symptoms. No palpitations. No atypical chest pain for CAD. No shortness of breath. No PND, no orthopnea. RESPIRATORY: No cough, no hemoptysis. GI: No nausea, no vomiting. No abdominal pain. : No hematuria. No polyuria. MUSCULOSKELETAL: No joint swelling. PSYCHIATRIC: Not anxious. No depression. No suicidal thoughts. No homicidal thoughts. SKIN: Intact. No rash. PHYSICAL EXAMINATION: V/S: blood pressure 112/60, respiratory rate 16, heart rate 62, temperature 98.1 with saturation 98%. HEENT: Normocephalic, atraumatic. Mucosa dry. Pallor positive. No icterus. Epigastric discomfort. NECK: Supple. No JVD, no carotid bruit. No lymphadenopathy. LUNGS: Clear to auscultation. No rales or rhonchi. HEART: S1, S2 normal. No S3. No murmur, gallop or regurgitation. ABDOMEN: Soft, nontender. Bowel sounds active. No rigidity. No rebound or guarding. No CVA tenderness. EXTREMITIES: No cyanosis, clubbing or pedal edema. MUSCULOSKELETAL: No joint swelling. NEUROLOGIC: Awake, alert. No focal deficit. LYMPHATIC: No lymph nodes palpable. SKIN: Intact. LABS: Sodium 139, potassium 4.3, chloride 105, bicarb 29, BUN 7, creatinine 0.12, glucose 122. WBC 5.57, hgb 12.2, hct 36.5, plt count 198. ASSESSMENT: 1. Hyperosmolar hyperglycemia 2. Acid reflux 3. Diabetes, uncontrolled with A1c 16.5 4. Chest pain, noncardiac 5. Hyponatremia from the hyperglycemia 6. History of CVA 7. TIA 8. History of CAD status post stent 9. Hypertension 10.Asthma 11.Pneumonia 12.GERD PLAN: 1. Barium swallow 2. Continue Accu-checks with coverage TIME SPENT: More than 35 minutes MTDD
--- NOTE | 2018-04-21 14:27 | DS ---
DATE OF SERVICE: 04/19/18 FINAL DIAGNOSIS: 1. Hyperosmolar hyperglycemia 2. Noncompliance with diabetes medication, HPA1c is 15.2 3. History of CAD status post stent 4. History of CVA 5. Pneumonia 6. Sleep apnea 7. Osteoarthritis 8. DJD spine 9. Thickening of the esophageal wall per CAT scan, the patient is going to see Dr. Evangelista for the endoscopy. Again, explained to the patient how important it is to have endoscopy in review of high risk for the cancer. 10.Hysterectomy 11.Cholecystectomy 12.Appendectomy 13.Status post hypernatremia 14.Status post Hypokalemia DISCHARGE INSTRUCTIONS: Discharge the patient home. Continue the rest of the home medications. MEDICATIONS AT DISCHARGE: Metoprolol Lexapro Jardiance Lipitor NEW PRESCRIPTIONS: Lantus 10 SUBCUT daily Protonix 10mg twice a day Carafate HS Januvia 50mg PO daily DIET INSTRUCTIONS: Cardiac and healthy diet ACTIVITY: As much as tolerated DISEASE SPECIFIC EDUCATION: Diabetes DKA Hyperosmolar hyperglycemia been discussed and verbalized understanding. HOSPITAL COURSE: Josefina Rivera 57 year old female came to the emergency room with the epigastric pain, nausea and vomiting for 2-3 days only food material, whatever she is eating. Seen by Dr. Lopez in the emergency room. Sugar was 647 with sodium 129, potassium 2.9. WBC was normal. Chest x-ray was negative. Cardiac enzymes and Troponin are negative. At that time she was admitted to the hospital for the hyperosmolar hyperglycemia. Accu-checks with the coverage done. Gradually the sugars were coming down. She is on the Accu-checks and she is on the Jardiance. HPA1c was 15.2 so we added the Januvia 50 and the Lantus 10 units and sugars were getting better. CT abdomen and pelvis done for the epigastric pain which did show the thickening of the lower esophageal wall. 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 Evangelista in review of high risk for the cancer. Barium swallow which did show the reflux and reassure of her diagnosis. The patient been up and about still she eating [employer] food and potato chips and fried food despite telling her multiple times she does not listen. Explained about high risk for coronary artery disease and stroke and verbalized understanding. As sugars were getting better the patient being discharged home. TIME SPENT: MORE THAN 65 MINUTES MTDHenrik
== END 2018-04-19 08:43 | disposition home or self-care (01) | DRG 391 ==
LOC: ED 09:09 → MEDSURG B 10:58
PROVIDERS: ADMIT Emergency Medicine; ATTEND Emergency Medicine
DX: R11.0 Nausea (principal); E11.00 Type 2 diabetes mellitus with hyperosmolarity without nonketotic hyperglycemic-hyperosmolar coma (NKHHC); J18.9 Pneumonia, unspecified organism; J45.909 Unspecified asthma, uncomplicated; I10 Essential (primary) hypertension; I25.10 Atherosclerotic heart disease of native coronary artery without angina pectoris; R73.9 Hyperglycemia, unspecified; E78.5 Hyperlipidemia, unspecified; G47.30 Sleep apnea, unspecified; M19.90 Unspecified osteoarthritis, unspecified site; M47.9 Spondylosis, unspecified; K21.9 Gastro-esophageal reflux disease without esophagitis; F41.9 Anxiety disorder, unspecified; Z79.4 Long term (current) use of insulin; Z91.14 Patient's other noncompliance with medication regimen; Z86.73 Personal history of transient ischemic attack (TIA), and cerebral infarction without residual deficits
CPT/HCPCS: 36415; 80053; 81001; 82550; 82947; 82962; 83036; 83735; 84484; 85025; 93005; 93010; 99284

== ENCOUNTER 2018-08-03 13:38 | Inpatient (IN) ==
--- NOTE | 2018-08-03 16:21 | DI ---
EXAM: CHEST FRONTAL AND LATERAL VIEWS HISTORY: Cough. COMPARISON: 04/15/2018 FINDINGS: Heart size remains within normal limits. Lungs are mildly hyperinflated. No acute infiltr ates are seen. No vascular congestion. There is no consolidation, visible pleural fluid or pneumoth orax. Bones reveal no acute fracture. Old right-sided rib fractures. IMPRESSION: No acute cardiopulmonary process.
[2018-08-03] MEDS ORDERED: HUMULIN R SUBCUT PRN (16:57)
[2018-08-03] MEDS: SODIUM CHLORIDE 1,000 ML IV STA ×2 (16:58→17:14)
[2018-08-03] MEDS ORDERED: HUMULIN R 100 UNIT in SODIUM CHLORIDE 100 ML IV SCH (17:00)
[2018-08-03] MEDS ORDERED: HUMULIN R ONE ×2 (17:02→23:16)
--- NOTE | 2018-08-03 17:06 | ED.PDOC ---
General ED Provider: Dr. TAMARA EDWARDS Chief Complaint: Non-specific Complaint Stated Complaint: HIGH BLOOD SUGAR HAS NOT TAKEN HER INSULIN FOR 1 MONTH Time Seen by Physician: 13:40 Mode of Arrival: Walk-In Information Source: Patient Exam Limitations: No limitations Primary Care Provider: SERA BAH Nursing and Triage Documentation Reviewed and Agree: Yes Does patient meet sepsis criteria?: No If yes, has appropriate treatment been initiated?: No System Inflammatory Response Syndrome: Not Applicable Sepsis Protocol: For patient's 13 years and over: Temp is 96.8 and below OR 101 and greater Pulse >90 BPM Resp >20/minute Acutely Altered Mental Status Are patient's symptoms suggestive of a new infection, such as: -Pneumonia -Skin, Soft Tissue -Endocarditis -UTI -Bone, Joint Infection -Implantable Device -Acute Abdominal Infection -Wound Infection -Meningitis -Blood Stream Catheter Infection -Unknown Endocrine Complaint Exam - Diabetic Complication Complaint/Exam Onset/Duration: ONGOING X 1 MONTH Symptoms Are: Still present Timing: Constant Initial Severity: Moderate Current Severity: Moderate Character: Unresponsive Aggravating: Reports: None Alleviating: Reports: None Associated Signs and Symptoms: Denies: Decreased LOC, Polydipsia, Polyuria, Polyphagia, Weight loss, Abdominal pain, Nausea, Vomiting, Fever, Diaphoresis, Fruity breath Related History: Reports: Similar episode Cardiac Risk Factors: Reports: None CVA Risk Factors: Reports: None Serious Bacterial Infection Risk Factors: Reports: None Related Surgical History: Reports: None Acetone on Breath: No Dry Mucous Membranes: Yes Kussmaul Respirations: No Glascow Coma Scale (see protocol): 15 Meningeal Signs: No Focal Weakness: None Focal Sensory Loss: None Gait: Normal Nystagmus Present: No Gag Reflex Present: Yes Romberg Test Positive: No Babinski Sign: Negative Right, Negative Left Differential Diagnoses: Hyperosmolar State Quality Indicator For Non-Traumatic Chest Pain/Syncope: EKG Performed Review of Systems - Review Of Systems Constitutional: Reports: No symptoms Eyes: Reports: No symptoms Ears, Nose, Mouth, Throat: Reports: No symptoms Respiratory: Reports: No symptoms Cardiac: Reports: No symptoms GI: Reports: No symptoms : Reports: Dysuria (VAGINAL ITCHING) Musculoskeletal: Reports: No symptoms Skin: Reports: No symptoms Neurological: Reports: No symptoms Endocrine: Reports: No symptoms Hematologic/Lymphatic: Reports: No symptoms All Other Systems: Reviewed and Negative Past Medical History - Past Medical History Previously Healthy: No Endocrine: Reports: DM 2 Cardiovascular: Reports: CAD, HI, Hypertension Respiratory: Reports: COPD Hematological: Reports: None Gastrointestinal: Reports: GERD Genitourinary: Reports: None Neuro/Psych: Reports: None Musculoskeletal: Reports: Arthritis Cancer: Reports: None Last Menstrual Period: none Other Pertinent Past Medical History: GALLBLADDER REMOVAL, APPENDECTOMY, HYSTERECTOMY - Surgical History General Surgical History: Reports: Hysterectomy, Appendectomy, Cholecystectomy - Family History Family History: Reports: Unknown - Social History Smoking Status: Former smoker Hx Substance Use: No Alcohol Screening: None - Immunizations Influenza Vaccine within 12 Months: No Pneumococcal Vaccine up to Date: No Physical Exam - Physical Exam Appearance: Well-appearing, No pain distress, Well-nourished Eyes: MELISSA, EOMI, Conjunctiva clear ENT: Ears normal, Nose normal, Oropharynx normal Respiratory: Airway patent, Breath sounds clear, Breath sounds equal, Respirations nonlabored Cardiovascular: RRR, Pulses normal, No rub, No murmur GI/: Soft, Nontender, No masses, Bowel sounds normal, No Organomegaly Musculoskeletal: Normal strength, ROM intact, No edema, No calf tenderness Skin: Warm, Dry, Normal color Neurological: Sensation intact, Motor intact, Reflexes intact, Cranial nerves intact, Alert, Oriented Psychiatric: Affect appropriate, Mood appropriate Interpretation - Radiology Interpretation Radiology Results: Negative Exam Interpreted: 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 Rhythm: Sinus Ectopy: None - EKG Interpretation Rate: Normal Rhythm: Sinus Ectopy: None Neeses: Left ST Segment: Normal Physician Notification - Case Discussed Physician Notified: HOSPITALIST Time of Notification: 17:07 Admit To: Inpatient Critical Care Note - Critical Care Note Total Time (mins): 0 Course - Course Hematology/Chemistry: 08/03/18 14:10 08/03/18 14:10 Orders, Labs, Meds: Lab Review 08/03/18 08/03/18 08/03/18 14:10 14:10 14:10 WBC 6.00 RBC 5.43 H Hgb 15.5 Hct 46.0 MCV 84.7 MCH 28.5 MCHC 33.7 RDW Coeff of Balwinder 12.1 Plt Count 301 Immature Gran % (Auto) 0.5 Neut % (Auto) 77.5 Lymph % (Auto) 15.8 [place] % (Auto) 4.8 Eos % (Auto) 0.2 Baso % (Auto) 1.2 Immature Gran # (Auto) 0.0 Neut # (Auto) 4.7 Lymph # (Auto) 1.0 Davie # (Auto) 0.3 L Eos # (Auto) 0.0 Baso # (Auto) 0.1 Puncture Site O2 Saturation ABG pH ABG pCO2 ABG pO2 ABG HCO3 ABG Total CO2 ABG Base Excess Aniket Test FiO2 % Sodium 122.0 L Potassium 4.80 Chloride 80.0 L Carbon Dioxide 25.0 Anion Gap 21.80 BUN 17.0 Creatinine 0.80 Estimated GFR (MDRD) 73.00 BUN/Creatinine Ratio 21.25 Glucose 1047.0 H* Calcium 8.80 Total Bilirubin 1.30 AST 35.0 ALT 26.0 Alkaline Phosphatase 189.0 H Total Creatine Kinase < 20.0 L Troponin I 0.019 Total Protein 6.60 Albumin 3.60 Globulin 3.00 Albumin/Globulin Ratio 1.20 Urine Color Urine Clarity Urine pH Ur Specific [place] Urine Protein Urine Glucose (UA) Urine Ketones Urine Blood Urine Nitrite Urine Bilirubin Urine Urobilinogen Ur Leukocyte Esterase 08/03/18 08/03/18 14:35 16:03 WBC RBC Hgb Hct MCV MCH MCHC RDW Coeff of Balwinder Plt Count Immature Gran % (Auto) Neut % (Auto) Lymph % (Auto) [place] % (Auto) Eos % (Auto) Baso % (Auto) Immature Gran # (Auto) Neut # (Auto) Lymph # (Auto) [place] # (Auto) Eos # (Auto) Baso # (Auto) Puncture Site rrad O2 Saturation 96.0 ABG pH 7.426 ABG pCO2 35.3 ABG pO2 79.0 L ABG HCO3 23.2 ABG Total CO2 24 ABG Base Excess -1 Aniket Test + FiO2 % 21.0 Sodium Potassium Chloride Carbon Dioxide Anion Gap BUN Creatinine Estimated GFR (MDRD) BUN/Creatinine Ratio Glucose Calcium Total Bilirubin AST ALT Alkaline Phosphatase Total Creatine Kinase Troponin I Total Protein Albumin Globulin Albumin/Globulin Ratio Urine Color Light Urine Clarity Clear Urine pH 5.5 Ur Specific [place] <=1.005 Urine Protein Negative Urine Glucose (UA) 2+ Urine Ketones Trace Urine Blood Negative Urine Nitrite Negative Urine Bilirubin Negative Urine Urobilinogen 0.2 Ur Leukocyte Esterase Negative Orders Category Date Time Status ABG DRAW REQUEST Stat CARDIO 08/03/18 16:03 Completed EKG-(ED ONLY) Stat CARDIO 08/03/18 16:03 Completed EKG-(IP & OP ONLY) DAILY CARDIO 08/04/18 06:00 Ordered EKG-(IP & OP ONLY) DAILY CARDIO 08/05/18 06:00 Ordered EKG-(IP & OP ONLY) DAILY CARDIO 08/06/18 06:00 Ordered ACTIVITY .Complete BR CARE 08/03/18 16:54 Ordered BLOOD GLUCOSE MONITORING ACCUCHECK Q6H CARE 08/03/18 16:54 Ordered GIVE HS SNACK 2100 CARE 08/03/18 16:55 Ordered INTAKE & OUTPUT Q8HR CARE 08/03/18 16:54 Ordered VITAL SIGNS Q4HR CARE 08/03/18 16:54 Ordered ADA 1800 RENÉE. DIET DIETARY 08/03/18 Dinner Ordered HS SNACK DIETARY 08/03/18 Dinner Ordered ABG Stat LAB 08/03/18 16:03 Completed CBC W/ AUTO DIFF Stat LAB 08/03/18 14:10 Completed CMP [COMPREHENSIVE METABOLIC PANEL] Stat LAB 08/03/18 16:56 Stop Req CMP [COMPREHENSIVE METABOLIC PANEL] Stat LAB 08/03/18 19:00 Ordered CMP [COMPREHENSIVE METABOLIC PANEL] Stat LAB 08/03/18 21:00 Ordered CMP [COMPREHENSIVE METABOLIC PANEL] Stat LAB 08/03/18 23:00 Ordered COMPREHENSIVE METABOLIC PANEL Stat LAB 08/03/18 14:10 Completed CREATINE KINASE Q8H LAB 08/03/18 23:00 Ordered CREATINE KINASE Q8H LAB 08/04/18 07:00 Ordered CREATINE KINASE Stat LAB 08/03/18 14:10 Completed TROPONIN I Q8H LAB 08/03/18 23:00 Ordered TROPONIN I Q8H LAB 08/04/18 07:00 Ordered TROPONIN I Stat LAB 08/03/18 14:10 Completed UA [URINALYSIS C & S IF INDICATED] Stat LAB 08/03/18 16:43 Ordered URINALYSIS C & S IF INDICATED Stat LAB 08/03/18 14:35 Completed 0.9 % Sodium Chloride [Sodium Chloride] 100 ml MEDS 08/03/18 17:00 Ordered Insulin Regular, Human [Humulin R] 100 unit IV 2 unit/hr Insulin Regular, Human [Humulin R] MEDS 08/03/18 16:57 Ordered See Protocol SUBCUT PRN PRN SODIUM CHLORIDE 0.9% @ 1,000 MLS/HR(1,000ml) MEDS 08/03/18 16:54 Ordered Sodium Chloride 0.9% [Sodium Chloride] 1,000 ml IV BOLUS Sodium Chloride 0.9% [Sodium Chloride] 1,000 ml MEDS 08/03/18 17:00 Ordered IV 500 mls/hr CHEST, 2 VIEWS PA & LAT Stat RADS 08/03/18 16:03 Completed Medications Generic Name Dose Route Start Last Admin Trade Name Freq PRN Reason Stop Dose Admin Sodium Chloride 1,000 mls @ 1,000 mls/hr 08/03/18 16:54 08/03/18 16:58 Sodium Chloride IV 08/03/18 17:53 1,000 mls/hr BOLUS STA Administration Sodium Chloride 1,000 mls @ 500 mls/hr 08/03/18 17:00 Sodium Chloride IV .Q2H CORNELIO Insulin Human Regular 100 unit 100 mls @ 2 mls/hr 08/03/18 17:00 / Sodium Chloride IV .Q24H CORNELIO Protocol 2 UNIT/HR Insulin Human Regular 0 unit 08/03/18 16:57 Humulin R SUBCUT PRN PRN Hyperglycemica Protocol Vital Signs: Temp Pulse Resp BP Pulse Ox 08/03/18 13:39 96.6 F L 117 H 22 138/81 98 Departure - Departure Time of Disposition: 17:07 Disposition: ADMITTED INPATIENT Discharge Problem: Hyperosmolar syndrome Instructions: Hyperosmolar Hyperglycemic State (ED) Condition: Good Pt referred to PMD for follow-up: Yes IPMP verified?: No Additional Instructions: Please call your Family Physician as soon as possible to schedule a follow-up appointment. Allergies/Adverse Reactions: Allergies iodine Adverse Reaction (Verified 08/03/18 13:46) INCLUDES IV CONTRAST Home Medications: Ambulatory Orders Omeprazole [Prilosec] 20 mg PO DAILY #30 01/02/15 Nitroglycerin 0.4 mg SL PRN 05/25/15 Multivitamin [Multi-Vitamin Daily] 1 each PO DAILY 01/25/17 Aspirin 81 mg PO d 02/14/17 Metoprolol Succinate 75 mg PO d 02/14/17 Disposition Discussed With: Patient
[2018-08-03] MEDS ORDERED: NITROSTAT SL PRN (17:30)
[2018-08-03] MEDS ORDERED: TOPROL XL PO SCH (17:30)
[2018-08-03] MEDS: SODIUM CHLORIDE 1,000 ML IV SCH ×3 (17:54→22:14)
[2018-08-03 18:25] VITALS: BMI 26.2
[2018-08-03] MEDS ORDERED: LOVENOX SUBCUT SCH (21:30)
[2018-08-03] MEDS ORDERED: SODIUM CHLORIDE 1,000 ML IV SCH (21:30)
[2018-08-03] MEDS: TYLENOL PO PRN (21:50)
[2018-08-03] MEDS: HUMULIN R SUBCUT PRN (23:26)
[2018-08-03] MEDS ORDERED: LACTATED RINGERS 1,000 ML IV SCH (23:30)
[2018-08-04] MEDS ORDERED: HUMULIN R ONE (00:16)
[2018-08-04] MEDS: HUMULIN R SUBCUT PRN (00:19)
[2018-08-04] MEDS ORDERED: D5%-NS-KCL 20 MEQ/L IV SOL 1,000 ML IV SCH (05:30)
[2018-08-04] MEDS ORDERED: LANTUS SUBCUT STA ×2 (08:36→20:14)
[2018-08-04] MEDS: TOPROL XL PO SCH ×2 (08:48→08:49)
[2018-08-04] MEDS: ZESTRIL PO SCH (08:49)
[2018-08-04] MEDS: LIPITOR PO SCH (08:49)
[2018-08-04] MEDS: ASPIRIN CHEWABLE PO SCH ×3 (08:49→10:14)
[2018-08-04] MEDS ORDERED: TOPROL XL PO SCH (09:00)
[2018-08-04] MEDS ORDERED: HUMULIN R SUBCUT SCH (12:00)
[2018-08-04] MEDS: HUMULIN R SUBCUT SCH (17:19)
[2018-08-04] MEDS: LACTATED RINGERS 1,000 ML IV SCH ×2 (17:20→17:42)
[2018-08-04] MEDS: LOVENOX SUBCUT SCH (20:28)
[2018-08-04] MEDS: TYLENOL PO PRN (21:26)
[2018-08-04] MEDS ORDERED: LYRICA PO STA (21:53)
[2018-08-05] MEDS: LACTATED RINGERS 1,000 ML IV SCH ×3 (02:57→09:25)
--- NOTE | 2018-08-05 08:17 | HP ---
DATE OF SERVICE: 08/03/18 CHIEF COMPLAINT: Not feeling well had been for several days and ran out of medications a month ago and had used insulin sparingly until two weeks ago. Thirsty all the time and nervous. Claimed to have lost weight. The patient also had postprandial vomiting although not all the time and lost 30 pounds. Not knowing the span of time. She has vaginitis. SOURCE OF HISTORY: The patient. HISTORY OF PRESENT ILLNESS: The patient was examined at the emergency room since her provider was not at the office at the time her presentation. The patient in the emergency room was found to have severe hyperglycemia and blood sugar 1,007 and not acidotic. pH was 7.426, oxygen saturation 96, pCO2 35.3, pO2 79. HCO3 23.2, total cO2 24, base excess -1, FiO2 21. The patient was given a bolus of normal saline in the emergency room and continued at 500cc an hour after that. The patient at the time of my examination was alert and responsive. She did tell me that she was in the hospital and discharged and saw Dr. Carvalho after discharge for followup and was told by Dr. Carvalho that he would write the prescriptions on her next visit about a week from the last one. Dr. Carvalho however was no longer part of the clinic when she came back and so she did not fill her prescription and did not seek for another provider. PAST PERSONAL HISTORY: The patient is hypertensive Diabetes mellitus CVA Myocardial infarction COPD Fractured ribs Pneumothorax Mass right kidney Umbilical hernia Cholecystectomy Appendectomy Hysterectomy Myocardiac infarction with cardiac catheterization and stent in 2014. The patient also claimed to have had asthma but had not had any acute episodes for years. Pneumothorax was in January of 2016 with rib fractures from an accident. Diagnosed with diabetes only 3 years, December 30, 2014. FAMILY HISTORY: Sister had myocardial infarction Brother myocardial infarction Father had heart disease and of AL at age 42. Mother had coronary artery disease and of AL at age 63. SOCIAL HISTORY: The patient is single and lives with her grandchild who is 23 years of age, granddaughter. Two granddaughters evidently live with her since Selene and Pablo Rivera have the same address as the patient. MEDICATIONS: Omeprazole Nitroglycerin 0.4mg PRN Multivitamin Metoprolol succinate 50mg ER 75mg daily Aspirin 81mg daily Hydroxyzine 50mg at bedtime Prozac 20mg daily Celexa 10mg daily Lisinopril 40mg daily Novolin R 1-12 units before meals PRN Basaglar 10 units at bedtime Invokana 300mg tablet daily Lipitor 20mg daily The patient is using One Touch Ultra glucometer ALLERGIES: Iodine REVIEW OF SYSTEMS: CONSTITUTIONAL: The patient denies any fever or chills and has fatigue. The patient just doesn't feel well. 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 VISUAL: Denies any blurred vision or double vision or loss of vision AUDITORY: Hearing is adequate. Denies any tinnitus, pain or drainage. RESPIRATORY: The patient has cough occasional. No shortness of breath with usual exertion and no hemoptysis. CARDIOVASCULAR: Denies any chest pain GASTROINTESTINAL: The patient has decreased appetite at home and had some episode of vomiting postprandial. No hematemesis. No diarrhea and no blood in the stool. Denies any abdominal pain. MUSCULOSKELETAL: The patient has generalized muscular aches. This is several days duration. ENDOCRINE: The patient has polydipsia. Dryness of the mouth or lips. INTEGUMENT: The patient has some chronic ulceration in the leg with poor healing. No pruritus. HEMATOLOGIC: Negative PSYCHIATRIC: Affect appears to be normal. PHYSICAL EXAMINATION: GENERAL: We have a 57 year old female admitted to the hospital by the emergency room because of severe hyperglycemia. Blood sugar 1007. The patient is not acidotic. Urine specific gravity was 1.005. Her WBC nitrite negative, leukocyte esterase negative. NT Pro-BNP is 95.5. VITAL SIGNS: Temperature 96.6, pulse 117, blood pressure 138/81, respiratory rate 22, oxygen saturation 98 room air. 5'1, 136 pounds BMI 26.1. HEAD: Unremarkable. Scalp has no active dermatitis. FACE: Symmetrical and equal with no facial weakness. She denies any tenderness to palpation under pressure in the frontal maxillary sinus areas. EYES: Pupils equal/reactive to light. Conjunctivae not pale. Sclerae not icteric. Round. About 3mm in size. MOUTH: Unremarkable. THROAT: No inflammation, tumors or exudate. NECK: No masses. No bruit. No tenderness. No rigidity. EAR: External ear unremarkable. CHEST: Symmetrical and equal with good expansion LUNGS: Breath sounds are heard in both sides with rales or wheezing. HEART: Audible and regular with good tones. No murmurs. ABDOMEN: Flat, soft with no remarkable tenderness. No guarding. Bowel sounds are active. No masses palpable. EXTERNAL GENITALIA: Not examined RECTAL: Not performed LOWER EXTREMITIES: Symmetrical and equal with no significant edema. Pedal pulse present but the right posterior tibials are markedly diminished UPPER EXTREMITIES: Symmetrical and equal. ASSESSMENT: 1. Hyperglycemia, severe 2. Diabetes mellitus, on insulin 3. History of noncompliance, no medications for the last month 4. History of coronary artery disease 5. Status post AL post stent 2014 6. History of TIA and CVA with no residuals. 7. History of depression on SSRI 8. Chronic tobacco use and abuse 9. History of hysterectomy 10.Cholecystectomy 11.Appendectomy Medication on discharge 03-05-18 had Lexapro 20mg and Prozac 20mg. This patient' s previous admission showed severe hyperglycemia in April 2018 or 647, 02/27/18 756. Hgb A1c 14.4 in February. Back in 2014 the blood sugar in the emergency room was 613 A1c 11.8. This patient had been on Glipizide. TIME SPENT: GREATER THAN 65 MINUTES MTDD
[2018-08-05] MEDS: HUMULIN R SUBCUT SCH (09:25)
--- NOTE | 2018-08-05 09:29 | PN ---
DATE OF SERVICE: 08/04/18 SUBJECTIVE: The patient's blood sugar has come down to 300 and so the insulin infusion was discontinued. The IV also was changed to Lactated Ringers. The patient was then given a coverage sliding scale. A formula of blood sugar determine minus 100 divided by 20 equals the number of units to be given subcutaneously. This patient's sugar was covered accordingly. The patient's blood sugar did go down without any loss of consciousness in the ornamenter hand hours. Juice and food and I did order an IV an D5 Lactated Ringers to run at 125cc an hour. Told her to continue the Accu-check without any coverage. The patient during the examination this morning is alert and responsive. She denies any chest pain but has some soreness all over. She did not have any fever at home and non in the hospital. LUNGS: Clear but diminished breath sounds HEART: Audible with good tones ABDOMEN: Non tender Sugar is high but I would rather have it higher. We will have to bring the sugar down to acceptable level. The patient will also be referred to Cardiology because of the previous problems. I did talk to Brit Ortega earlier and I did inform her that I would like to talk to the relatives since I had no seen one since she was admitted to the hospital [facility]
[2018-08-05] MEDS: ASPIRIN CHEWABLE PO SCH (09:31)
[2018-08-05] MEDS: ZESTRIL PO SCH (09:31)
[2018-08-05] MEDS: LIPITOR PO SCH (09:32)
[2018-08-05] MEDS: TOPROL XL PO SCH ×2 (09:32→09:33)
[2018-08-05] MEDS: HUMULIN R SUBCUT PRN ×4 (09:51→20:52)
[2018-08-05] MEDS: SODIUM CHLORIDE 1,000 ML IV SCH ×2 (10:21→19:35)
[2018-08-05] MEDS: TYLENOL PO PRN (16:35)
[2018-08-05] MEDS: LOVENOX SUBCUT SCH (20:29)
[2018-08-05] MEDS ORDERED: NEURONTIN PO STA (20:40)
[2018-08-05] MEDS ORDERED: NEURONTIN PO SCH (21:00)
[2018-08-05] MEDS ORDERED: ATARAX PO STA (21:02)
[2018-08-05] MEDS ORDERED: ATARAX PO PRN (22:13)
[2018-08-06] MEDS: TYLENOL PO PRN (01:26)
[2018-08-06] MEDS: SODIUM CHLORIDE 1,000 ML IV SCH ×2 (02:39→05:30)
[2018-08-06] MEDS: HUMULIN R SUBCUT PRN ×2 (05:30→10:46)
[2018-08-06] MEDS: ASPIRIN CHEWABLE PO SCH (08:23)
[2018-08-06] MEDS: ZESTRIL PO SCH (08:26)
[2018-08-06] MEDS: LIPITOR PO SCH (08:27)
[2018-08-06] MEDS: TOPROL XL PO SCH (08:48)
[2018-08-06] MEDS ORDERED: PROZAC PO SCH (09:00)
[2018-08-06] MEDS ORDERED: LEXAPRO PO SCH (09:00)
[2018-08-06] MEDS ORDERED: ATARAX PO PRN (09:00)
[2018-08-06 10:15] VITALS: BP 134/72; TEMP 97.4
--- NOTE | 2018-08-06 11:53 | PCM.DC ---
Final Diagnosis: (1) Hyperosmolar syndrome Status: Acute Code(s): E87.0 - HYPEROSMOLALITY AND HYPERNATREMIA SNOMED Code (s): 60125468, 35963200 (2) Diabetes type 2, uncontrolled Status: Inactive Code(s): E11.65 - TYPE 2 DIABETES MELLITUS WITH HYPERGLYCEMIA SNOMED Code(s): 339564271, 557635545 (3) Non-compliance with treatment Status: Inactive Code(s): Z91.19 - PATIENT'S NONCOMPLIANCE W OTH MEDICAL TREATMENT AND REGIMEN SNOMED Code(s): 2226041 (4) BMI 26.0-26.9,adult Status: Acute Code(s): Z68.26 - BODY MASS INDEX (BMI) 26.0-26.9, ADULT SNOMED Code(s): 142012427 Reason for Hospitalization: Hyperglycemia, No meds in 1 month, non compliant. Prognosis at Discharge: Vitals stable, Labs stable, hyperglycemia is more controlled, Sodium corrected to normal. Condition at Discharge: Stable, improved. Still needs some titration of insulin. I believe 16 units of tresiba (LANTUS SENT TO PHARMACY but cannot get until after 08/07/18) and 5 units base + correction of insulin should be a great place to start for her. I also feel that we can titrate up the dose quickly as outpatient to get her to euglycemia. Would consider increasing by 1 click of pen every 3rd day if any sugars Fasting >180. Titrate to effect every 3rd day. Medications at Discharge: Ambulatory Orders Medication Instructions Recorded Omeprazole [Prilosec] 20 mg PO DAILY #30 01/02/15 Nitroglycerin 0.4 mg SL PRN 05/25/15 Multivitamin [Multi-Vitamin Daily] 1 each PO DAILY 01/25/17 Aspirin 81 mg PO d 02/14/17 Gabapentin [Neurontin] 300 mg PO BEDTIME #14 capsule 08/06/18 Hydroxyzine HCl [Atarax] 50 mg PO BEDTIME PRN 30 Days #30 08/06/18 tab Insulin Glargine,Hum.rec.anlog 16 unit SQ DAILY #5 insuln.pen 08/06/18 [Lantus Solostar] Insulin Lispro [Humalog Kwikpen] 5 - 10 unit SQ TID #5 insuln.pen 08/06/18 Lancets [Onetouch Delica] 1 each MC TID 30 Days #120 each 08/06/18 Metoprolol Succinate [Toprol Xl] 50 mg PO DAILY 30 Days #30 08/06/18 tab.er.24h Lexapro 20mg 1 po daily. STOP LEXAPRO 10mg daily STOP FLUOXETINE 20mg daily Insulin sample of tresiba given to patient. She can use that until gone and then replace with lantus solostar. Lab/Diagnostics: Laboratory Last Values WBC 4.58 K/ul (4.6-10.2) L 08/05/18 08:25 RBC 4.74 10^6/ul (4.20-5.40) 08/05/18 08:25 Hgb 14.0 g/dl (12.0-16.0) 08/05/18 08:25 Hct 40.2 % (37.0-47.0) 08/05/18 08:25 MCV 84.8 fl (81.0-99.0) 08/05/18 08:25 MCH 29.5 pg (27.0-31.0) 08/05/18 08:25 MCHC 34.8 (31.8-35.4) 08/05/18 08:25 RDW Coeff of Balwinder 11.9 % (11.6-14.8) 08/05/18 08:25 Plt Count 254 10^3/uL (140-440) 08/05/18 08:25 Immature Gran % (Auto) 0.2 % (0.0-5.0) 08/05/18 08:25 Neut % (Auto) 48.1 08/05/18 08:25 Lymph % (Auto) 43.2 (10.0-50.0) 08/05/18 08:25 Liberty % (Auto) 5.5 (0-10) 08/05/18 08:25 Eos % (Auto) 1.7 % (0.0-7.0) 08/05/18 08:25 Baso % (Auto) 1.3 % (0.0-3.0) 08/05/18 08:25 Immature Gran # (Auto) 0.0 (0.0-1.0) 08/05/18 08:25 Neut # (Auto) 2.2 K/ul (2.0-6.9) 08/05/18 08:25 Lymph # (Auto) 2.0 K/uL (0.60-3.4) 08/05/18 08:25 Liberty # (Auto) 0.3 K/uL (0.4-2.0) L 08/05/18 08:25 Eos # (Auto) 0.1 K/ul (0.0-0.7) 08/05/18 08:25 Baso # (Auto) 0.1 K/uL (0-0.2) 08/05/18 08:25 Puncture Site rrad 08/03/18 16:03 O2 Saturation 96.0 % (95-100) 08/03/18 16:03 ABG pH 7.426 (7.35-7.45) 08/03/18 16:03 ABG pCO2 35.3 mmHg (35-45) 08/03/18 16:03 ABG pO2 79.0 mmHg (85-100) L 08/03/18 16:03 ABG HCO3 23.2 (22.0-26.0) 08/03/18 16:03 ABG Total CO2 24 (22.0-28.0) 08/03/18 16:03 ABG Base Excess -1 (-2.0-2.0) 08/03/18 16:03 Aniket Test + 08/03/18 16:03 FiO2 % 21.0 % 08/03/18 16:03 Sodium 132.3 mmol/L (137-145) L 08/05/18 08:25 Potassium 3.75 mmol/L (3.5-5.1) 08/05/18 08:25 Chloride 98.8 mmol/L (98-107) 08/05/18 08:25 Carbon Dioxide 30.3 mmol/L (22-30.0) H 08/05/18 08:25 Anion Gap 6.95 08/05/18 08:25 BUN 9.6 mg/dL (7-17) 08/05/18 08:25 Creatinine 0.53 mg/dL (0.60-1.30) L 08/05/18 08:25 Estimated GFR (MDRD) 118.00 mL/min 08/05/18 08:25 BUN/Creatinine Ratio 18.11 08/05/18 08:25 Glucose 408.2 mg/dL (74-106) H D 08/05/18 20:14 Hemoglobin A1c > 14.00 (4.0-6.0) H 08/05/18 08:25 Calcium 8.88 mg/dL (8.4-10.2) 08/05/18 08:25 Total Bilirubin 0.74 mg/dL (0.2-1.3) 08/05/18 08:25 AST 27.9 U/L (14-36) 08/05/18 08:25 ALT 18.8 U/L (0-35) 08/05/18 08:25 Alkaline Phosphatase 115.8 U/L (53-141) 08/05/18 08:25 Total Creatine Kinase < 20.0 U/L (30-135) L 08/04/18 06:45 Troponin I 0.023 ng/ml (0.0000-0.120) 08/04/18 06:45 NT-Pro-B Natriuret Pep 95.500 pg/mL (0-124) 08/03/18 19:25 Total Protein 5.98 g/dL (6.3-8.2) L 08/05/18 08:25 Albumin 3.01 g/dL (3.5-5.0) L 08/05/18 08:25 Globulin 2.97 08/05/18 08:25 Albumin/Globulin Ratio 1.01 08/05/18 08:25 Triglycerides 229.7 mg/dL (0-150) H 08/05/18 08:25 Cholesterol 182.2 mg/dL (0-200) 08/05/18 08:25 LDL Cholesterol, Calc 102 mmol/L 08/05/18 08:25 VLDL Cholesterol 46 mg/dL (2-30) H 08/05/18 08:25 HDL Cholesterol 34.2 mg/dL (35-80) L 08/05/18 08:25 Cholesterol/HDL Ratio 5.3 (4.5-5.5) 08/05/18 08:25 Vitamin B12 679 pg/mL (239-931) 08/06/18 04:30 Procalcitonin < 0.05 ng/mL (0.09) 08/03/18 19:25 TSH 1.770 uIU/L (0.465-4.68) 08/05/18 08:25 Free T4 1.39 ng/dL (0.78-2.19) 08/05/18 08:25 Urine Color Light (YELLOW) 08/03/18 14:35 Urine Clarity Clear (CLEAR) 08/03/18 14:35 Urine pH 5.5 (5-9) 08/03/18 14:35 Ur Specific [place] <=1.005 (1.005-1.030) 08/03/18 14:35 Urine Protein Negative (NEGATIVE) 08/03/18 14:35 Urine Glucose (UA) 2+ (NEGATIVE) 08/03/18 14:35 Urine Ketones Trace (NEGATIVE) 08/03/18 14:35 Urine Blood Negative (NEGATIVE) 08/03/18 14:35 Urine Nitrite Negative (NEGATIVE) 08/03/18 14:35 Urine Bilirubin Negative (NEGATIVE) 08/03/18 14:35 Urine Urobilinogen 0.2 (0.2) 08/03/18 14:35 Ur Leukocyte Esterase Negative (NEGATIVE) 08/03/18 14:35 Urine Osmolality 527 mOsmol/kg (.) 08/03/18 14:35 CXR 08/03/18: No acute process. Education Provided to Patient and Family: 1. Insulin pen how to use, how to store. 2. Glucose checks 3. Compliance with OV. Follow-ups: 1. [employer] Crumble this week. Disposition: HOME SELF-CARE Hospital Course: 57 yo WF pt of [employer] Crumble presented to ER 08/03/[address] Lopez saw patient at 1340 due to elevated glucose and no insulin in >1 month. Dx in ER with hyperosmolar state, EKG completed, ROS dysuria/vaginal itching, else negative, PMH w/ DM2, CAD, [place], HTN, COPD, GERD, arthritis, CVA, pneumohtorax, umbliical hernia, s/p miguel/appe/hysterectomy historically and poor compliance. PMHX reviewed from ER and H+P. CXR negative , laboratory monitor NSR, EKG NSR, D/w Dr. Valdes 4817 and admitted to inpatient status. Labs from ER showed WBC 6.0, Hgb 15.5, hct 46, plt 301. Sodium 122, K+ 4.8, Cr 0.80, glucose 1047. Sodium corrected to 145 via Mirella 1999 equation. CK was <20, troponin was negative, albumin 3.60. ABG O2 sat 96, ABG 7.426, Po2 79, CO2 35.3. hc03 23.2. Aniket positive. Urine with 2+ glucose, SG 1.005, trace ketones. Insulin drip started 2 units per hour, bolus NS given as well. She has not been on home meds, non compliance and admitted with hyperosmolar state. Dr Valdes admitted her to floor 122-1 and saw her. Reported to him several days of feeling tired/run down/no energy. Ran out of meds 1 month prior used insulin until about 2 weeks ago. Polydipsia, polyuria, polyphagia, despite decreased appetite. Lost weight of reported ~30lb decrease. I reviewed Dr. Valdes H+P, pending risk control representative from note 08/05/18 unavailable. A1C completed >14. Note from 08/04/18 2341 reviewed. Sugars droped to around 300 so infusion of insulin d/c. LR fluids, covered with SSI ((GLUCOSE-100)/20=# units). Blood sugars did decline per notes. Fluids adjusted throughout stay to LR 125cc.hr. Referred to cardiology, Dr. Deleon. Reviewed her glucose accuchecks: 08/03 19:00 500, 19:57 500, 21:00 500, 21:59 399, 23:00 351, 00:00 339, 08/04/18 04:20 50L, 08:00 360, 11:00 413, 14:00 499, 17:00 577, 21:00 422, 08/05/18 02:00 340, 06:18 269, 08:00 258, 09:43 357, 11:00 366, 14:00 420, 16: 34 281, 20:34 408, 08/06/18 05:23 230, 10:37 343. I reviewed MAR to monitor for daily units of insulin. NO long acting insulin was used (LANTUS 10 at home) , none given per nursing or from MAR. 08/05/18 16:37 6 units, 205, 15 units, 08/06/18 05:30 4 units, 10:46 today 8 units. She lives with grand daughters x 2 and she feels ready for d/c home. Sugars have been better controlled with sliding scale coverage. She needs all of her meds and d/c on a Holiday is difficult. I gave a sample of tresiba 200 units/ml to her, primed the pen and demo how to use the pen. We will put her on 16 units of this for the next week LOT [id number], Exp 05/2020. She gave herself the 16 units in the abdomen. I based this dosage off her weight and using 0.3-0.5 units/kg/day. I divided half of this into a senior care and then remainder into the meal time. I have sent rx for humalog to pharmacy with the following adjustment 150-200 5 units, 201-250 6 units, 251-300 7 units, 301-350 8 units, >350 10 units. Unfortunately pharamcies are closed today. I called local MD 1/2, soto Mejia all closed. [facility] does not take [place] medicaid. [facility] does take it but their system says she has medicare. We found her medicare card deep scanned into system only noted part A/B no Part D. She has no card with her, does not know where it is, has not taken meds in 1 month. I reviewed state formulary, lantus solostar and Humalog lorene are covered but the [facility] system says she is medicare and they cannot do anything on holiday. Our pharmacy cannot dispense. We have no samples of humalog. IN the interim as she wishes to go home and medically appears stable to go home, we will give her lunch doses here, return tonight for outpatient humalog, which the nurses thankfully suggested. I reviewed her home meds. I am concerned about polypharmacy, using prozac and lexapro. TO ease pill burden and reduce risks of serotonin syndrome, I will stop the prozac and add lexapro. She has had both of them last night, She will be okay to get the next dose tomorrow am. She will go to pharmacy in am. She noted she will come in tonight for insulin. BP is well controlled, vitals reviewed and she is ready for D/C based on medical parameters. Dr. Deleon saw her this am. We considered repeat CBC/CMP, I discussed sodium corrects to 135 with glucose and she is stable, no need to repeat labs today. He agreed and patient is going to be discharged this am. Spent >70 minutes working on discharge today, complicated by holiday schedule. Urine output >1.3ml/kg/hour output over last 3 12 hour I/O evaluations. Lengthy discussion about insulin/meds. Wuold f/u with Belia regularly so that titration of insulin could be done. Would consider starting with increasing the long acting insulin (Tresiba until pen is gone and then lantus). Would increase every 3rd day by 1 click if any of the 3 preceding days was >180 fasting. Keep sugar log, bring to clinic visits. Do not run out of meds. F/U outpatient regarding vaginitis as she did not complain of this to me today, stated it was okay/better. Activity: Ad Dinah Diet: ADA diabetic diet. Medications: Get new rx from pharmacy 08/07/18 insulin: Return tonight for night dose of humalog. D/C home. Day of D/C examination completed by me and unchanged from those of Dr. Valdes. Gen: Calm/collected/ AAOx3/pleasant. Understood topics, repeated them back to me. Stable for d/c. Pulm: CTAB I did not appreciate any rales (nurses noted mild). Cardiac: RRR No G/R/M Abd: S/F/NT BS present x4 HEENT: ARNOL COOKMI, NAD Plan: 1. Use tresiba until gone Sample given today - 16 units daily (does not matter what time they are taken). Do not put back into refrigerator, I primed pen for her, demo how to use pen. She gave self insulin in room. 2. Return tonight for Accucheck and Humalog injection 3. Go to pharmacy tomorrow and get the Rx I have sent. 4. Stop prozac and lexapro. New dose of lexapro 20mg sent to pharmacy to reduce risks of polypharmacy. No e/o Serotonin syndrome so far. 5. Please do not miss appts 6. See Belia Johns this week. >30 minutes spent on d/c today.
--- NOTE | 2018-08-10 08:59 | CONS ---
DATE OF CONSULTATION: 08/05/18 REASON FOR CONSULTATION: Hyperosmolar status HISTORY OF PRESENT ILLNESS: 57 year old white female who is noncompliant stopped taking her insulin. A month and a half ago she was hospitalized with blood glucose of 1,047. The patient's calculated serum amorality was greater than 320 mole per liter. The patient had no ketones in the urine. pH is greater than 7.3 in fact the patient' s pH was normal 7.42, CO3 is greater than 20 that is 23. The patient meets all the criteria for nonketonic hyperosmolar status with normal neurological function. The patient's sodium is 122 which is in conjunction with glucose of 1, 047. Potassium is 4.8. The patient's kidney functions are normal. REVIEW OF SYSTEMS: CONSTITUTIONAL: No night sweats. No fever or chills. Weakness and fatigue. HEENT: Eyes: No visual changes. No eye pain. No eye discharge. ENT: No sinus drainage. No epistaxis. No sinus pain. No sore throat. No odynophagia. No ear pain. No congestion. RESPIRATORY: Occasional cough with yellow sputum, no congestion. No hemoptysis. No shortness of breath. CARDIOVASCULAR: No angina symptoms. No CHF symptoms. No atypical chest pain for CAD. No palpitations. No orthopnea. GASTROINTESTINAL: No abdominal pain. No nausea or vomiting. No diarrhea or constipation. No hematemesis. No hematochezia. GENITOURINARY: No urgency. Frequency. Dysuria. No hematuria. No obstructive symptoms. No discharge. No pain. No significant abnormal bleeding. Vaginal itching and discharge. MUSCULOSKELETAL: No musculoskeletal pain. No joint swelling. Body aches all over. NEUROLOGICAL: No headache. No neck pain. No syncope. No seizures. No dizziness. PSYCHIATRIC: Not anxious. No depression. No suicidal thoughts. No homicidal thoughts. SKIN: No rash. No lesions. No wounds. ENDOCRINE: Weight loss. No weight gain. HEMATOLOGIC/LYMPHATIC: No anemia. No purpura. No petechiae. No prolonged or excessive bleeding. No palpable lymph nodes. MEDICATIONS: Not taking medications for 1-1.5 months Prilosec Nitroglycerin Multi-vitamin Metoprolol Aspirin Hydroxyzine Safesnap insulin Prozac Escitalopram Lisinopril Novolin Lipitor Invokana Lexapro ALLERGIES: Iodine PAST MEDICAL HISTORY/PAST SURGICAL HISTORY: Hypertension TIA Diabetes CVA Myocardial infarction COPD Pneumothorax with right rib fracture 2016. Mass right kidney Umbilical hernia Cholecystectomy Appendectomy Hysterectomy Myocardial infarction with cardiac catheterization and stent in 2015 SOCIAL/PERSONAL/FAMILY HISTORY: The patient is nonsmoker. In the past she had several hospitalizations with uncontrolled diabetes with blood sugar of more than 500. . Lives with granddaughter and great granddaughter. Family history; siblings VA, Father CAD; VA- age 42, Mother CAD; VA age 63 PHYSICAL EXAMINATION: GENERAL: The patient is lying/sitting in bed in no distress. VITAL SIGNS: Temperature 97.8, pulse 58, respiratory rate 16, blood pressure 113 /73 and pulse ox 99%. HEENT: Head normocephalic, atraumatic. Eyes: Extraocular muscles are intact. Pupils are equal, round and reactive to light and accommodation. Ears: No lesions. Nose appeared normal. Throat: No exudate or erythema. NECK: Supple. No JVP, no carotid bruit. No lymphadenopathy or thyromegaly. LUNGS: Clear to auscultation. Percussion note normal. Chest symmetrical. HEART: S1, S2, no S3. No murmurs. No cyanosis or clubbing. No ascites. Pulses: Dorsalis pedis and posterior tibial pulses +1 bilaterally. ABDOMEN: Soft. Nontender. Bowel sounds active. No CVA tenderness. No mass felt. EXTREMITIES: No edema. Full range of motion of all extremities, equal. NEUROLOGIC: No focal deficit. Cranial nerves II through XII are grossly intact. No headache, no double vision or headache. SKIN: Dry. Intact. Turgor - normal. LYMPHATIC: No palpable lymph nodes/no lymphedema. MUSCULOSKELETAL: Normal joints with no swelling. Muscle tone is normal. LABS: The patient's glucose has been fluctuating since her early hospitalization between 250 to 400. She has been given intermittent long acting insulin with regular insulin with meals. Chest x-ray no acute findings. CBC within normal limits except RBC 5.43, Room air ABG's total CO2 24. 96% saturation, pH 7.426, pCO2 35.3, pO2 79, HCO3 23. Sodium 122, Chloride 80, glucose 1047, Alkaline phosphatase 189, CPK, Troponin within normal limits, BNP 95.500. Urine 2+ glucose, Trace ketones. EKG: Sinus rhythm, pulmonary disease pattern. ASSESSMENT: 1. Nonketonic hyperosmolar status with no other significant immediate complications. Cardiovascular status is stable. Kidney functions are normal. Serum Osmolarities more than 20 with normal sodium bicarb. Serum pH. No ketones in the urine 2. Noncompliance 3. Dehydration 4. Hypertension 5. Dyslipidemia RECOMMENDATIONS: 1. Change the IV fluids to 1,000cc normal saline with 100cc per hour 2. Watch for fluid overload 3. Monitor CMP daily 4. Patient education carried out and strongly advised to take her insulin on a regular basis. All the complications of uncontrolled diabetes discussed with the patient. 5. Goal A1c discussed with the patient which should be 6-7. 6. The patient will be taken off long acting insulin 7. The patient is going to be started on sliding scale with coverage for now. 8. The patient did not have a CMP done this morning which has already been ordered STAT 9. T4 TSH and Lipids will be done 10.A1c is going to be done CONDITION: Stable Thanks for referral will follow. AMILCAR
--- NOTE | 2018-08-10 09:55 | CONS ---
DATE OF SERVICE: 08/06/18 CONSULT FOLLOWUP SUBJECTIVE: 57 year old white female hospitalized with blood sugar of more than 1,000. REVIEW OF SYSTEMS: CONSTITUTIONAL: No night sweats. No fatigue, malaise, lethargy. No fever or chills. HEENT: Eyes: No visual changes. No eye pain. No eye discharge. ENT: No runny nose. No epistaxis. No sinus pain. No sore throat. No odynophagia. No ear pain. No congestion. RESPIRATORY: No cough, no congestion. No hemoptysis. CARDIOVASCULAR: No angina symptoms. No CHF symptoms. No atypical chest pain for CAD. No palpitations. No shortness of breath. GASTROINTESTINAL: No abdominal pain. No nausea or vomiting. No diarrhea or constipation. No hematemesis. No hematochezia. GENITOURINARY: No urgency. No frequency. No dysuria. No hematuria. No obstructive symptoms. No discharge. No pain. No significant abnormal bleeding. MUSCULOSKELETAL: No musculoskeletal pain. No joint swelling. No arthritis. NEUROLOGICAL: No headache. No neck pain. No syncope. No seizures. No dizziness. PSYCHIATRIC: Not anxious. No depression. No suicidal thoughts. No homicidal thoughts. SKIN: No rash. No lesions. No wounds. ENDOCRINE: No unexplained weight loss. No weight gain. HEMATOLOGIC/LYMPHATIC: No anemia. No purpura. No petechiae. No prolonged or excessive bleeding. No palpable lymph nodes. PHYSICAL EXAMINATION: VITAL SIGNS: Temperature 97.7, pulse 60, respiratory rate 18, blood pressure 124 /70 and pulse ox 100% on room air HEENT: Head normocephalic, atraumatic. Eyes: Extraocular muscles are intact. Pupils are equal, round and reactive to light and accommodation. Ears: No lesions. Nose appeared normal. Throat: No exudate or erythema. NECK: Supple. No JVD, no carotid bruit. No lymphadenopathy or thyromegaly. LUNGS: Clear to auscultation. Percussion note normal. Chest symmetrical. HEART: S1, S2, no S3. No murmurs. No cyanosis or clubbing. No ascites. Pulses: Dorsalis pedis and posterior tibial pulses +1. ABDOMEN: Soft. Nontender. Bowel sounds active. No CVA tenderness. No mass felt. EXTREMITIES: No edema. Full range of motion of all extremities, equal. NEUROLOGIC: No focal deficit. Cranial nerves II through XII are grossly intact. No headache, no double vision or headache. SKIN: Not dry. Intact. Turgor - A lot better. LYMPHATIC: No palpable lymph nodes/no lymphedema. MUSCULOSKELETAL: Normal joints with no swelling. Muscle tone is normal. LABS: Blood sugar in the range of 250. Sodium 132, creatinine and BUN normal ASSESSMENT: 1. Hyperosmolar status 2. Hyponatremia has resolved 3. Diabetes Mellitus uncontrolled because of patient's noncompliance 4. Hypertension 5. Dyslipidemia 6. History of heavy smoking RECOMMENDATIONS: 1. The patient educated about coronary artery disease and risk factors and how to modify them 2. Complications of diabetes including foot ulcers discussed in detail 3. A1c goal discussed should be 6-7 4. Compliance stressed to the patient and advised to take the responsibility of her own health care. 5. Followup with primary care. 6. The patient needs to go back on her Lantus 15 units twice a day with sliding scale coverage. 7. Continue Statin and antihypertensive medications including manuel inhibitor CONDITION: Stable MTDD
--- NOTE | 2018-08-10 09:57 | CONS ---
08/04/18: Level 5 08/05/18: Intermediate 08/06/18: Intermediate MTDD
--- NOTE | 2018-08-11 08:32 | PN ---
DATE OF SERVICE: 08/05/18 SUBJECTIVE: I had a conversation with the patient with regards to her diabetes. I did inform Mrs. Rivera that I had reviewed some of her records most recent admissions to the hospital. Her blood sugar were 600 or higher on those admissions. I asked her why her sugars are not controlled. I asked whether she is taking her medication as they should be. She did admit to not going religiously following instructions of her medications. In the last one is that she did run out for a month and had given sporadically the Lantus or the Novalog. Finally did run out of this insulin two weeks prior to this admission. I felt that this patient is not a type 1 since did not run into so much problems except being fatigued with two weeks without medication. I had Dr. Deleon to consultation with regards to the patient not feeling well and the previous history of bypass maybe the sensation of not feeling well or healthy maybe partly due to the cardiac problems as well as the diabetes that is uncontrolled. Blood sugar is still high and he changed to sliding scale. I had discussed with Dr. Sandhu on how I would like to give the insulin. He can do in my absence what he felt is necessary and what he felt to be comfortable with him. Give a long acting followed by more or less definite number of the short acting before breakfast, before lunch and before supper. I do check two hour post prandial and if they are 190 and below to me that is satisfactory. If it is , then the dose that is fixed will be increased. The patient is going to have an echocardiogram by Dr. Deleon this afternoon. The patient did tell me that Dr. Deleon did examine her and do an echocardiogram. This patient will be followed by Dr. Saenz in my absence and Dr. Deleon on his consultation. [facility]
== END 2018-08-06 13:00 | disposition home or self-care (01) | DRG 638 ==
LOC: ED 13:38 → MEDSURG B 17:14
PROVIDERS: ADMIT General Practice; ATTEND General Practice
DX: E11.65 Type 2 diabetes mellitus with hyperglycemia (principal); E87.0 Hyperosmolality and hypernatremia; F32.9 Major depressive disorder, single episode, unspecified; R35.8 Other polyuria; R63.1 Polydipsia; R63.4 Abnormal weight loss; R10.9 Unspecified abdominal pain; R11.2 Nausea with vomiting, unspecified; R50.9 Fever, unspecified; R61 Generalized hyperhidrosis; R30.0 Dysuria; Z91.19 Patient's noncompliance with other medical treatment and regimen; Z68.26 Body mass index [BMI] 26.0-26.9, adult; Z79.4 Long term (current) use of insulin; Z72.0 Tobacco use
CPT/HCPCS: 36415; 80053; 80061; 81001; 82550; 82607; 82803; 82947; 82962; 83036; 83880; 83930; 83935; 84145; 84439; 84443; 84484; 85025; 93005; 93010; 96361; 96365; 97802; 99284

== ENCOUNTER 2018-08-06 16:58 | Outpatient (CLI) | payer OTHER ==
[2018-08-06] MEDS ORDERED: HUMALOG SUBCUT ONE (17:24)
[2018-08-06 17:28] VITALS: BP 134/69; TEMP 98
[2018-08-06] MEDS ORDERED: HUMALOG SUBCUT STA (17:29)
== END 2018-08-06 16:59 | disposition home or self-care (01) ==
LOC: OPMED 16:58
PROVIDERS: ATTEND Family Medicine
DX: E11.65 Type 2 diabetes mellitus with hyperglycemia (principal)
CPT/HCPCS: 82962; 96372